=== PATIENT | female | born 1950 | race Caucasian/White ===

== ENCOUNTER 2019-05-08 11:20 | Outpatient (CLI) | payer MEDICARE, SELFPAY ==
--- NOTE | ~2019-05-08 | XR_ITS ---
EXAMINATION: XR wrist LT min 3V DATE: 05/08/2019 11:49 INDICATION: Left wrist pain. TECHNIQUE: 4 views of left wrist were obtained. COMPARISON: Left wrist radiographs 01/28/2018 FINDINGS: Bone alignment is normal. No fracture. Joint spaces are well maintained. IMPRESSION: 1. Normal left wrist. Reviewed, dictated and finalized at location A. ERY HELPER IMPRESSION: 1. Normal left wrist.
--- NOTE | ~2019-05-08 | XR_ITS ---
EXAMINATION: XR elbow LT min 3V DATE: 05/08/2019 11:49 INDICATION: Left elbow pain. TECHNIQUE: 4 views of left elbow were obtained. COMPARISON: Left elbow radiographs 01/28/2018 FINDINGS: Bone alignment is normal. No fracture. Joint spaces are well maintained. There is an enthes ophyte at lateral humeral epicondyle. There is no elbow joint effusion. IMPRESSION: 1. No fracture. Reviewed, dictated and finalized at location A. SHAPER HAND IMPRESSION: 1. No fracture.
== END 2019-05-08 11:21 | disposition home or self-care (01) ==
LOC: ANHIMG 11:32
PROVIDERS: PCP Family Medicine; Visit Provider Orthopaedic Surgery Sports Medicine
DX: M25.532 Pain in left wrist (principal); M25.522 Pain in left elbow
CPT/HCPCS: 73080; 73110

== ENCOUNTER 2019-05-13 09:31 | Outpatient (CLI) | payer MEDICARE, SELFPAY ==
--- NOTE | 2019-05-13 10:30 | NEURO_ITS ---
Patient Number: [id number] Impression: # Complains of pain in left hand and elbow. # Residual subtle left Carpal Tunnel Syndrome. # Left ulnar neuropathy across the elbow. # Note patient has ulnar to median cross innervation between the elbow and wrist. # Normal needle/EMG exam Nerve Conduction Studies Anti Sensory Summary Table Stim Site NR Peak (ms) P-T Amp (?V) Site1 Site2 Delta-P (ms) Dist (cm) Michael (m/s) Left Median Anti Sensory (2-3nd Digit) Wrist 3.5 64.2 Wrist 2-3nd Digit 3.5 14.0 40 Wrist 3.6 44.9 Wrist 2-3nd Digit 3.5 14.0 40 Left Radial Anti Sensory (Base 1st Digit) Wrist 2.1 28.7 Wrist Base 1st Digit 2.1 0.0 Left Ulnar Anti Sensory (5th Digit) Wrist 3.0 39.7 Wrist 5th Digit 3.0 14.0 47 Motor Summary Table Stim Site NR Onset (ms) O-P Amp (mV) Site1 Site2 Delta-0 (ms) Dist (cm) Michael (m/s) Left Median Motor (Abd Poll Brev) Wrist 3.8 1.4 Elbow Wrist 4.8 27.0 56 Elbow 8.6 1.8 Left Ulnar to Median Motor Run (Abd Dig Minimi) Wrist 4.5 2.1 A Elbow Wrist 5.8 27.0 47 A Elbow 10.3 1.9 B Elbow Wrist 9.3 19.0 20 B Elbow 13.8 0.1 Left Ulnar Motor Run (Abd Dig Minimi) Wrist 2.9 5.3 A Elbow Wrist 5.7 26.0 46 A Elbow 8.6 4.4 B Elbow Wrist 3.6 20.0 56 B Elbow 6.5 4.2 F Wave Studies NR F-Lat (ms) L-R F-Lat (ms) Left Median (Mrkrs) (Abd Poll Brev) 29.10 Left Ulnar (Mrkrs) (Abd Dig Min) 28.52 EMG Side Muscle Nerve Root Ins Act Fibs Amp Dur Recrt Comment Left 1stDorInt Ulnar C8-T1 Nml Nml Nml Nml Nml Left Ext Indicis Radial (Post Int) C7-8 Nml Nml Nml Nml Nml Left Ext Digitorum Radial (Post Int) C7-8 Nml Nml Nml Nml Nml Left BrachioRad Radial C5-6 Nml Nml Nml Nml Nml Left PronatorTeres Median C6-7 Nml Nml Nml Nml Nml Left Abd Poll Brev Median C8-T1 Nml Nml Nml Nml Nml Left ABD Dig Min Ulnar C8-T1 Nml Nml Nml Nml Nml MTDD
== END 2019-05-13 09:32 | disposition home or self-care (01) ==
PROVIDERS: PCP Family Medicine; Visit Provider Orthopaedic Surgery Sports Medicine
DX: G56.02 Carpal tunnel syndrome, left upper limb (principal); G56.22 Lesion of ulnar nerve, left upper limb
CPT/HCPCS: 95886; 95909

== ENCOUNTER 2020-04-04 15:50 | Outpatient (CLI) | payer MEDICARE, SELFPAY ==
--- NOTE | ~2020-04-04 | MM_ITS ---
EXAMINATION: MM screening mara BI w bradley HISTORY: Screening TECHNIQUE: Craniocaudal and mediolateral oblique 3-D tomosynthesis images were obtained and synthetic 2-D images were generated. CAD analysis was submitted and interpreted. COMPARISON: Comparison to multiple prior studies sequentially, with oldest reviewed study dated 09/2013. BREAST PARENCHYMAL COMPOSITION: There are scattered areas of fibroglandular density. FINDINGS: There is no evidence of suspicious mass, calcification, or architectural distortion to sugg est malignancy in either breast. There has been no suspicious interval change. IMPRESSION: 1. No mammographic evidence of malignancy. 2. Recommend routine screening mammography in one year. BI-RADS Category 1: Negative Reviewed, dictated and finalized at location A. OPERATOR
== END 2020-04-04 15:51 | disposition home or self-care (01) ==
LOC: ANHIMG 15:55
PROVIDERS: PCP Family Medicine; Visit Provider Family Medicine
DX: Z12.31 Encounter for screening mammogram for malignant neoplasm of breast (principal)
CPT/HCPCS: 77063; 77067

== ENCOUNTER 2020-08-07 09:37 | Outpatient (CLI) | payer MEDICARE, SELFPAY ==
--- NOTE | ~2020-08-07 | MR_ITS ---
EXAMINATION: MR brain/brain stem wo con DATE: 08/07/2020 10:29 INDICATION: Cerebral vascular disease with mild cognitive impairment, headaches and vertigo. TECHNIQUE: Magnetic resonance imaging (MRI) of the brain and brainstem was performed without intraven ous contrast. Sequences included sagittal and axial T1-weighted SE, axial diffusion-weighted FS SE, a xial T2*-weighted GRE, axial T2-weighted FLAIR, and axial T2-weighted FSE. Apparent diffusion coeffic ient (ADC) maps were created. COMPARISON: MR dated 12/30/2017 FINDINGS: There are no areas of restricted diffusion to suggest acute infarction. No intracranial hemorrhage or abnormal intracranial mass lesion. Small old lacunar infarcts at the left caudate nucleus and left f rontoparietal cobb radiata. Mild progression in scattered areas of nonspecific increased T2-weighte d signal intensity in the cerebral white matter, predominantly involving the deep, periventricular an d pontine white matter. There are no intraparenchymal signal abnormalities seen on the other pulse se quences. The ventricles are symmetric and normal in size. There are no abnormal extra-axial fluid col lections. Flow voids are seen in the cerebral arteries on the T2-weighted sequences consistent with t heir expected patency. Changes of bilateral intraocular lens replacement. Visualized orbits and soft tissues are unremarkable. IMPRESSION: 1. No acute intracranial process. 2. Small old infarcts in the left caudate nucleus and left frontal parietal cobb radiata. 3. Mild progression in still moderate nonspecific periventricular predominant nonspecific white matte r T2 hyperintensity consistent with chronic small vessel ischemic disease. Reviewed, dictated and finalized at location A. IMPRESSION: 1. No acute intracranial process. 2. Small old infarcts in the left caudate nucleus and left frontal parietal cor claude radiata. 3. Mild progression in still moderate nonspecific periventricular predominant n onspecific white matter T2 hyperintensity consistent with chronic small vessel ischemic disease.
--- NOTE | ~2020-08-07 | XR_ITS ---
XR knee LT 2V DATE: 08/07/2020 09:57 INDICATION: Left knee pain after fall 2 months ago TECHNIQUE: AP and lateral views COMPARISON: None FINDINGS: Diffuse osteopenia. No fracture or dislocation or joint effusion. No periosteal reaction or bone destruction. Joint space s are relatively preserved. No radiographic intra-articular loose body or chondrocalcinosis. IMPRESSION: Osteopenia Reviewed, dictated and finalized at location A. IMPRESSION: Osteopenia
== END 2020-08-07 09:38 | disposition home or self-care (01) ==
PROVIDERS: PCP Family Medicine; Visit Provider Family Medicine
DX: G31.84 Mild cognitive impairment of uncertain or unknown etiology (principal); I67.9 Cerebrovascular disease, unspecified; R93.0 Abnormal findings on diagnostic imaging of skull and head, not elsewhere classified; M85.862 Other specified disorders of bone density and structure, left lower leg
CPT/HCPCS: 70551; 73560

== ENCOUNTER 2021-01-23 14:15 | Emergency (ER) | payer MEDICARE, SELFPAY ==
[2021-01-23 14:22] VITALS: BP 174/91; PULSE 63; RESP 18; TEMP 36.6; O2SAT 99
--- NOTE | 2021-01-23 14:32 | ED.URI ---
HPI - URI/Sore Throat General Chief Complaint: Upper Respiratory Infection Stated Complaint: Sore throat, tightness in chest Time Seen by Provider: 01/23/21 14:39 Source: patient and RN notes reviewed Mode of arrival: ambulatory Limitations: no limitations History of Present Illness HPI Narrative: 70-year-old female presents with concern for midsternal chest pain and pressure, sore throat. Reports pain started yesterday. She denies shortness of breath. Denies cough. Denies rhinorrhea, nasal congestion, fever, syncope. Denies history of GERD or heartburn. Denies history of cardiac problems. She denies any relieving or exacerbating chest pain factors. Reports she feels some tenderness when she pushes on the midsternal area MD elicited complaint: sore throat and other (mid sternal chest pain) Related Data Home Medications Medication Instructions Recorded Confirmed atenolol 50 mg PO DAILY 01/23/21 01/23/21 duloxetine 60 mg PO DAILY 01/23/21 01/23/21 ezetimibe 10 mg PO DAILY 01/23/21 01/23/21 Allergies Allergy/AdvReac Type Severity Reaction Status Date / Time codeine Allergy Severe Anaphylaxis Verified 01/23/21 14:39 Sulfa (Sulfonamide Allergy Mild Rash Verified 01/23/21 14:39 Antibiotics) carbamazepine AdvReac Mild Nausea Verified 01/23/21 14:39 fenofibrate AdvReac Mild muscle pain Verified 01/23/21 14:39 atorvastatin AdvReac feeling Verified 01/23/21 14:39 ill, fatigued, headache Review of Systems Review of Systems: CONSTITUTIONAL: Denies malaise, chills, sweats, or fever. EYES: Denies visual changes, redness, or discharge. ENT: Denies rhinorrhea, congestion, sinus pain, otalgia. Reports sore throat. CARDIOVASCULAR: Reports midsternal chest pain. Denies palpitations, or edema. RESPIRATORY: Denies cough or dyspnea. GASTROINTESTINAL: Denies abdominal pain, nausea, vomiting SKIN: Denies rash or itching, bruising, redness MUSCULOSKELETAL: Denies myalgia. All systems reviewed & are unremarkable except as noted in HPI and below PMFSH Past Medical History Medical History Cholecystectomy planned Cubital tunnel syndrome on left Herpesviral infection, unspecified History of mumps Left carpal tunnel syndrome Surgical History Surgical History H/O cardiac catheterization History of appendectomy History of carpal tunnel surgery of left wrist History of hip replacement History of lumbar surgery History of thoracotomy Hx of elbow surgery L/ for cubital tunnel Family History Family History Father , age 53 Hypertension Family history of coronary artery disease Acute myocardial infarction Sibling Macular degeneration Mother , age 76 Family history of elevated blood lipids Cerebrovascular accident Family history of diabetes mellitus in first degree relative Family history of coronary artery disease Patient's mother is Diabetes mellitus Sibling Diabetes mellitus Hypertension Daughter Hypertension Allergies Social History Social History Second hand tobacco smoke exposure: No Alcohol intake: never Comments At time of signature, agree with nursing past medical, surgical, social and family history. There is no relevant family history pertinent to the presenting complaint Exam Narrative: GENERAL: Well-appearing, well-nourished, and in no acute distress. HEAD: Normocephalic, atraumatic. EYES: PERRLA, sclera clear, and EOMI. ENT: Nares clear. Mucous membranes moist. Oropharynx without erythema or lesions. Tonsils not enlarged and without exudate. NECK: Supple. CHEST: No respiratory distress. Clear to auscultation. No bony deformities, no asymmetry. Speaks in full sentences. HEART: Regular rate and rhythm. No murmur heard. Normal per
--- NOTE | 2021-01-23 14:45 | ECG_ITS ---
Measurements Intervals [place] Rate: 67 P: -1 NV: 158 QRS: 45 QRSD: 79 T: 135 QT: 394 QTc: 419 Interpretive Statements SINUS RHYTHM NONSPECIFIC ST & T-WAVE ABNORMALITY- ANT/HIGH LAT LEADS BASELINE WANDER- I, II, III, AVR, AVL, AVF, V3-V6 BORDERLINE ECG Electronically Signed On 01-23-2021 15:18:49 CDT by Lucio Giron D.O.
== END 2021-01-23 15:05 | disposition short-term general hospital (02) ==
PROVIDERS: Emergency Provider Nurse Practitioner; PCP Family Medicine
DX: R07.9 Chest pain, unspecified (principal)
CPT/HCPCS: 87081; 87880; 93005; 99213; G0463

== ENCOUNTER 2021-01-23 15:43 | Inpatient (IN) | payer MEDICARE, SELFPAY ==
[2021-01-23] VITALS (18 sets, daily range): BP systolic 110–167; BP diastolic 65–128; PULSE 66–92; RESP 14–28; TEMP 36.5–36.8; O2SAT 97–100; BMI 23.3
--- NOTE | ~2021-01-23 | XR_ITS ---
EXAMINATION: XR chest 2V DATE: 01/23/2021 16:36 INDICATION: Mid chest tightness TECHNIQUE: PA and lateral views of the chest are obtained. COMPARISON: 06/27/2018 FINDINGS: The lungs are free of acute opacities. There is no pleural effusion or pneumothorax. The ca rdiomediastinal silhouette is normal. There is moderate thoracic spondylosis. IMPRESSION: 1. No acute cardiopulmonary abnormality. Reviewed, dictated and finalized at location A.
--- NOTE | 2021-01-23 15:50 | ECG_ITS ---
Measurements Intervals [place] Rate: 68 P: -7 NM: 154 QRS: 20 QRSD: 72 T: 136 QT: 394 QTc: 420 Interpretive Statements SINUS RHYTHM T WAVE ABNORMALITY IN HIGH LATERAL LEADS- CONSIDER ISCHEMIA BASELINE ARTIFACT- III, AVR, AVL, AVF ABNORMAL ECG Electronically Signed On 01-23-2021 17:22:23 CDT by Lucio Giron D.O.
[2021-01-23 16:16] LABS: Basophils Absolute Auto 0.1 K/mm3 (0.0-0.1); Basophils Percent Auto 0.4 % (0.2-1.2); Eosinophils Absolute Auto 0.1 K/mm3 (0-0.3); Eosinophils Percent Auto 0.8 % (0-4.4); Hematocrit 38.5 % (37.0-47.0); Hemoglobin 12.9 g/dL (12.0-15.0); Immature Granulocyte Absolute 0.03 K/mm3 (0.00-0.031); Immature Granulocyte Percent A 0.3 % (0-0.5); Lymphocytes Absolute Auto 2.21 K/mm3 (0.9-3.2); Lymphocytes Percent Auto 18.7 % (18.3-44.2); Mean Corpuscular HGB Conc 33.5 g/dl (32-36); Mean Corpuscular Hemoglobin 29.5 pg (26-34); Mean Corpuscular Volume 87.9 fl (80-100); Mean Platelet Volume 9.1 fl (7.4-10.4); Monocytes Absolute Auto 0.7 K/mm3 (0.1-0.6); Neutrophils Absolute Auto 8.7 K/mm3 (1.3-6.7); Neutrophils Percent Auto 73.8 % (45.5-73.1); Platelet Count Result 377 k/mm3 (150-375); Red Blood Count 4.38 M/mm3 (4.2-5.4); Red Cell Distribution Width 12.9 % (11.5-14.5); White Blood Count 11.8 K/mm3 (4.5-10.0)
[2021-01-23 16:25] LABS: INR 0.9; Prothrombin Time 11.6 Seconds (11.1-14.7)
[2021-01-23 16:26] LABS: Partial Thromboplastin Time 27.1 SECONDS (22.3-36.8)
[2021-01-23 16:30] LABS: Anion Gap 8 mmol/L (8-16); Blood Urea Nitrogen 18 mg/dL (7-17); Calcium 9.9 mg/dL (8.4-10.2); Carbon Dioxide 28 mmol/L (22-30); Chloride 103 mmol/L (98-107); Estimated CRCL calculation 73 ml/min; Estimated Glomerular Filt Rate > 60; Glucose 121 mg/dL (65-110); Sodium 139 mmol/L (137-145)
[2021-01-23] MEDS: ASPIRIN 81 MG CHEWABLE TABLET 324 MG PO (16:58)
--- NOTE | 2021-01-23 17:00 | ECG_ITS ---
Measurements Intervals [place] Rate: 67 P: -2 WA: 150 QRS: 21 QRSD: 81 T: 142 QT: 433 QTc: 458 Interpretive Statements SINUS RHYTHM T WAVE ABNORMALITY IN HIGH LATERAL LEADS- CONSIDER ISCHEMIA BASELINE ARTIFACT- II, III, AVR, AVF, V1, V3-V6 ABNORMAL ECG Electronically Signed On 01-24-2021 13:03:35 CDT by Lucio Giron D.O.
--- NOTE | 2021-01-23 17:08 | ED.GENADULT ---
HPI - General Adult General Chief complaint: Chest Pain Stated complaint: chest pressure Time Seen by Provider: 01/23/21 16:47 Source: patient History of Present Illness HPI narrative: Patient is a 70 y/o female complaint of mid sternal chest pain starting yesterday. She describes the pain as a pressure and rates it as 8/10. There no known alleviating or exacerbating factor. However, her pain is lessening spontaneously. There is no pain radiation. She has no SOB or diaphoresis. Related Data Home Medications Medication Instructions Recorded Confirmed atenolol 50 mg PO DAILY 01/23/21 01/23/21 duloxetine 60 mg PO DAILY 01/23/21 01/23/21 ezetimibe 10 mg PO DAILY 01/23/21 01/23/21 Allergies Allergy/AdvReac Type Severity Reaction Status Date / Time codeine Allergy Severe Anaphylaxis Verified 01/23/21 14:39 Sulfa (Sulfonamide Allergy Mild Rash Verified 01/23/21 14:39 Antibiotics) carbamazepine AdvReac Mild Nausea Verified 01/23/21 14:39 fenofibrate AdvReac Mild muscle pain Verified 01/23/21 14:39 atorvastatin AdvReac feeling Verified 01/23/21 14:39 ill, fatigued, headache Review of Systems Constitutional: Constitutional: Denies chills, Denies fever(s), Denies headache(s) and Denies weakness Eyes: Eyes: Denies blurry vision ENT: Denies headache(s) and Denies neck pain Cardiovascular: Cardiovascular: Reports chest pain and Denies dyspnea Respiratory: Respiratory: Denies cough and Denies dyspnea Gastrointestinal: Gastrointestinal: Denies abdominal pain, Denies diarrhea, Denies nausea and Denies vomiting Genitourinary: Genitourinary: Denies hematuria and Denies dysuria Musculoskeletal: Musculoskeletal: Denies back pain and Denies neck pain Neurologic: Denies headache(s) and Denies weakness [facility] Past Medical History Medical History (Updated 01/23/21 @ 21:33 by Elyse Day MD) Arthritis Cerebrovascular accident 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 Cubital tunnel syndrome on left Herpesviral infection, unspecified History of mumps Hyperlipidemia Hypertension Left carpal tunnel syndrome Surgical History Surgical History (Updated 01/23/21 @ 19:15 by Alley Nguyen PA-C) History of appendectomy History of bilateral cataract extraction History of cardiac catheterization History of carpal tunnel surgery of left wrist History of cholecystectomy History of elbow surgery Left cubital tunnel release History of lumbar surgery History of thoracotomy History of total replacement of both hip joints Status post repair of paraesophageal diaphragmatic hernia Family History Family History Father , age 53 Hypertension Family history of coronary artery disease Acute myocardial infarction Sibling Macular degeneration Mother , age 76 Family history of elevated blood lipids Cerebrovascular accident Family history of diabetes mellitus in first degree relative Family history of coronary artery disease Patient's mother is Diabetes mellitus Sibling Diabetes mellitus Hypertension Daughter Hypertension Allergies Social History Social History (Updated 01/23/21 @ 19:16 by Alley Nguyen PA-C) Social History: Surrogate decision-maker: Horacio Arce, . CODE STATUS: Full code. Smoking status: Never smoker Second hand tobacco smoke exposure: No Alcohol intake: never Substance use: never Additional living arrangements comments: Lives with her in [place]. She has an adult daughter. 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 Spiritual care concerns: No Exam Const: General: no acute distress and well developed Orientation/consciousness: oriented to person, oriented to place, oriented to time and patient oriented x3 H
--- NOTE | 2021-01-23 18:00 | PM.IMHP ---
H&P: HPI History of Present Illness Date/Time: 01/23/21 18:00 Chief Complaint: Chest pain. Narrative: This is a 70-year-old female with hypertension and dyslipidemia who presented to the emergency department earlier today from urgent care for evaluation of chest pain. While out shopping yesterday the patient developed a sudden heaviness in her chest like a brick that lasted approximately 20 minutes before resolving. She had similar symptoms occur last evening simply while sitting down and while shopping today and so she went to urgent care where she was found to have mild EKG abnormalities. She was then referred to the emergency department where she was found to have T wave abnormalities in the high lateral leads as well as a troponin of 4.020. Her symptoms resolved while she was sitting in triage and have not returned. She has no personal history of cardiac disease but did have a cardiac catheterization 1994 for evaluation of chest pain. Patient does mention that her father from an HI at age 53. She denies associated nausea, vomiting, shortness of breath, and sweats Review of Systems Review of Systems: 12 systems were reviewed. She reports a mild scratchy throat. No sinus congestion, rhinorrhea, or otalgia. She denies fever, chills, and sweats. No sick contacts. No exposure to those positive for COVID-19. Patient reports having issues with her left lower extremity for several years, occasionally feeling as though it may give out or some discomfort while walking. Except as documented, other systems were reviewed and are negative. 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 Cubital tunnel syndrome on left Herpesviral infection, unspecified History of mumps Hyperlipidemia Hypertension Left carpal tunnel syndrome Surgical History Surgical History (Updated 01/23/21 @ 19:15 by Alley Nguyen PA-C) History of appendectomy History of bilateral cataract extraction History of cardiac catheterization History of carpal tunnel surgery of left wrist History of cholecystectomy History of elbow surgery Left cubital tunnel release History of lumbar surgery History of thoracotomy History of total replacement of both hip joints Status post repair of paraesophageal diaphragmatic hernia Family History Family History Father , age 53 Hypertension Family history of coronary artery disease Acute myocardial infarction Sibling Macular degeneration Mother , age 76 Family history of elevated blood lipids Cerebrovascular accident Family history of diabetes mellitus in first degree relative Family history of coronary artery disease Patient's mother is Diabetes mellitus Sibling Diabetes mellitus Hypertension Daughter Hypertension Allergies Social History Social History (Updated 01/23/21 @ 19:16 by Alley Nguyen PA-C) Social History: Surrogate decision-maker: Horacio Arce, . CODE STATUS: Full code. Smoking status: Never smoker Second hand tobacco smoke exposure: No Alcohol intake: never Substance use: never Additional living arrangements comments: Lives with her in [place]. She has an adult daughter. 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 Meds Home Medications and Allergies Home Medications Medication Instructions Recorded Confirmed Type atenolol 50 mg PO DAILY 01/23/21 01/23/21 History duloxetine 60 mg PO DAILY 01/23/21 01/23/21 History ezetimibe 10 mg PO DAILY 01/23/21 01/23/21 History Allergies Allergy/AdvReac Type Severity Reaction Status Date / Time codeine Allergy Severe Anaphylaxis Verified 01/23
[2021-01-23 18:46] LABS: Basophils Percent Auto 0.3 % (0.2-1.2); Eosinophils Absolute Auto 0.1 K/mm3 (0-0.3); Eosinophils Percent Auto 0.8 % (0-4.4); Hematocrit 40.6 % (37.0-47.0); Hemoglobin 13.5 g/dL (12.0-15.0); Immature Granulocyte Absolute 0.05 K/mm3 (0.00-0.031); Immature Granulocyte Percent A 0.4 % (0-0.5); Lymphocytes Absolute Auto 2.44 K/mm3 (0.9-3.2); Lymphocytes Percent Auto 18.3 % (18.3-44.2); Mean Corpuscular HGB Conc 33.3 g/dl (32-36); Mean Corpuscular Hemoglobin 30.2 pg (26-34); Mean Corpuscular Volume 90.8 fl (80-100); Mean Platelet Volume 9.3 fl (7.4-10.4); Monocytes Absolute Auto 0.9 K/mm3 (0.1-0.6); Monocytes Percent Auto 6.4 % (2.6-8.5); Neutrophils Absolute Auto 9.8 K/mm3 (1.3-6.7); Neutrophils Percent Auto 73.8 % (45.5-73.1); Platelet Count Result 350 k/mm3 (150-375); Red Blood Count 4.47 M/mm3 (4.2-5.4); Red Cell Distribution Width 12.9 % (11.5-14.5); White Blood Count 13.3 K/mm3 (4.5-10.0)
[2021-01-23 18:55] LABS: INR 0.9; Prothrombin Time 11.8 Seconds (11.1-14.7)
[2021-01-23 18:56] LABS: Partial Thromboplastin Time 25.7 SECONDS (22.3-36.8)
[2021-01-23] MEDS: HEPARIN SODIUM 5,000 UNITS/ML VIAL 3500 UNITS IV PUSH (19:06)
[2021-01-23] MEDS: HEPARIN SOD/D5W 100 UNITS/ML 25,000 UNITS/250 ML BAG 7 UNITS IV CONT (19:07)
--- NOTE | 2021-01-23 20:40 | ADMGEN ---
This patient, Queenie Arce, was admitted to IMU Room 206-01 at 2030. Patient/family oriented to hospital policies and general routines including ID bracelet, bed and alarms, visiting hours, pain management, procedures, bathroom and other care routines, personal items, smoking policy, room service/diet, and visiting hours. Information on how to activate the Rapid Response Team has been discussed. Patient/Family are encouraged to report perceived risks to care and to ask questions if they do not understand what they are told or what they should do.
[2021-01-23 21:50] LABS: Hemoglobin A1C 5.9 % (<5.7)
[2021-01-24] VITALS (19 sets, daily range): BP systolic 125–158; BP diastolic 8–88; PULSE 68–93; RESP 18–30; TEMP 36.2–37.1; O2SAT 90–100
[2021-01-24] MEDS: NITROGLYCERIN OINTMENT 1 INCH DOSE 0.5 INCH TRANSDERM (04:51)
[2021-01-24 05:25] LABS: Basophils Absolute Auto 0.1 K/mm3 (0.0-0.1); Basophils Percent Auto 0.4 % (0.2-1.2); Eosinophils Absolute Auto 0.1 K/mm3 (0-0.3); Eosinophils Percent Auto 0.5 % (0-4.4); Hematocrit 37.9 % (37.0-47.0); Hemoglobin 12.8 g/dL (12.0-15.0); Immature Granulocyte Absolute 0.07 K/mm3 (0.00-0.031); Immature Granulocyte Percent A 0.5 % (0-0.5); Lymphocytes Absolute Auto 1.95 K/mm3 (0.9-3.2); Lymphocytes Percent Auto 14.3 % (18.3-44.2); Mean Corpuscular HGB Conc 33.8 g/dl (32-36); Mean Corpuscular Hemoglobin 30.2 pg (26-34); Mean Corpuscular Volume 89.4 fl (80-100); Mean Platelet Volume 9.8 fl (7.4-10.4); Monocytes Percent Auto 7.3 % (2.6-8.5); Neutrophils Absolute Auto 10.5 K/mm3 (1.3-6.7); Platelet Count Result 341 k/mm3 (150-375); Red Blood Count 4.24 M/mm3 (4.2-5.4); Red Cell Distribution Width 12.9 % (11.5-14.5); White Blood Count 13.6 K/mm3 (4.5-10.0)
[2021-01-24 05:40] LABS: Partial Thromboplastin Time 59.8 SECONDS (22.3-36.8)
[2021-01-24 05:47] LABS: Alanine Aminotransferase 35 U/L (4-35); Albumin Level 4.8 g/dL (3.5-5.1); Alkaline Phosphatase 98 U/L (38-126); Anion Gap 9 mmol/L (8-16); Aspartate Amino Transferase 68 U/L (14-36); Bilirubin,Total 0.9 mg/dL (0.2-1.3); Blood Urea Nitrogen 12 mg/dL (7-17); Calcium 9.8 mg/dL (8.4-10.2); Carbon Dioxide 29 mmol/L (22-30); Chloride 99 mmol/L (98-107); Cholesterol 260 mg/dL (0-200); Estimated CRCL calculation 89 ml/min; Estimated Glomerular Filt Rate > 60; Glucose 135 mg/dL (65-110); HDL Direct 42 mg/dL; Magnesium 1.5 mg/dL (1.6-2.3); Potassium 3.8 mmol/L (3.4-5.0); Sodium 137 mmol/L (137-145); Triglycerides 252 mg/dL (<150)
[2021-01-24] MEDS: HEPARIN SODIUM 5,000 UNITS/ML VIAL 2500 UNITS IV PUSH (05:59)
[2021-01-24 06:02] LABS: LDL Cholesterol Direct 154 mg/dL
--- NOTE | 2021-01-24 08:39 | PM.CNCAR ---
Assessment and Plan Assessment and plan (1) Non-ST elevation (NSTEMI) myocardial infarction: Code(s): I21.4 - Non-ST elevation (NSTEMI) myocardial infarction Status: Acute Assessment and Plan: 70-year-old female with hypertension, dyslipidemia, history of ? TIA. Patient presents with 2 day history of substernal chest discomfort. EKG shows ST-T abnormalities suggestive of ischemia. Troponins are elevated. Clinical presentation consistent with non ST elevation myocardial infarction. After discussing benefits risks and alternatives, patient is willing to proceed with invasive strategy with cardiac catheterization with an eye towards intervention, as necessary. Standard treatment for acute coronary syndrome has been initiated. (2) Hypertension: Code(s): I10 - Essential (primary) hypertension Status: Acute History of Present Illness History of Present Illness Consult date/time: 01/24/21 08:39 DATE OF CONSULT: 01/24/2021 REASON FOR CONSULT: Elevated troponin REQUESTING PHYSICIAN:Thony Merlos MD CHIEF COMPLAINT: Chest pain HPI: 70-year-old female with hypertension, dyslipidemia, history of ? TIA. Patient presented to [facility] Emergency Room on 01/23/2021 with 2 day history of lower substernal chest discomfort. She describes her chest pain as pressure-like sensation, which almost feels like a brick on the chest , associated with mild shortness of breath. She denied palpitation, dizziness or syncope. Her symptoms have been intermittent over last few days, each time lasting for about 10-15 minutes. Patient was unable to find any aggravating or relieving factors. She denied any personal history of ND, angina, heart failure or arrhythmias. She gives family history of CAD in her parents. Patient had modest improvement in her symptoms with nitroglycerin patch. She was given aspirin, and has also been on unfractionated heparin. EKG on my personal evaluation showed sinus rhythm, ST-T abnormality suggestive of ischemia. Troponins are significantly elevated with peak troponin level of 5.6 which is trending downwards. Chest x-ray is grossly unremarkable. Remote echocardiogram from 05/15/2006 showed normal LV systolic function without any significant abnormalities. Reason For Visit: NSTEMI Review of Systems Review of Systems: General: Negative for fever, chills, fatigue Psychological: Negative for anxiety, depression Ophthalmic: negative for loss of vision ENT: Negative for epistaxis, headaches Allergy and immunology: Negative for hives, nasal congestion Hematologic and lymphatic: Negative for overt bleeding problems Endocrine: Negative for hot flashes, palpitations Respiratory: Negative for cough, hemoptysis Cardiovascular: Positive for chest pain and shortness of breath Gastrointestinal: Negative for abdominal pain Musculoskeletal: Negative for myalgia, joint pains Neurological: Negative for weakness Dermatological: Negative for rash, skin discoloration PMFSH Past Medical History Medical History Arthritis Cerebrovascular accident 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 Cubital tunnel syndrome on left Herpesviral infection, unspecified History of mumps Hyperlipidemia Hypertension Left carpal tunnel syndrome Surgical History Surgical History History of appendectomy History of bilateral cataract extraction History of cardiac catheterization History of carpal tunnel surgery of left wrist History of cholecystectomy History of elbow surgery Left cubital tunnel release History of lumbar surgery History of thoracotomy History of total replacement of both hip joints Status post repair of paraesophageal diaphragmatic hernia Family History Family History Father , age
[2021-01-24] MEDS: MAGNESIUM SULF 2 GM/WATER 50ML 2 GM/50 ML BAG IVPB (09:01)
[2021-01-24] MEDS: DULoxetine HCL 60 MG CAPSULE.DR PO (09:01)
[2021-01-24] MEDS: EZETIMIBE 10 MG TABLET PO (09:01)
[2021-01-24] MEDS: atenoloL 50 MG TABLET PO (09:01)
[2021-01-24] MEDS: ASPIRIN 81 MG ENTERIC TABLET PO (09:01)
--- NOTE | 2021-01-24 09:21 | WPDHPUPDATE1 ---
History and Physical Update Update Date/Time: 01/24/21 09:21 History and Physical has been reviewed, including an updated exam of the patient. There are NO changes in the patient's condition. Risks, benefits, and alternatives have been discussed and questions answered. Patient agrees to proceed with procedure.
--- NOTE | 2021-01-24 09:21 | WPDMODSED ---
Moderate Sedation Note-Pt Data Patient Data Allergies Allergy/AdvReac Type Severity Reaction Status Date / Time codeine Allergy Severe Anaphylaxis Verified 01/23/21 14:39 Sulfa (Sulfonamide Allergy Mild Rash Verified 01/23/21 14:39 Antibiotics) carbamazepine AdvReac Mild Nausea Verified 01/23/21 14:39 fenofibrate AdvReac Mild muscle pain Verified 01/23/21 14:39 atorvastatin AdvReac feeling Verified 01/23/21 14:39 ill, fatigued, headache Home Medications Medication Instructions Recorded Confirmed Type atenolol 50 mg PO DAILY 01/23/21 01/23/21 History duloxetine 60 mg PO DAILY 01/23/21 01/23/21 History ezetimibe 10 mg PO DAILY 01/23/21 01/23/21 History Current Medications: Active Medications Aspirin (Aspirin 81 Mg Enteric Tablet) 81 mg PO QAM [facility] Last Admin: 01/24/21 09:01 Dose: 81 mg Documented by: Atenolol (Atenolol 50 Mg Tablet) 50 mg PO DAILY [facility] Last Admin: 01/24/21 09:01 Dose: 50 mg Documented by: Duloxetine HCl (Duloxetine Hcl 60 Mg Capsule.Dr) 60 mg PO DAILY [facility] Last Admin: 01/24/21 09:01 Dose: 60 mg Documented by: Ezetimibe (Ezetimibe 10 Mg Tablet) 10 mg PO DAILY [facility] Last Admin: 01/24/21 09:01 Dose: 10 mg Documented by: Heparin Sodium (Porcine) (Heparin Sodium 5,000 Units/Ml Vial) 4,000 units IV PUSH PRN PRN PRN Reason: aPTT less than 55 seconds Heparin Sodium (Porcine) (Heparin Sodium 5,000 Units/Ml Vial) 2,500 units IV PUSH PRN PRN PRN Reason: aPTT 55 - 70 seconds Last Admin: 01/24/21 05:59 Dose: 2,500 units Documented by: Heparin Sodium/Dextrose (Heparin Sodium/D5w 100 Units/Ml) 25,000 units in 250 mls @ 8 mls/hr IV CONT .Q24H [facility]; Protocol Last Titration: 01/24/21 05:59 Dose: 800 units/hr, 8 mls/hr Documented by: Nitroglycerin (Nitroglycerin Ointment 1 Inch Dose) 0.5 inch TRANSDERM Q6HR [facility] Last Admin: 01/24/21 06:33 Dose: Not Given Documented by: Rosuvastatin Calcium (Rosuvastatin 2.5 Mg Tablet) 2.5 mg PO [facility] Sedation/Anesthesia: No previous sedation/anesthesia problems (including family history). 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 Cubital tunnel syndrome on left Herpesviral infection, unspecified History of mumps Hyperlipidemia Hypertension Left carpal tunnel syndrome Surgical History Surgical History History of appendectomy History of bilateral cataract extraction History of cardiac catheterization History of carpal tunnel surgery of left wrist History of cholecystectomy History of elbow surgery Left cubital tunnel release History of lumbar surgery History of thoracotomy History of total replacement of both hip joints Status post repair of paraesophageal diaphragmatic hernia Family History Family History Father , age 53 Hypertension Family history of coronary artery disease Acute myocardial infarction Sibling Macular degeneration Mother , age 76 Family history of elevated blood lipids Cerebrovascular accident Family history of diabetes mellitus in first degree relative Family history of coronary artery disease Patient's mother is Diabetes mellitus Sibling Diabetes mellitus Hypertension Daughter Hypertension Allergies Social History Social History Social History: Surrogate decision-maker: Horacio Arce, . CODE STATUS: Full code. Smoking status: Never smoker Second hand tobacco smoke exposure: No Alcohol intake: never Substance use: never Additional living arrangements comments: Lives with her in [place]. She has an adult daughter. Occupation/Education: retired Additional occupation/education comments:
--- NOTE | 2021-01-24 09:36 | PC.NURSE ---
Patient to cathode builder via stretcher. Report given to EZRA Griggs.
--- NOTE | 2021-01-24 10:35 | SUR.PHASEII ---
BEGIN PHASE II RECOVERY. RETURNS TO M1 [facility] 5 S/P [facility] W/ DR. MO. 5FR SHEATH INTACT R. GROIN. ALERT, DROWSY. DENIES CP OR SOB. ORIENTED TO ROOM, ACTIVITY RESTRICTIONS POST CATH, SHEATH PULL TO COME. WILL CONTINUE TO MONITOR.
--- NOTE | 2021-01-24 10:46 | SUR.PHASEII ---
SHEATH PULL FROM R. GROIN SITE BY NEVILLE Perdomo RN PER PROTOCOL. FIRM, STEADY MANUAL PRESSURE TO SITE UNTIL HEMOSTASIS ACHIEVED. SEE FLOWSHEET. WILL CONTINUE TO MONITOR.
--- NOTE | 2021-01-24 10:47 | WPDCARDPROC ---
Cardiac Cath Procedure Note Date of procedure:: 01/24/21 Performing physician:: Fred Meyers MD Procedure Procedure note:: LEFT HEART CATHETERIZATION AND CORONARY ANGIOGRAM REPORT DATE OF PROCEDURE:01/24/2021 INDICATION FOR PROCEDURE: Non ST-elevation myocardial infarction BRIEF CLINICAL HISTORY: 70-year-old female with hypertension, dyslipidemia, history of ? TIA. Patient presented to [facility] on 01/23/2021 with 2 day history of substernal chest discomfort. EKG showed ST-T abnormalities suggestive of ischemia. Troponins were elevated with peak troponin of 5.6 which is trending downwards. Clinical presentation consistent with non ST elevation myocardial infarction. After discussing benefits risks and alternatives, patient was willing to proceed with invasive strategy with cardiac catheterization with an eye towards intervention, as necessary. Standard treatment for acute coronary syndrome has been initiated. Benefits and risks of the procedure were discussed with the patient in depth, and informed consent was obtained prior to the procedure. Risks of the procedure include but are not limited to vascular complications including groin hematoma, retroperitoneal bleed, vessel perforation; periprocedural IA, cardiac arrhythmias, stroke, contrast induced nephropathy, and . After discussing all the benefits, risks and alternatives, patient was willing to proceed with the procedure. PROCEDURES PERFORMED: 1. Left heart catheterization- Selective left and right coronary angiogram; left ventriculogram and hemodynamic assessment 2. Moderate sedation-CPT code 97769 MODERATE SEDATION: Midazolam 1 mg; fentanyl 25 mcg; Start time 1001 , Stop time 1023 ; Total kgwy-us-[id number] time 22 minutes; Indu Saini RN was trained observer for moderate sedation. ACCESS SITE: Right common femoral artery PROCEDURE NOTE: After obtaining informed consent, patient was brought to catheterization lab and prepped and draped in a usual sterile manner. After local anesthesia with lidocaine, right common femoral artery access was taken with micropuncture needle followed by insertion of a 5 Trin[place] sheath. Selective left and right coronary angiogram was performed using 5 [place] JL4 and JR4 catheters respectively. Orthogonal views were taken. Next, a 5 [place] pigtail catheter was advanced in the LV cavity and was flushed with normal saline. LV pressure measurement was performed. After this, left ventriculogram was performed. The catheter was flushed again, and gradient across the aortic valve was measured on the pullback of the catheter . The sheath was secured in place which will be taken out in the warehouse general laborer holding area, manual pressure will be used for local hemostasis. Patient tolerated procedure well without any immediate procedure related complications. FINDINGS: LEFT MAIN CORONARY: The left main coronary artery is a large caliber vessel with about 20-30% narrowing in the distal segment before it bifurcates into LAD and left circumflex branches. LEFT ANTERIOR DESCENDING ARTERY: The LAD is a medium caliber vessel with diffuse disease. There is diffuse 50-70% stenosis in the proximal and upper part of the mid segment; high-grade about 70-80% stenosis in the lower part of the mid segment. The major diagonal branch is totally occluded right operate his origin -subacute versus chronic. The LAD tapers distally and reaches LV apex. LEFT CIRCUMFLEX ARTERY: The LCX is a medium to large caliber, codominant vessel. OM1 branch is a small caliber vessel with about 70-80% stenosis at the ostium. Om 2 branch is a medium caliber, tortuous vessel with high-grade about 90% stenosis at the ostium and diffuse disease in the proximal segment. OM3 branches a smaller caliber vessel without significant focal stenosis. LPDA is a small to medium caliber vessel without significant focal stenosis. RIGHT CORONARY ARTERY: The right coronary artery is a medium caliber , tortuou
--- NOTE | 2021-01-24 11:04 | PM.TDS ---
Transfer Discharge Sum: Prov Provider Date of admission: 01/23/21 18:31 Primary care physician: Huma Candelario MD Admitting clinician: Brett Merlos MD Consults: 01/24/21 Consult to Physician Routine Comment: elevated trop. 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 Patient is being transferred to [facility] for further cardiovascular care which will include multivessel PCI versus CABG. Spoke with CT surgeon at [facility]. Additional cardiovascular care at [facility]. Transfer Discharge Sum: Med Medications Active and Home Medications: Home Medications atenolol 50 mg PO DAILY 01/23/21 [History Confirmed 01/23/21] duloxetine 60 mg PO DAILY 01/23/21 [History Confirmed 01/23/21] ezetimibe 10 mg PO DAILY 01/23/21 [History Confirmed 01/23/21] Active Medications Aspirin (Aspirin 81 Mg Enteric Tablet) [facility] Last Admin: 01/24/21 09:01 Dose: 81 mg Documented by: Atenolol (Atenolol 50 Mg Tablet) 50 mg PO DAILY [facility] Last Admin: 01/24/21 09:01 Dose: 50 mg Documented by: Duloxetine HCl (Duloxetine Hcl 60 Mg Capsule.) 60 mg PO DAILY [facility] Last Admin: 01/24/21 09:01 Dose: 60 mg Documented by: Ezetimibe (Ezetimibe 10 Mg Tablet) 10 mg PO DAILY [facility] Last Admin: 01/24/21 09:01 Dose: 10 mg Documented by: Heparin Sodium (Porcine) (Heparin Sodium 5,000 Units/Ml Vial) 4,000 units IV PUSH PRN PRN PRN Reason: aPTT less than 55 seconds Heparin Sodium (Porcine) (Heparin Sodium 5,000 Units/Ml Vial) 2,500 units IV PUSH PRN PRN PRN Reason: aPTT 55 - 70 seconds Last Admin: 01/24/21 05:59 Dose: 2,500 units Documented by: Heparin Sodium/Dextrose (Heparin Sodium/D5w 100 Units/Ml) 25,000 units in 250 mls @ 8 mls/hr IV CONT .Q24H [facility]; Protocol Last Titration: 01/24/21 09:15 Dose: Infused Documented by: Sodium Chloride (Normal Saline Iv) 1,000 mls @ 125 mls/hr IV CONT .Q8H ONE Stop: 01/24/21 19:01 Nitroglycerin (Nitroglycerin Ointment 1 Inch Dose) 0.5 inch TRANSDERM Q6HR [facility] Last Admin: 01/24/21 06:33 Dose: Not Given Documented by: Rosuvastatin Calcium (Rosuvastatin 2.5 Mg Tablet) 2.5 mg PO QAM [facility] Transfer Discharge Sum: Hosp Hospital Course Hospital course: Queenie Arce is a 70 year old female with hypertension, dyslipidemia, history of ? TIA. Patient presented to [facility] on 01/23/2021 with 2 day history of substernal chest discomfort. EKG showed ST-T abnormalities suggestive of ischemia. Troponins were elevated with peak troponin of 5.6 which is trending downwards. Clinical presentation consistent with non ST elevation myocardial infarction. After discussing benefits risks and alternatives, patient was willing to proceed with invasive strategy with cardiac catheterization with an eye towards intervention, as necessary. Patient's coronary angiogram showed multivessel CAD involving proximal-mid LAD; major diagonal branch; OM branch of LCX, and terminal branches of RCA. She was taken off the catheterization table and revascularization options will be discussed with her which will include multivessel PCI versus surgical revascularization with CABG. I spoke with the CT surgeon at [facility]- . Patient will be transferred to [facility] for further cardiovascular care. Patient agreed with the management plan. Time Spent with Patient Time attestation: Total time spent providing and/or coordinating transfer services: 40 minutes Exam Narrative:
--- NOTE | 2021-01-24 11:10 | SUR.PHASEII ---
HEMOSTASIS ACHIEVED TO R. GROIN PUNCTURE SITE AFTER 25 MINUTE MANUAL PRESSURE HOLD BY NEVILLE Perdomo RN. TOLERATED WELL. SITE SOFT, NONTENDER. NO BLEEDING OR HEMATOMA NOTED. SITE DRESSED W/ STAT SEAL, GAUZE, AND TEGADERM. REVIEWED BEDREST ACTIVITY RESTRICTIONS. REVIEWED ORDERS. BEDREST X 6 HOURS UNTIL 1710. WILL CONTINUE TO MONITOR.
--- NOTE | 2021-01-24 12:05 | SUR.PHASEII ---
REPORT CALLED TO LUIS Cabrera RN IN IMU. PROCEDURE DISK PLACED ON CHART. FACE SHEET FAXED TO [facility] AT [phone]. DR. WHITMAN HAS BEEN HERE TO SEE PT AND UPDATED. REQUESTED ORDER FROM COCO SMITH NP RE: HEPARIN GTT: DOES IT NEED TO BE RESTARTED LATER? STATES SHE WILL ENTER ORDER. NOTIFIED PRIMARY RN, LUIS Cabrera, OF SUCH AND TO WATCH FOR ORDER.
--- NOTE | 2021-01-24 12:15 | SUR.PHASEII ---
END PHASE II RECOVERY. RETURNED TO IMU 206.1 VIA STRETCHER. NO NEW CHANGES IN ASSESSMENT. IVF'S RUNNING ORDERED. Lavon MARTEL SITE CHECK COMPLETED ON ARRIVAL W/ EZRA Cabrera VOICES NO C/O. NO DISTRESS NOTED.
--- NOTE | 2021-01-24 12:15 | PC.NURSE ---
Cardiopulmonary Rehab Services flyer was given to patient in cardiac admissions folder.
--- NOTE | 2021-01-24 12:20 | PC.NURSE ---
Patient returned to room following cardiac cath. Report received from EZRA Gonzales.
[2021-01-24] MEDS: SODIUM CHLORIDE 0.9% IV 1,000 ML 125 ML IV CONT (12:36)
[2021-01-24] MEDS: ROSUVASTATIN 2.5 MG TABLET PO (16:19)
[2021-01-24 16:53] LABS: Activated Clotting Time 153 SEC (74-137)
[2021-01-24] MEDS: HEPARIN SOD/D5W 100 UNITS/ML 25,000 UNITS/250 ML BAG 8 UNITS IV CONT (16:58)
--- NOTE | 2021-01-24 17:14 | PM.IMPN ---
Progress Note: A&P Assessment and Plan (1) Non-ST elevated myocardial infarction (non-STEMI): Code(s): I21.4 - Non-ST elevation (NSTEMI) myocardial infarction Status: Acute (2) Hypertension: Code(s): I10 - Essential (primary) hypertension Status: Acute (3) Hyperlipidemia: Code(s): E78.5 - Hyperlipidemia, unspecified Status: Acute (4) CAD (coronary artery disease), [place] coronary artery: Code(s): I25.10 - Atherosclerotic heart disease of [place] coronary artery without angina pectoris Status: Acute Additional Plan The patient presented to the ED with complaints of a one day hx of mid chest heaviness. Troponin elevated to 5.6. EKG showing nonspecific ST T wave changes in high lateral leads. She was given aspirin and started on a heparin drip. She did not have and further CP. She went for a cardiac catheterization this morning that showed multivessel CAD. No intervention performed but [facility] plans to transfer for evaluation for multivessel PCI versus surgical revascularization with CABG. Blood pressure were running high on admission but improved. We continued her atenolol. She had complaints of fatigue with Lipitor but benefits outweigh risks so she was started on a low dose Crestor and will monitor. Replace mag. Awaiting a bed at [facility] [place]. Appreciate Cardiology input Subjective Date/time seen: 01/24/21 17:14 Interval history: 70yo female with HTN and HLD here for chest pain and found to have NSTEMI. Patient back from [facility]. She feels well. No CP andno CP since admission. Slept okay last night. Eating okay since the procedure. Exam Narrative: AF 97.2 136/72 75 22 94% ra Gen - NARD Chest - lungs clear anteriorly CV - RRR S1/S2 Abd - Soft, NT/ND, Positive BS Ext - No pedal edema. 2+ DP pulses. right groin dressing clean and dry Neuro - Alert and oriented. Nonfocal exam. Psych - Nml mood and affect Skin - Warm and dry Objective Data Vital Signs Vital Signs: Vital Signs - 24 hr 01/23/21 17:25 01/23/21 17:30 01/23/21 17:33 Temperature Pulse Rate 73 72 70 Respiratory Rate 14 14 17 Blood Pressure 115/89 Pulse Oximetry 99 98 100 01/23/21 17:34 01/23/21 18:30 01/23/21 18:45 Temperature Pulse Rate 70 77 74 Respiratory Rate 14 25 H 28 H Blood Pressure Pulse Oximetry 100 99 01/23/21 18:47 01/23/21 19:00 01/23/21 19:01 Temperature Pulse Rate 73 72 72 Respiratory Rate 21 H 20 16 Blood Pressure 144/84 H 145/128 H Pulse Oximetry 99 99 99 01/23/21 19:15 01/23/21 19:17 01/23/21 20:00 Temperature 98.2 F Pulse Rate 75 75 92 Respiratory Rate 21 H 22 H 16 Blood Pressure 131/102 H 110/65 Pulse Oximetry 100 100 98 01/23/21 20:40 01/23/21 22:00 01/23/21 23:12 Temperature 97.7 F Pulse Rate 80 72 74 Respiratory Rate 18 Blood Pressure 152/80 H Pulse Oximetry 99 01/24/21 00:00 01/24/21 02:00 01/24/21 04:00 Temperature 97.2 F L Pulse Rate 72 79 80 Respiratory Rate 18 18 Blood Pressure 158/8 H Pulse Oximetry 99 100 01/24/21 06:00 01/24/21 08:00 01/24/21 09:01 Temperature 98 F Pulse Rate 84 86 93 Respiratory Rate 18 Blood Pressure 131/85 Pulse Oximetry 96 01/24/21 10:40 01/24/21 10:50 01/24/21 10:59 Temperature Pulse Rate 76 76 72 Respiratory Rate 30 H 28 H 22 H Blood Pressure 134/88 127/79 126/84 Pulse Oximetry 94 90 91 01/24/21 11:15 01/24/21 11:30 01/24/21 11:45 Temperature 98.7 F Pulse Rate 71 70 68 Respiratory Rate 26 H 24 H 24 H Blood Pressure 129/80 125/74 135/82 Pulse Oximetry 90 91 90 01/24/21 12:00 01/24/21 12:30 01/24/21 13:00 Temperature 98 F 97.8 F Pulse Rate 71 78 78 Respiratory Rate 24 H 24 H 24 H Blood Pressure 133/79 144/75 H 128/62 Pulse Oximetry 90 93 95 01/24/21 14:00 01/24/21 15:00 01/24/21 16:00 Temperature 97.2 F L 97.5 F L 97.2 F L Pulse Rate 74 68 75 Respiratory Rate 20 22 H 22 H Blood Pressure 131/72 136/79 136/72 Pulse Oximetry 94 9
--- NOTE | 2021-01-24 20:07 | PC.NURSE ---
patient transferred to [facility]. [facility] just arrived to pick patient up at 2001. report was called to essie ayala by igor ayala.
--- NOTE | 2021-01-25 07:37 | PM.TDS ---
Transfer Discharge Sum: Prov Provider Date of admission: 01/23/21 18:31 Primary care physician: Huma Candelario MD Admitting clinician: Brett Merlos MD Consults: 01/24/21 Consult to Physician Routine Comment: elevated trop. Consulting Provider: Francisco Ray Reason for consultation: elevated trop Has provider been notified: Yes Attending physician on discharge: Thony Merlos Discharging clinician: Thony Merlos Anticipated date of transfer: 01/24/21 Receiving physician/facility: [facility] DS: Admitting Diagnosis Discharge Date 01/24/21 Admitting Diagnosis Chest pain DS: Discharge Diagnosis Discharge Diagnosis (1) Non-ST elevated myocardial infarction (non-STEMI): Code(s): I21.4 - Non-ST elevation (NSTEMI) myocardial infarction Status: Acute (2) Hypertension: Code(s): I10 - Essential (primary) hypertension Status: Acute (3) Hyperlipidemia: Code(s): E78.5 - Hyperlipidemia, unspecified Status: Acute (4) CAD (coronary artery disease), [place] coronary artery: Code(s): I25.10 - Atherosclerotic heart disease of [place] coronary artery without angina pectoris Status: Acute Transfer Discharge Sum: Med Medications Active and Home Medications: Home Medications atenolol 50 mg PO DAILY 01/23/21 [History Confirmed 01/23/21] duloxetine 60 mg PO DAILY 01/23/21 [History Confirmed 01/23/21] ezetimibe 10 mg PO DAILY 01/23/21 [History Confirmed 01/23/21] Transfer Discharge Sum: Hosp Hospital Course Hospital course: Queenie Arce is a 70 year old female who presented to the ED with complaints of a one day hx of chest heaviness. Troponin elevated to 5.6. EKG showing nonspecific ST T wave changes in high lateral leads. She was given aspirin and started on a heparin drip. She did not have and further CP. She went for a cardiac catheterization that showed multivessel CAD - please see report for details. No intervention performed but with plans to transfer for evaluation for multivessel PCI versus surgical revascularization with CABG. Blood pressures were running high on admission but improved. We continued her atenolol. She had complaints of fatigue with Lipitor but benefits outweigh risks so she was started on a low dose Crestor and will monitor. She was transferred to [facility] in stable condition for further evaluation and treatment. Time Spent with Patient Time attestation: Total time spent providing and/or coordinating transfer services: 34 minutes Total time spent: Greater than 30 minutes Exam Narrative: AF 97.2 136/72 75 22 94% ra Gen - NARD Chest - lungs clear anteriorly CV - RRR S1/S2 Abd - Soft, NT/ND, Positive BS Ext - No pedal edema. 2+ DP pulses. right groin dressing clean and dry Neuro - Alert and oriented. Nonfocal exam. Psych - Nml mood and affect Skin - Warm and dry DS: Data Data Completed and Pending Labs on day of discharge: Labs from last 24 hours 01/24/21 10:31 Activ Coag Time Azul 153 H
== END 2021-01-24 20:02 | disposition short-term general hospital (02) | DRG 282 ==
LOC: ANHED 17:37 → ANHIMU 19:10
PROVIDERS: Emergency Medicine; Internal Medicine Cardiovascular Disease; Physician Assistant; Admitting Provider Internal Medicine; Emergency Provider Emergency Medicine; PCP Family Medicine; Visit Provider Internal Medicine
PROC: 4A023N7 Measurement of Cardiac Sampling and Pressure, Left Heart, Percutaneous Approach (ICD-10-PCS; CPT 93452; principal; 2021-01-24 09:30)
DX: I21.4 Non-ST elevation (NSTEMI) myocardial infarction (principal); I25.10 Atherosclerotic heart disease of native coronary artery without angina pectoris; I10 Essential (primary) hypertension; E78.5 Hyperlipidemia, unspecified; M19.90 Unspecified osteoarthritis, unspecified site; Z96.643 Presence of artificial hip joint, bilateral; Z86.73 Personal history of transient ischemic attack (TIA), and cerebral infarction without residual deficits; Z98.42 Cataract extraction status, left eye; Z98.41 Cataract extraction status, right eye; Z90.49 Acquired absence of other specified parts of digestive tract
CPT/HCPCS: 36415; 71046; 80048; 80053; 80061; 83036; 83735; 84443; 84484; 85025; 85610; 85730; 87081; 87880; 93005; 93458; 99213; 99291; A9270; C1887; C1894; G0463; J0461; J1644; J2250; J3010; J3475; J7030; J7040

== ENCOUNTER 2021-03-14 12:28 | Outpatient (CLI) | payer MEDICARE, SELFPAY ==
--- NOTE | ~2021-03-14 | US_ITS ---
EXAMINATION: US venous doppler [facility] DATE: 03/14/2021 12:58 INDICATION: Lower limb pain. TECHNIQUE: Grayscale ultrasound images without and with compression and Doppler ultrasound images of the bilateral lower extremity veins were obtained. COMPARISON: None. FINDINGS: The visualized portions of right common femoral vein, profunda (deep) femoral vein, femoral vein, pop liteal vein, posterior tibial veins, peroneal veins, gastrocnemius vein and greater saphenous vein ou tflow are patent. The visualized portions of left common femoral vein, profunda femoral vein, femoral vein, popliteal v ein, posterior tibial veins, peroneal veins, gastrocnemius vein and greater saphenous vein outflow ar e patent. IMPRESSION: 1. No deep venous thrombosis in either lower limb. Reviewed, dictated and finalized at location B. 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
== END 2021-03-14 12:29 | disposition home or self-care (01) ==
LOC: ANHIMG 12:33
PROVIDERS: PCP Family Medicine; Visit Provider Physician Assistant Medical
DX: M79.605 Pain in left leg (principal)
CPT/HCPCS: 93970

== ENCOUNTER 2021-06-29 11:00 | Outpatient (RCR) | payer MEDICARE, SELFPAY ==
[2021-04-04 11:49] VITALS: PULSE 100
== END 2021-06-29 19:30 | disposition home or self-care (01) ==
LOC: ANHCPREHAB 11:00
PROVIDERS: PCP Family Medicine; Visit Provider Internal Medicine Cardiovascular Disease
DX: Z95.1 Presence of aortocoronary bypass graft (principal)
CPT/HCPCS: 93798

== ENCOUNTER 2021-10-03 09:38 | Outpatient (CLI) | payer MEDICARE, SELFPAY ==
--- NOTE | ~2021-10-03 | MR_ITS ---
EXAMINATION: MR lumbar spine wo con DATE: 10/03/2021 10:37 INDICATION: Lumbar radiculopathy TECHNIQUE: Magnetic resonance imaging (MRI) of the lumbar spine was performed without intravenous con trast. Sequences included sagittal T2-weighted FSE, sagittal T2-weighted FS FSE, sagittal T1-weighted FSE, and axial T2-weighted FSE. COMPARISON: 02/24/2018 FINDINGS: Subtle thoracolumbar levocurvature evident on the coronal localizer image. 3 mm retrolisthesis of L5 on S1 where there has been prior anterior and instrumented posterior spinal fusion with bilateral maury tical ramon and pedicle screw fixation. Associated posterior decompression with S1 laminectomy and part ial L5 laminectomy. Chronic likely physiologic mild anterior wedging at T12 and L1. Remaining vertebr al body heights are normal. T1 hyperintense hemangioma at T12. Marrow signal is otherwise unremarkabl e. No interval change in mild to moderate disc height loss at L1-L2 and L3-L4. The conus medullaris t erminates at L1. There is normal signal in the caudal spinal cord. Chronic prominent fatty atrophy of the posterior paraspinal musculature of the lumbar and lower thoracic spine. The following disc leve ls are specifically discussed: T12-L1: The disc does not extend beyond the endplate margin. There is mild bilateral facet joint oste oarthritis. There is no neural foraminal stenosis. There is no central canal stenosis. L1-L2: The disc does not extend beyond the endplate margin. There is mild bilateral facet joint osteo arthritis. There is no neural foraminal stenosis. There is no central canal stenosis. L2-L3: Disc is minimally bulging with annular fissures at the bilateral foraminal zones. There is mil d bilateral facet joint osteoarthritis. There is no neural foraminal stenosis. There is no central ca nal stenosis. L3-L4: Moderate diffuse disc bulge. There is and mild hypertrophy of the left ligamentum flavum. Ther e is mild to moderate bilateral facet joint osteoarthritis. There is mild to moderate bilateral neura l foraminal stenosis. There is mild to moderate central canal stenosis. L4-L5: Mild to moderate diffuse disc bulge. There is prominent hypertrophy of the ligamentum flavum. There is moderate left and severe right facet joint osteoarthritis. There is moderate to severe neura l foraminal stenosis. There is no central canal stenosis. L5-S1: Anterior and posterior spinal fusion with metallic magnetic field artifact obscuring the facet joints and mildly distorting the region of the neural foramina with are suggestive mild bilateral ne ural foraminal stenosis. Posterior decompression with no central canal stenosis. IMPRESSION: 1. Negligible progression of moderate lumbar spondylosis. 2. L5 and S1 laminectomies with combined L5-S1 anterior and instrumented posterior spinal fusion. Reviewed, dictated and finalized at location A. IMPRESSION: 1. Negligible progression of moderate lumbar spondylosis. 2. L5 and S1 laminectomies with combined L5-S1 anterior and instrumented java mobile developer ior spinal fusion.
--- NOTE | ~2021-10-03 | MR_ITS ---
EXAMINATION: MR cervical spine wo con DATE: 10/03/2021 10:37 INDICATION: Disorder. Left leg pain. TECHNIQUE: Magnetic resonance imaging (MRI) of the cervical spine was performed without intravenous c ontrast. Sequences included sagittal T2-weighted FSE, sagittal T2-weighted FS FSE, sagittal T1-weight ed FSE, axial MERGE and axial T2-weighted FSE. COMPARISON: None FINDINGS: Bone alignment is normal. Vertebral body heights are normal. Bone marrow signal intensity is normal . Moderate disc height loss at C3-C4, C5-C6 and C6-C7. Mild disc height loss at C2-C3. Small regions of mild increased cord signal without cord enlargement or volume loss at C5 and at C6 which do not ap pear to colocalized on the axial and sagittal images most likely related to motion artifact. Cervical soft tissues are unremarkable. The following disc levels are specifically discussed: C2-C3: The disc does not extend beyond the endplate margin. There is mild left uncovertebral joint os teoarthritis. There is mild bilateral facet joint osteoarthritis. There is no neural foraminal stenos is. There is no central canal stenosis. C3-C4: Disc is bulging. There is moderate bilateral uncovertebral joint osteoarthritis. There is mild to moderate right and moderate left facet joint osteoarthritis. There is moderate left and moderate right neural foraminal stenosis. There is mild central canal stenosis with flattening of the ventral surface of the cord. C4-C5: Disc is bulging. There is moderate bilateral uncovertebral joint osteoarthritis. There is mild right and moderate left facet joint osteoarthritis. There is moderate right and mild left neural for aminal stenosis. There is mild central canal stenosis. C5-C6: Disc is bulgingThere is moderate left and severe right uncovertebral joint osteoarthritis. The re is mild bilateral facet joint osteoarthritis. There is moderate to severe bilateral neural foramin al stenosis. There is mild central canal stenosis with flattening of the ventral surface of the cord. C6-C7: Disc is bulging. There is mild hypertrophy of the ligamentum flavum. There is moderate left an d severe right uncovertebral joint osteoarthritis. There is mild right and mild to moderate left face t joint osteoarthritis. There is moderate left and moderate to severe right neural foraminal stenosis . There is mild to moderate central canal stenosis with mild flattening of the ventral surface of the cord at the level of the disc space and of the posterior surface of the cord are more cephalad due t o ligament flavum hypertrophy. C7-T1: The disc does not extend beyond the endplate margin. There is no uncovertebral joint osteoarth ritis. There is moderate right and severe left facet joint osteoarthritis. There is mild bilateral ne ural foraminal stenosis. There is no central canal stenosis. IMPRESSION: 1. Moderate to severe central canal stenosis. Reviewed, dictated and finalized at location A.
== END 2021-10-03 09:39 | disposition home or self-care (01) ==
PROVIDERS: PCP Family Medicine; Visit Provider Nurse Practitioner Gerontology
DX: R26.89 Other abnormalities of gait and mobility (principal); M47.813 Spondylosis without myelopathy or radiculopathy, cervicothoracic region; M48.03 Spinal stenosis, cervicothoracic region; Z98.1 Arthrodesis status; M47.817 Spondylosis without myelopathy or radiculopathy, lumbosacral region; M48.07 Spinal stenosis, lumbosacral region; M47.815 Spondylosis without myelopathy or radiculopathy, thoracolumbar region; M48.05 Spinal stenosis, thoracolumbar region
CPT/HCPCS: 72141; 72148

== ENCOUNTER 2022-03-28 11:50 | Inpatient (IN) | payer MEDICARE, SELFPAY ==
[2022-03-28] VITALS (7 sets, daily range): BP systolic 96–118; BP diastolic 50–69; PULSE 54–90; RESP 16–33; TEMP 37.3; O2SAT 94–98
--- NOTE | ~2022-03-28 | CT_ITS ---
EXAMINATION: CT brain wo con INDICATION: Transient alteration of awareness COMPARISON: 12/30/2017 TECHNIQUE: Standard unenhanced head CT. The dose-length product (DLP) was 605.33 mGy-cm. The mA was a djusted according to patient size. Iterative reconstruction technique was employed. FINDINGS: There is no acute intraparenchymal hemorrhage. No evidence of mass lesion. No evidence of a cute infarction. 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 There is mild periventricular and subcortical hypodensity probably related to small vessel ische sharmaine disease. There is mild prominence of the sulci and ventricles related to cerebral atrophy. Intrac ranial calcified cerebral atherosclerosis is noted. There are no extra-axial collections. There is no mass effect or midline shift. Changes in the globes are likely from ocular lens surgery. The visuali zed sinuses and mastoid air cells are well aerated. IMPRESSION: 1. Areas of prior infarction without acute intracranial abnormality. 2. Age related findings. Reviewed, dictated and finalized at location F. FORMING MACHINE OPERATOR
--- NOTE | ~2022-03-28 | XR_ITS ---
XR chest 1V portable DATE: 03/30/2022 18:45 INDICATION: Pneumonia. Cough. TECHNIQUE: Portable AP chest on 03/30/2022 at 1837 hours COMPARISON: 03/28/2022 portable AP chest 03/29/2022 portable AP chest FINDINGS: Status post sternotomy. Heart size is within normal limits. There is aortic calcification. There are bibasilar infiltrates and/atelectasis. Minimal blunting of the costophrenic angles which mi ght be due to minimal pleural effusions. No pulmonary vascular congestion or pneumothorax. There is a an IMPRESSION: Mild bibasilar infiltrate and/or atelectasis Reviewed, dictated and finalized at location A. NSED FUNERAL DIRECTOR AND EMBALMER
--- NOTE | ~2022-03-28 | XR_ITS ---
EXAMINATION: XR elbow LT min 3V DATE: 03/28/2022 12:48 INDICATION: Left elbow pain post fall TECHNIQUE: Anteroposterior, two oblique and lateral views of the left elbow were obtained. COMPARISON: None. FINDINGS: Alignment is normal. No fracture or joint effusion. Mild osteoarthritis at the left elbow. Soft tissu es are unremarkable. IMPRESSION: 1. No left elbow joint effusion or acute osseous abnormality. Reviewed, dictated and finalized at location A. MACHINE OPERATOR
--- NOTE | ~2022-03-28 | US_ITS ---
EXAMINATION: US carotid duplex BI DATE: 03/28/2022 23:01 INDICATION: Syncope. TECHNIQUE: Grayscale, color Doppler, and pulsed Doppler images of the cervical carotid arteries were obtained. The degree of vessel stenosis is placed in one of the following categories: normal, <50%, 5 0-69%, >=70% but less than near-occlusion, near-occlusion, or total occlusion. Note that percent sten osis relative to normal distal artery lumen diameter is indirectly measured from velocity measurement s as described by Erick, et al. Radiology 2003; 229:340-346. COMPARISON: Ultrasound 12/30/2017 FINDINGS: RIGHT: The right common carotid artery (CCA) peak systolic velocity (PSV) is 97 cm/s. The right internal car otid artery (ICA) PSV is 130 cm/s. The right ICA end-diastolic velocity (EDV) is 44 cm/s. The right I CA/CCA PSV ratio is 1.3. Grayscale and color Doppler images yield an estimate of <50% diameter reduct ion from plaque in the ICA. There is antegrade flow in the right vertebral artery. LEFT: The left CCA PSV is 99 cm/s. The left ICA PSV is 127 cm/s. The left ICA EDV is 34 cm/s. The left ICA/ CCA PSV ratio is 1.3. Grayscale and color Doppler images yield an estimate of <50% diameter reduction from plaque in the ICA. There is antegrade flow in the left vertebral artery. IMPRESSION: 1. <50% stenosis in the right internal carotid artery. 2. <50% stenosis in the left internal carotid artery. Reviewed, dictated and finalized at location A. ING PROGRAM COORDINATOR
--- NOTE | ~2022-03-28 | XR_ITS ---
Left Shoulder Technique: AP and scapular Y views were obtained. Clinical History: Status post fall Findings: There is a traumatic, mildly displaced oblique/spiral fracture of the proximal half of the humeral shaft, extending just towards the radial tuberosity. The glenohumeral and acromioclavicular j oint spaces are preserved. Soft tissues are unremarkable. Impression: Traumatic, mildly displaced oblique/spiral fracture of the proximal humeral shaft, as detailed above. Reviewed, dictated and finalized at location M. TER CONSTRUCTION Impression: Traumatic, mildly displaced oblique/spiral fracture of the proximal humeral sha ft, as detailed above.
--- NOTE | ~2022-03-28 | XR_ITS ---
EXAMINATION: XR chest 1V portable INDICATION: Cough TECHNIQUE: Portable AP chest at 1401 hours COMPARISON: 01/23/2021 FINDINGS: There are minimal airspace opacities of the left lung base. There is a small left pleural e ffusion. No pneumothorax is identified. Median sternotomy wires and mediastinal surgical clips are se en, likely from prior coronary artery bypass grafting. There is a spiral fracture of the left proxima l humeral shaft. IMPRESSION: 1. Small left pleural effusion with minimal left basilar airspace opacities, atelectasis versus pneum onia. Reviewed, dictated and finalized at location F. TICS SYSTEMS ENGINEER IMPRESSION: 1. Small left pleural effusion with minimal left basilar airspace opacities, at electasis versus pneumonia.
--- NOTE | ~2022-03-28 | XR_ITS ---
EXAMINATION: XR chest 1V portable DATE: 03/29/2022 06:32 INDICATION: Pneumonia. TECHNIQUE: A single frontal view of the chest was obtained. COMPARISON: Chest single view 03/28/2022, chest CT 03/08/2010 FINDINGS: The lung volumes are small. There are airspace opacities at the lung bases. No pleural effu mikhail or pneumothorax. The heart size is normal. Median sternotomy wires and mediastinal surgical clip s are seen, likely from prior coronary artery bypass grafting. There is a comminuted fracture of left humerus. IMPRESSION: 1. Stable small lung volumes with airspace opacities at the lung bases, consistent with atelectasis o r less likely pneumonia. 2. Comminuted fracture of left humerus again seen. Reviewed, dictated and finalized at location A. GRAPH OPERATOR IMPRESSION: 1. Stable small lung volumes with airspace opacities at the lung bases, consist ent with atelectasis or less likely pneumonia. 2. Comminuted fracture of left humerus again seen.
--- NOTE | ~2022-03-28 | XR_ITS ---
Left wrist Technique: PA, oblique, lateral, and ulnar deviation views were obtained. Clinical History: Pain Findings: No acute fracture or dislocation is seen. Osseous alignment is anatomic. Joint spaces are p reserved. Soft tissues are unremarkable. Impression: Unremarkable left wrist radiographs. Reviewed, dictated and finalized at location . ITE INSPECTOR Impression: Unremarkable left wrist radiographs.
[2022-03-28] MEDS: SODIUM CHLORIDE 0.9% IV 1,000 ML 999 ML IV CONT (11:55)
--- NOTE | 2022-03-28 12:15 | ECG_ITS ---
Measurements Intervals [place] Rate: 70 P: 16 WV: 146 QRS: 37 QRSD: 81 T: 82 QT: 391 QTc: 424 Interpretive Statements SINUS RHYTHM NONSPECIFIC ST & T-WAVE ABNORMALITY NO PREVIOUS ECG AVAILABLE FOR COMPARISON Electronically Signed On 03-28-2022 18:01:17 COMMUNITY SERVICE OFFICER COORDINATOR by Rosa Quinn M.D.
--- NOTE | 2022-03-28 12:19 | ED.FALL ---
HPI - Fall General Chief Complaint: Fall Stated Complaint: fall Time Seen by Provider: 03/28/22 12:04 History of Present Illness HPI Narrative: Pt presents with left shoulder and elbow pain after fall. Pt thinks she passed out briefly because she felt lightheaded and then fell. Pt denies NEWMAN or CP. Pt has extensive medical history including stent placement. Pt also says she has vitiligo and is always pale. Pt says her BP runs low but not as low as it is now. Pt restarted duloxitine yesterday after stopping for awhile not sure if related. Related Data Allergies Allergy/AdvReac Type Severity Reaction Status Date / Time carbamazepine Allergy Unknown Verified 03/28/22 13:26 codeine Allergy Unknown Verified 03/28/22 13:26 duloxetine [From Cymbalta] Allergy Unknown Verified 03/28/22 13:26 fenofibrate Allergy Unknown Verified 03/28/22 13:26 Sulfa (Sulfonamide Allergy Unknown Verified 03/28/22 13:26 Antibiotics) Review of Systems Review of Systems: All systems reviewed & are unremarkable except as noted in HPI and below Exam Const: General: no acute distress Nutritional Appearance: well nourished Orientation/consciousness: patient oriented x3 Limitations: no limitations HENMT: Head: normal to inspection Eyes: Conjunctivae: conjunctivae normal (pale) EOM: EOMs intact bilaterally Neck: Neck: normal visual inspection Chest: Chest palpation & inspection: normal inspection of the chest Resp: Effort & Inspection: normal respiratory effort Auscultation: clear to auscultation bilaterally Cardio: Rate: regular rate Rhythm: regular rhythm GI: Auscultation: normal bowel sounds Skin: General skin exam: pallor Rashes: no rashes Wounds: no wounds Neuro: General: patient oriented x3, moves all extremities, no meningeal signs, no focal motor deficits and CN's II-XI intact bilaterally Speech: normal speech Extrem: Other: tender left shoulder and left elbow and wrist without obvious deformity Psych: Mental Status: mental status grossly normal Affect: normal affect Attitude: cooperative Course Course Emergency Course: pt has elevated wbc ct of 25k, possible pneumonia on cxr. pt also had syncopalepisode and was initially hypotensive which responded well to fluids. will give abx for pneumonia and admit. suha accepts for admission. dr jones notified will see in am. Vital Signs Vital signs: Vital Signs Pulse Rate 54 L 03/28/22 11:55 Respiratory Rate 16 03/28/22 11:55 Blood Pressure 96/50 L 03/28/22 11:55 Pulse Oximetry 95 03/28/22 11:55 Oxygen Delivery Room Air 03/28/22 11:55 Pulse Rate 80 03/28/22 18:00 Respiratory Rate 16 03/28/22 18:00 Blood Pressure 100/50 L 03/28/22 18:00 Pulse Oximetry 95 03/28/22 18:00 Oxygen Delivery Room Air 03/28/22 11:55 MDM - Fall MDM Narrative Medical decision making narrative: pt had syncope and is hypotensive, pt denies dark or bloody stools, syncope work up with labs and x rays of LUE Lab Data 03/28/22 13:13 03/28/22 13:13 Labs: Lab Results 03/28/22 03/28/22 03/28/22 Range/Units 13:13 13:13 13:13 WBC 25.1 H (4.5-10.0) K/mm3 RBC 3.86 L (4.2-5.4) M/mm3 Hgb 11.4 L (12.0-15.0) g/dL Hct 35.6 L (37.0-47.0) % MCV 92.2 (80-100) fl MCH 29.5 (26-34) pg MCHC 32.0 (32-36) g/dl RDW 12.9 (11.5-14.5) % Plt Count 320 (150-375) k/mm3 MPV 9.5 (7.4-10.4) fl Immature Gran % (Auto) 0.8 H (0-0.5) % Neut % (Auto) 90.2 H (45.5-73.1) % Lymph % (Auto) 4.4 L (18.3-44.2) % [place] % (Auto) 4.2 (2.6-8.5) % Eos % (Auto) 0.1 (0-4.4) % Baso % (Auto) 0.3 (0.2-1.2) % Lymph # (Auto) 1.11 (0.9-3.2) K/mm3 [place] # (Auto) 1.1 H (0.1-0.6) K/mm3 Eos # (Auto) 0.0 (0-0.3) K/mm3 Baso # (Auto) 0.1 (0.0-0.1) K/mm3 Abs Immat Gran (auto) 0.20 H (0.00-0.031) K/mm3 Absolute Neuts (auto) 22.7 H (1.3-6.7) K/mm3 Absolute Nucleated RBC
[2022-03-28 13:29] LABS: Basophils Absolute Auto 0.1 K/mm3 (0.0-0.1); Basophils Percent Auto 0.3 % (0.2-1.2); Eosinophils Percent Auto 0.1 % (0-4.4); Hematocrit 35.6 % (37.0-47.0); Hemoglobin 11.4 g/dL (12.0-15.0); Immature Granulocyte Percent A 0.8 % (0-0.5); Lymphocytes Absolute Auto 1.11 K/mm3 (0.9-3.2); Lymphocytes Percent Auto 4.4 % (18.3-44.2); Mean Corpuscular Hemoglobin 29.5 pg (26-34); Mean Corpuscular Volume 92.2 fl (80-100); Mean Platelet Volume 9.5 fl (7.4-10.4); Monocytes Absolute Auto 1.1 K/mm3 (0.1-0.6); Monocytes Percent Auto 4.2 % (2.6-8.5); Neutrophils Absolute Auto 22.7 K/mm3 (1.3-6.7); Neutrophils Percent Auto 90.2 % (45.5-73.1); Platelet Count Result 320 k/mm3 (150-375); Red Blood Count 3.86 M/mm3 (4.2-5.4); Red Cell Distribution Width 12.9 % (11.5-14.5); White Blood Count 25.1 K/mm3 (4.5-10.0)
[2022-03-28 13:37] LABS: Alanine Aminotransferase 37 U/L (6-35); Albumin Level 4.1 g/dL (3.5-5.1); Alkaline Phosphatase 88 U/L (38-126); Anion Gap 4 mmol/L (8-16); Aspartate Amino Transferase 34 U/L (14-36); Bilirubin,Total 0.6 mg/dL (0.2-1.3); Blood Urea Nitrogen 22 mg/dL (7-17); Calcium 9.3 mg/dL (8.4-10.2); Carbon Dioxide 29 mmol/L (22-30); Chloride 101 mmol/L (98-107); Estimated Glomerular Filt Rate > 60; Glucose 107 mg/dL (65-110); INR 1.1; Magnesium 1.7 mg/dL (1.6-2.3); Potassium 4.2 mmol/L (3.4-5.0); Prothrombin Time 13.7 Seconds (11.1-14.7); Sodium 134 mmol/L (137-145)
[2022-03-28 13:38] LABS: Partial Thromboplastin Time 25.9 SECONDS (22.3-36.8)
[2022-03-28 13:45] LABS: Troponin I < 0.012 ng/mL (0.000-0.034)
[2022-03-28 14:01] LABS: Platelet Estimate Adequate (Adequate)
[2022-03-28 14:02] LABS: Acanthocytes 1+ (NORMAL); Poikilocytosis 1+ (NORMAL); Schistocytes None Seen (NORMAL)
[2022-03-28] MEDS: MORPHINE SULFATE (*CRX) 2 MG/ML INJ IV PUSH (14:50)
[2022-03-28] MEDS: fentaNYL CITRATE INJ (*CRX) 100 MCG/2 ML VIAL 50 MCG IV PUSH (16:33)
[2022-03-28 16:39] LABS: Add Urine Microscopic? YES; Appearance Urine Clear (Clear); Bilirubin Urine Negative (Negative); Blood Urine Negative (Negative); Color Urine Yellow (Yellow); Glucose Urine UA Negative (Negative); Ketones Urine 1+ mg/dL (Negative); Leukocyte Esterase Ur Negative LEU/UL (Negative); Nitrate Urine Negative (Negative); Protein Urine Negative (Negative); Specific Grav Ur 1.025 (1.001-1.035); pH Urine 5.5 (5.0-9.0)
[2022-03-28 16:51] LABS: Lactic Acid Reflex 1.1 mmol/L (0.7-2.0)
[2022-03-28 16:54] LABS: Squamous Epithelial Cell Urine Rare /hpf (Few); WBC Urine 0-3 /hpf
[2022-03-28 16:54] LABS: CRP 0.6 mg/dL (<1.0)
[2022-03-28 17:03] LABS: Influenza A QL RT-PCR Negative (Negative); Influenza B QL RT-PCR Negative (Negative); RSV RNA, RT-PCR Negative (Negative); SARS-CoV-2 RNA PCR Negative
--- NOTE | 2022-03-28 19:25 | PC.NURSE ---
placed in room 3, on monitor,
--- NOTE | 2022-03-28 19:26 | PC.NURSE ---
oxygen applied because SPO2 86% in RA
--- NOTE | 2022-03-28 21:06 | PM.IMHP ---
H&P: HPI History of Present Illness Date/Time: 03/28/22 21:06 Chief Complaint: Fall Narrative: 71 years old female was admitted through emergency room with the complaints that she passed out for few seconds while trying to walk and injured her left shoulder. Patient denies any chest pain or sob. No headache. No abdominal pain or nausea. No fever, no chills At present she denies dizziness. Review of Systems Review of Systems: All systems reviewed & are unremarkable except as noted in HPI and below (the history and physical exam) Meds Home Medications and Allergies Allergies Allergy/AdvReac Type Severity Reaction Status Date / Time carbamazepine Allergy Unknown Verified 03/28/22 13:26 codeine Allergy Unknown Verified 03/28/22 13:26 duloxetine [From Cymbalta] Allergy Unknown Verified 03/28/22 13:26 fenofibrate Allergy Unknown Verified 03/28/22 13:26 Sulfa (Sulfonamide Allergy Unknown Verified 03/28/22 13:26 Antibiotics) Vital Signs Vital Signs - 24 hr 03/28/22 11:55 03/28/22 13:16 03/28/22 13:46 Pulse Rate 54 L 66 72 Respiratory Rate 16 33 H 27 H Blood Pressure 96/50 L 115/55 L 117/61 Pulse Oximetry 95 98 97 Oxygen Delivery Room Air 03/28/22 14:00 03/28/22 18:00 03/28/22 16:15 Pulse Rate 75 80 90 Respiratory Rate 33 H 16 16 Blood Pressure 117/69 100/50 L 105/52 L Pulse Oximetry 98 95 96 Oxygen Delivery Exam Narrative: Const:?? General: no acute distress? Nutritio nal Appearance: we ll nourished? Orie ntation/consciousn ess: patient kellen araya x3? Limitation s: no limitations HENMT:?? Head: normal to in spection Eyes:?? Conjunctivae: conj unctivae normal (p mere)? EOM: EOMs in tact bilaterally Neck:?? Neck: normal visua l inspection Chest:?? Chest palpation & inspection: normal inspection of the chest Resp:?? Effort & Inspectio n: normal respirat ory effort? Auscul tation: clear to a uscultation bilate rally Cardio:?? Rate: regular rate ? Rhythm: regular rhythm GI:?? Auscultation: norm al bowel sounds Skin:?? General skin exam: pallor? Rashes: n o rashes? Wounds: no wounds Neuro:?? General: patient o riented x3, moves all extremities, n o meningeal signs, no focal motor de ficits and CN's II -XI intact bilater ally? Speech: norm al speech Extrem:?? Other: tender left shoulder and left elbow and wrist w ithout obvious def ormity Psych:?? Mental Status: men cholo status grossly normal? Affect: n ormal affect? Atti tude: cooperative H&P: Results Labs Labs: Short CBC 03/28/22 Range/Units 13:13 WBC 25.1 H (4.5-10.0) K/mm3 Hgb 11.4 L (12.0-15.0) g/dL Hct 35.6 L (37.0-47.0) % Plt Count 320 (150-375) k/mm3 BMP 03/28/22 13:13 Sodium 134 L Potassium 4.2 Chloride 101 Carbon Dioxide 29 BUN 22 H Creatinine 0.60 L Glucose 107 Calcium 9.3 Cardiac Enzymes 03/28/22 Range/Units 13:13 Troponin I < 0.012 (0.000-0.034) ng/mL Liver Function 03/28/22 Range/Units 13:13 Tota
[2022-03-28] MEDS: levoFLOXacin 500 MG/D5W 100 ML 500 MG/100 ML BAG 100 MG IVPB (21:58)
[2022-03-29] VITALS (11 sets, daily range): BP systolic 98–148; BP diastolic 54–72; PULSE 82–107; RESP 18–28; TEMP 37–37.2; O2SAT 90–99; BMI 27.3
--- NOTE | 2022-03-29 | ECHO_ITS ---
Patient Info Name: Queenie Arce Age: 71 years : 1950 Gender: Female Ht: 63 in Wt: 130 lbs BSA: 1.63 m2 HR: 78 bpm BP: 98 / 54 mmHg Heart Rhythm: Sinus Rhythm Technical Quality: Fair Exam Date: 03/29/2022 9:23 AM Exam Location: [facility] Pulmonary Exam Room: [facility] Patient Status: Inpatient Admit Date: 03/28/2022 Staff Ordering Physician: Enzo Aguilar MD Doctor Of Audiology: Dacia Lama RDCS Attending Provider: Thony Merlos MD Referring Physician: Jeff WOODSON; Exam Type: CA echo dop color flow w con Study Info Indications - syncope Complete two-dimensional, color flow and Doppler transthoracic echocardiogram is performed with contrast to opacify the left ventricle and to improve the deliniation of the left ventricle endocardial borders. Contrast/Agitated Saline Contrast/Ag. Saline: Definity Amount: 2.00 ml Administered By: Dacia Lama [facility] Existing IV Access: Yes Summary 1. Left ventricular chamber dimension is normal. 2. Left ventricular systolic function is normal, estimated at 60-65%. 3. There is mildly increased left ventricular wall thickness. 4. The left ventricular diastolic function is normal. 5. Right ventricular chamber dimension is mildly enlarged. 6. Left atrial chamber dimension is moderately enlarged. 7. There is mild aortic valve calcification. 8. There is mild tricuspid valve regurgitation. 9. Mild pulmonary hypertension, estimated pulmonary arterial systolic pressure is 43 mmHg. 10. There is mild pulmonic regurgitation. Left Ventricle Left ventricular chamber dimension is normal. Left ventricular systolic function is normal, estimated at 60-65%. There is mildly increased left ventricular wall thickness. The left ventricular diastolic function is normal. Right Ventricle Right ventricular chamber dimension is mildly enlarged. Right ventricular systolic function is normal. Left Atria Left atrial chamber dimension is moderately enlarged. Right Atria Right atrial chamber dimension is normal. Atrial Septum Intact interatrial septum visualized by color flow imaging. Aortic Valve The aortic valve is trileaflet. There is no aortic valve stenosis. There is trace aortic valve regurgitation. There is mild aortic valve calcification. Pulmonic Valve The pulmonic valve is normal. There is no pulmonic valve stenosis. There is mild pulmonic regurgitation. Mitral Valve The mitral valve has normal leaflets. There is no mitral valve stenosis. There is trace mitral valve regurgitation. Tricuspid Valve The tricuspid valve leaflets are normal. There is no significant tricuspid valve stenosis. There is mild tricuspid valve regurgitation. Mild pulmonary hypertension, estimated pulmonary arterial systolic pressure is 43 mmHg. Pericardium/Pleural The pericardium appears normal. There is no pericardial effusion. Inferior Vena Cava Normal inferior vena cava with >50% collapse upon inspiration consistent with normal right atrial pressure, 10 mmHg. Aorta The aortic root size at the sinus of Valsalva is normal. Left Ventricular Outflow Tract Name Value Normal LVOT 2D LVOT Diameter
--- NOTE | 2022-03-29 00:12 | ADMGEN ---
This patient, Queenie Arce, was admitted to [facility] Surg Room 324-02. Patient/family oriented to hospital policies and general routines including ID bracelet, bed and alarms, visiting hours, pain management, procedures, bathroom and other care routines, personal items, smoking policy, room service/diet, and visiting hours. Information on how to activate the Rapid Response Team has been discussed. Patient/Family are encouraged to report perceived risks to care and to ask questions if they do not understand what they are told or what they should do.
[2022-03-29] MEDS: DEXTROSE 5%/0.9% SOD CHL 1,000 ML 50 ML IV CONT (00:22)
[2022-03-29] MEDS: HEIGHT/WEIGHT - PLEASE ENTER XX (01:17)
[2022-03-29 06:34] LABS: Basophils Percent Auto 0.2 % (0.2-1.2); Eosinophils Absolute Auto 0.1 K/mm3 (0-0.3); Eosinophils Percent Auto 0.5 % (0-4.4); Hematocrit 29.4 % (37.0-47.0); Hemoglobin 9.2 g/dL (12.0-15.0); Immature Granulocyte Absolute 0.04 K/mm3 (0.00-0.031); Immature Granulocyte Percent A 0.4 % (0-0.5); Lymphocytes Absolute Auto 0.98 K/mm3 (0.9-3.2); Lymphocytes Percent Auto 10.6 % (18.3-44.2); Mean Corpuscular HGB Conc 31.3 g/dl (32-36); Mean Corpuscular Hemoglobin 28.8 pg (26-34); Mean Corpuscular Volume 92.2 fl (80-100); Mean Platelet Volume 9.4 fl (7.4-10.4); Monocytes Absolute Auto 0.9 K/mm3 (0.1-0.6); Monocytes Percent Auto 9.4 % (2.6-8.5); Neutrophils Absolute Auto 7.3 K/mm3 (1.3-6.7); Neutrophils Percent Auto 78.9 % (45.5-73.1); Platelet Count Result 258 k/mm3 (150-375); Red Blood Count 3.19 M/mm3 (4.2-5.4); Red Cell Distribution Width 12.9 % (11.5-14.5); White Blood Count 9.3 K/mm3 (4.5-10.0)
[2022-03-29 06:47] LABS: INR 1.1
--- NOTE | 2022-03-29 06:48 | ECG_ITS ---
Measurements Intervals [place] Rate: 86 P: 12 WA: 143 QRS: 9 QRSD: 76 T: 93 QT: 363 QTc: 435 Interpretive Statements SINUS RHYTHM NONSPECIFIC ST & T-WAVE ABNORMALITY ABNORMAL ECG COMPARED TO ECG 03/28/2022 13:42:28 NO SIGNIFICANT CHANGES Electronically Signed On 03-29-2022 7:15:51 PODIATRY ASSISTANT by Francisco Ray M.D.
[2022-03-29 07:03] LABS: Alanine Aminotransferase 84 U/L (6-35); Albumin Level 3.7 g/dL (3.5-5.1); Alkaline Phosphatase 115 U/L (38-126); Anion Gap 6 mmol/L (8-16); Aspartate Amino Transferase 76 U/L (14-36); Bilirubin,Total 0.8 mg/dL (0.2-1.3); Blood Urea Nitrogen 26 mg/dL (7-17); Calcium 8.3 mg/dL (8.4-10.2); Carbon Dioxide 29 mmol/L (22-30); Chloride 101 mmol/L (98-107); Estimated Glomerular Filt Rate > 60; Glucose 118 mg/dL (65-110); Potassium 3.5 mmol/L (3.4-5.0); Sodium 136 mmol/L (137-145)
[2022-03-29 07:29] LABS: Troponin I 0.058 ng/mL (0.000-0.034)
[2022-03-29 07:37] LABS: NT Pro B Type Natriuretic Pept 231 pg/mL (5-100)
[2022-03-29] MEDS: PERFLUTREN LIPID MICROSPHERES 1.5 ML VIAL DILUTED TO 10 ML TOTAL VOLUME IV PUSH (09:50)
--- NOTE | 2022-03-29 11:28 | ECG_ITS ---
Measurements Intervals [place] Rate: 92 P: 1 LA: 114 QRS: 4 QRSD: 76 T: 39 QT: 338 QTc: 419 Interpretive Statements SINUS RHYTHM WITH SHORT LA INTERVAL NONSPECIFIC ST & T-WAVE ABNORMALITY ABNORMAL ECG COMPARED TO ECG 03/29/2022 07:12:34 NO SIGNIFICANT CHANGES Electronically Signed On 03-29-2022 13:43:03 STEM LEAD FORMER by Francisco Ray M.D.
--- NOTE | 2022-03-29 12:23 | PC.NURSE ---
Pt and pt's asked about pt's lab values including the most recent troponin. They strongly requested that cardiology be consulted (preferably Dr. Cuba who is pt's regular powder operator).
--- NOTE | 2022-03-29 12:47 | WPDNEURCNPN ---
Assessment and Plan Assessment and plan (1) Vitiligo: Code(s): L80 - Vitiligo Status: Acute (2) Syncopal episodes: Code(s): R55 - Syncope and collapse Status: Acute Plan 1. Mildly displaced oblique spiral fracture of the proximal shaft of left humerus with negative elbow and wrist x-rays 2 CT scan of the head with old infarcts of the left caudate nucleus left frontal lobe coronal radiata with prominence of the sulci and ventricles related to cerebral atrophy but no epidural or subdural or midline shift 3. Doppler of the carotids normal for she had a moderate to severe central canal stenosis on MRI of the cervical spine in September of this year with flattening of the ventral surface of the cord at the level of C6 and said and C3 and C4 Consult date: 03/29/22 HPI: Queenie Arce is a 71 year old female admitted to the hospital subsequent to fall when she became lightheaded and passed out but with no subsequent complain of headache or chest pain even though she has tree of his stent placement she reported her blood patient always runs low and duloxetine was started prior to the visit to the ER on initial evaluation vital signs were stable except the blood pressure of 96/50 repeat 100/50 CBC normal with hemoglobin 11.4 BMP with sodium 134 otherwise lab normal albumin 4.1 radiological investigations documented fracture of the proximal end of the left humerus PMFSH Past Medical History Medical History (Updated 03/29/22 @ 12:56 by Arnulfo Hutchison MD) Arthritis BMI 21.0-21.9, adult BMI 22.0-22.9, adult BMI 23.0-23.9, adult Cerebrovascular accident 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 Cubital tunnel syndrome on left Herpesviral infection, unspecified History of mumps Hyperlipidemia Hypertension Left carpal tunnel syndrome Surgical History Surgical History (Updated 03/29/22 @ 09:25 by Miguel Khoury) History of appendectomy History of bilateral cataract extraction History of cardiac catheterization History of carpal tunnel surgery of left wrist History of cholecystectomy History of elbow surgery Left cubital tunnel release History of lumbar surgery History of open heart surgery History of quadruple bypass History of thoracotomy History of total replacement of both hip joints Status post repair of paraesophageal diaphragmatic hernia Family History Family History (System 03/29/22 @ 09:25 by Miguel Khoury) Father , age 53 Acute myocardial infarction Family history of coronary artery disease Hypertension Sibling Macular degeneration AMD (acid maltase deficiency) Mother , age 76 Family history of elevated blood lipids Diabetes mellitus Family history of diabetes mellitus in first degree relative Patient's mother is Family history of coronary artery disease Cerebrovascular accident Sibling Diabetes mellitus Hypertension Daughter Allergies Hypertension Social History Social History (System 03/29/22 @ 09:25 by Miguel Khoury) Social History: Surrogate decision-maker: Horacio Arce, . CODE STATUS: Full code. Smoking status: Never smoker Second hand tobacco smoke exposure: No Alcohol intake: never Substance use: never Substance use type: does not use Lack of Transportation: No Lack of Food: Never True Current Housing: I Have Housing Concerned About Future Housing: No Difficulty Paying Gas/Electric Bills: No Difficulty Paying for Meds: No Currently Unemployed: No Education: High School Diploma/GED Difficulty w/ Childcare or Family Care: No Additional living arrangements comments: Lives with her in [place]. She has an adult daughter. Additional occupation/education comments: Retired from the [employer]. Gender identity (if verbalized by the patient): Female Spiritual care concerns: No Meds Home Medications and Allergies Home
--- NOTE | 2022-03-29 13:47 | PM.CNOR ---
Assessment and Plan Assessment and plan (1) Peripheral sensory neuropathy: Code(s): G62.9 - Polyneuropathy, unspecified Status: Acute (2) Fracture of proximal end of left humerus: Qualifiers: Encounter type: initial encounter Fracture type: closed Fracture morphology: other fracture Fracture alignment: displaced Qualified Code(s): S42.292A - Other displaced fracture of upper end of left humerus, initial encounter for closed fracture Code(s): S42.202A - Unspecified fracture of upper end of left humerus, initial encounter for closed fracture Status: Acute Assessment and Plan: New patient evaluation status post injury Left shoulder. The history, physical exam and radiographs reviewed with the patient. Type of fracture discussed in detail. comminuted proximal humerus fracture. Treatment options including operative and non operative treatment reviewed. Risks, benefits and alternatives of each treatment discussed in detail. The patient has declined surgical treatment. Risks of treatment decision discussed in detail. Potential problems with displacement of the fracture, loss of alignment, nonunion, malunion and dysfunction discussed in detail. The patient's questions were answered. They verbalized understanding and agreement. Conservative treatment with immobilization, ice, Elevation of hand, pain control. continue with sling immobilization. May remove sling for hygiene, to dress and for range of motion exercises of the elbow and hand. Pendulum exercises of the shoulder. PT/OT consult to help with transfers and ADLs. Okay for discharge when cleared medically. Follow-up next week an orthopedic office. History of Present Illness HPI Consult date: 03/29/22 Requesting physician: Kimberly Knapp III, DO Consult reason: fracture ( proximal humerus fracture) Chief complaint: SYNCOPE Narrative: 71-year-old woman who with syncopal episode yesterday. Fell on left side. Emergency room evaluation found to have proximal humerus fracture. Admitted for further medical workup. Complains of left shoulder pain. Swelling in the arm numbness and tingling in the hand and fingers. Some numbness present prior after carpal tunnel surgery. Patient is right-hand dominant. Review of Systems Constitutional: Constitutional: Denies fever(s) Eyes: Eyes: Denies blurry vision ENT: Reports Normal hearing present Cardiovascular: Cardiovascular: Denies chest pain and Denies dyspnea Respiratory: Respiratory: Denies dyspnea and Denies wheezing Gastrointestinal: Gastrointestinal: Denies abdominal pain Genitourinary: Genitourinary: Denies urinary urgency Musculoskeletal: Musculoskeletal: Reports as per HPI and Denies numbness Integumentary/Breasts: Skin/Breast: Denies changing lesions and Denies sores Neurologic: Reports Normal hearing present, Denies behavioral changes, Denies confusion, Denies numbness and Denies convulsions Psychiatric: Psychiatric: Denies behavioral changes, Denies confusion and Denies hallucinations Endocrine: Endocrine: Denies heat intolerance Hematologic/Lymphatic: Hematologic/Lymphatic: Denies easy bleeding Allergic/Immunologic: Allergic/Immunologic: Denies wheezing PMFSH Past Medical History Medical History Arthritis BMI 21.0-21.9, adult BMI 22.0-22.9, adult BMI 23.0-23.9, adult Cerebrovascular accident 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 Cubital tunnel syndrome on left Herpesviral infection, unspecified History of mumps Hyperlipidemia Hypertension Left carpal tunnel syndrome Surgical History Surgical History History of appendectomy History of bilateral cataract extraction History of cardiac catheterization History of carpal tunnel surgery of left wrist History of cholecystectomy History o
--- NOTE | 2022-03-29 15:23 | PM.CNCAR ---
Assessment and Plan Assessment and plan (1) Syncopal episodes: Code(s): R55 - Syncope and collapse Status: Acute Assessment and Plan: I do not think that she totally passed out. She did become lightheaded and dizzy. Certainly may be related to low blood pressure. Will check orthostatic BP. Will also check a TSH and free T4 level. Continue telemetry monitoring. Does not sound arrhythmogenic however. Hold metoprolol for now. 2D echocardiogram with Doppler will be ordered and reviewed (2) Elevated troponin: Code(s): R77.8 - Other specified abnormalities of plasma proteins Status: Acute Assessment and Plan: Unlikely from acute plaque rupture. Her EKG does not support a diagnosis of acute plaque rupture. Minimal troponin elevation will be trended until peak. Repeat troponin now. Continue aspirin 81 mg p.o. daily. Atorvastatin 80 mg daily will be started. (3) CAD (coronary artery disease), [place] coronary artery: Qualifiers: [place] vs. transplanted heart: [place] heart Associated angina: without angina Qualified Code(s): I25.10 - Atherosclerotic heart disease of [place] coronary artery without angina pectoris Code(s): I25.10 - Atherosclerotic heart disease of [place] coronary artery without angina pectoris Status: Acute Assessment and Plan: Continue aspirin, statin, p.r.n. nitroglycerin. Hold metoprolol for now. (4) Hypertension: Qualifiers: Hypertension type: unspecified Qualified Code(s): I10 - Essential (primary) hypertension Code(s): I10 - Essential (primary) hypertension Status: Acute Assessment and Plan: As detailed above. Blood pressure if anything is a bit low at this point (5) Hyperlipidemia: Code(s): E78.5 - Hyperlipidemia, unspecified Status: Acute Assessment and Plan: Will start atorvastatin 80 mg daily (6) Fracture of proximal end of left humerus: Qualifiers: Encounter type: initial encounter Fracture alignment: displaced Fracture morphology: other fracture Fracture type: closed Qualified Code(s): S42.292A - Other displaced fracture of upper end of left humerus, initial encounter for closed fracture Code(s): S42.202A - Unspecified fracture of upper end of left humerus, initial encounter for closed fracture Status: Acute History of Present Illness History of Present Illness Consult date/time: 03/29/22 15:23 Requesting physician: Linh Kenny DO Reason For Visit: SYNCOPE Narrative: Reason for consultation: Syncope Date of service 03/29/2022 Requesting provider: Dr. Kenny History: Patient is a 71-year-old female patient of Dr. Meyers who presented to the hospital yesterday following a ?syncopal episode?. Patient got up from her chair and walked around another chair and went to double check to make sure the door was closed. She was dizzy upon standing. She then fell up against the wall and then down to the floor. She does not know she tripped and fell, became unsteady. She does not think that she passed out. She remembers hitting the wall and landing on the floor. She denies any palpitations at the time. She does have a history of significant coronary disease and underwent a [address] Miller last year at [facility]. She denies any chest pain, paroxysmal nocturnal dyspnea. She has had some left hand as well as left leg edema which is not particularly new or different. She does have some baseline shortness of breath with activity which is not new or different. She denies any palpitations. She sometimes has dizziness upon standing. She has not had any previous syncopal episodes. Troponins were minimally elevated. She did fracture her arm/shoulder. Review of Systems Review of Systems: All systems reviewed & are unremarkable except as noted in HPI and below Constitutional: Constitutional: Denies body ache(s) Eyes: Eyes: Denies blurry visi
[2022-03-29 15:58] LABS: Troponin I 0.103 ng/mL (0.000-0.034)
[2022-03-29 17:51] LABS: T4 Thyroxine 7.29 ug/dL (5.53-11.0)
--- NOTE | 2022-03-29 19:22 | PM.IMPN ---
Progress Note: A&P Assessment and Plan (1) Syncope: Code(s): R55 - Syncope and collapse Status: Acute Assessment and Plan: Work up in progress, monitor closely. Neuro Consult (2) Fracture of proximal end of left humerus: Qualifiers: Encounter type: initial encounter Fracture alignment: displaced Fracture morphology: other fracture Fracture type: closed Qualified Code(s): S42.292A - Other displaced fracture of upper end of left humerus, initial encounter for closed fracture Code(s): S42.202A - Unspecified fracture of upper end of left humerus, initial encounter for closed fracture Status: Acute Assessment and Plan: Pain control and ortho consult. (3) Pneumonia: Code(s): J18.9 - Pneumonia, unspecified organism Status: Acute Assessment and Plan: Culture and IV antibiotics (4) Elevated troponin: Code(s): R77.8 - Other specified abnormalities of plasma proteins Status: Acute Assessment and Plan: Cardio eval Serial trop Subjective Date/time seen: 03/29/22 19:22 Patient is feeling better. No chest pain at present. No shortness of breath. No Abdominal pain, nausea, no vomiting mood stable. Review of Systems Review of Systems: All systems reviewed & are unremarkable except as noted in HPI and below (the history and physical exam) Exam Narrative: Const:?? General: no acute distress? Nutritio nal Appearance: we ll nourished? Orie ntation/consciousn ess: patient orien marshal x3? Limitation s: no limitations HENMT:?? Head: normal to in spection Eyes:?? Conjunctivae: conj unctivae normal (p mere)? EOM: EOMs in tact bilaterally Neck:?? Neck: normal visua l inspection Chest:?? Chest palpation & inspection: normal inspection of the chest Resp:?? Effort & Inspectio n: normal respirat ory effort? Auscul tation: clear to a uscultation bilate rally Cardio:?? Rate: regular rate ? Rhythm: regular rhythm GI:?? Auscultation: norm al bowel sounds Skin:?? General skin exam: pallor? Rashes: n o rashes? Wounds: no wounds Neuro:?? General: patient o riented x3, moves all extremities, n o meningeal signs, no focal motor de ficits and CN's II -XI intact bilater ally? Speech: norm al speech Extrem:?? Other: tender left shoulder and left elbow and wrist w ithout obvious def ormity Psych:?? Mental Status: men cholo status grossly normal? Affect: n ormal affect? Atti tude: cooperative Objective Data Vital Signs Vital Signs: Vital Signs - 24 hr 03/28/22 22:10 03/29/22 00:00 03/29/22 04:00 Temperature 37.3 C Pulse Rate 86 89 83 Respiratory Rate 18 Blood Pressure 118/63 Pulse Oximetry 94 Oxygen Delivery 03/29/22 06:00 03/29/22 09:15 03/29/22 09:15 Temperature 37.2 C Pulse Rate 86 82 Respiratory Rate 18 Blood Pressure 98/54 L Pulse Oximetry 99 Oxygen Delivery Room Air 03/29/22 14:00 03/29/22 12:00 03/29/22 16:00 Temperature 37.0 C Pulse Rate 103 H
[2022-03-29] MEDS: levoFLOXacin 500 MG/D5W 100 ML 500 MG/100 ML BAG 100 MG IVPB (21:03)
[2022-03-29] MEDS: ATORVASTATIN 40 MG TABLET 80 MG PO (22:29)
[2022-03-30] VITALS (9 sets, daily range): BP systolic 100–135; BP diastolic 49–84; PULSE 81–119; RESP 16–30; TEMP 36.1–37.2; O2SAT 90–92
[2022-03-30] MEDS: DEXTROSE 5%/0.9% SOD CHL 1,000 ML 50 ML IV CONT (06:34)
[2022-03-30 07:52] LABS: Basophils Percent Auto 0.4 % (0.2-1.2); Eosinophils Absolute Auto 0.2 K/mm3 (0-0.3); Eosinophils Percent Auto 2.6 % (0-4.4); Hematocrit 26.9 % (37.0-47.0); Hemoglobin 8.6 g/dL (12.0-15.0); Immature Granulocyte Absolute 0.03 K/mm3 (0.00-0.031); Immature Granulocyte Percent A 0.4 % (0-0.5); Lymphocytes Absolute Auto 0.98 K/mm3 (0.9-3.2); Lymphocytes Percent Auto 12.1 % (18.3-44.2); Mean Corpuscular Hemoglobin 30.1 pg (26-34); Mean Corpuscular Volume 94.1 fl (80-100); Mean Platelet Volume 9.4 fl (7.4-10.4); Monocytes Absolute Auto 0.8 K/mm3 (0.1-0.6); Monocytes Percent Auto 9.4 % (2.6-8.5); Neutrophils Absolute Auto 6.1 K/mm3 (1.3-6.7); Neutrophils Percent Auto 75.1 % (45.5-73.1); Platelet Count Result 212 k/mm3 (150-375); Red Blood Count 2.86 M/mm3 (4.2-5.4); Red Cell Distribution Width 13.2 % (11.5-14.5); White Blood Count 8.1 K/mm3 (4.5-10.0)
[2022-03-30 08:24] LABS: Alanine Aminotransferase 58 U/L (6-35); Albumin Level 3.4 g/dL (3.5-5.1); Alkaline Phosphatase 98 U/L (38-126); Anion Gap 6 mmol/L (8-16); Aspartate Amino Transferase 42 U/L (14-36); Bilirubin,Total 0.8 mg/dL (0.2-1.3); Blood Urea Nitrogen 16 mg/dL (7-17); Calcium 8.3 mg/dL (8.4-10.2); Carbon Dioxide 28 mmol/L (22-30); Chloride 101 mmol/L (98-107); Estimated CRCL calculation 82 ml/min; Estimated Glomerular Filt Rate > 60; Glucose 125 mg/dL (65-110); Potassium 3.2 mmol/L (3.4-5.0); Sodium 135 mmol/L (137-145)
[2022-03-30] MEDS: ENOXAPARIN 40 MG/0.4 ML SYRINGE SUB-Q (10:06)
[2022-03-30] MEDS: ASPIRIN 81 MG ENTERIC TABLET PO (10:06)
--- NOTE | 2022-03-30 12:01 | PM.IMPN ---
Progress Note: A&P Assessment and Plan (1) Syncope: Code(s): R55 - Syncope and collapse Status: Acute Assessment and Plan: Patient had a fall, after feeling dizzy and lightheaded. This is likely secondary to transient relative hypotension. It is unclear if she had any loss of consciousness. (2) Fracture of proximal end of left humerus: Qualifiers: Encounter type: initial encounter Fracture alignment: displaced Fracture morphology: other fracture Fracture type: closed Qualified Code(s): S42.292A - Other displaced fracture of upper end of left humerus, initial encounter for closed fracture Code(s): S42.202A - Unspecified fracture of upper end of left humerus, initial encounter for closed fracture Status: Acute Assessment and Plan: Continue pain management follow up Ortho recommendations. (3) Pneumonia: Code(s): J18.9 - Pneumonia, unspecified organism Status: Acute Assessment and Plan: Continue IV antibiotics. Blood cultures have been sent and are unrevealing at the time of my evaluation. (4) Elevated troponin: Code(s): R77.8 - Other specified abnormalities of plasma proteins Status: Acute Assessment and Plan: Patient has extensive coronary atherosclerosis and was evaluated by Cardiology out of concern for her cardiac history. Beta-blockers were appropriately held on admission. No evidence of arrhythmia on telemetry strips. No further recommendation from cardiac point of view. Cardiology will continue to follow and we appreciate their recommendations. Time Spent With Patient Time with patient: 15 - 25 minutes Subjective Date/time seen: 03/30/22 12:01 Interval history: Narrative this is a 71-year-old lady with a past medical history including but not limited to Coronary artery disease and coronary bypass grafting last year at [facility]. Patient had been doing very well the cardiac point of view. She had a fall sustaining a fracture of her humerus at home. She was dizzy/lightheaded and then fell it does not sound like she had a true steven syncopal episode. Beta-blockers have been discontinued of concern for relative hypotension. Patient was seen and examined at the bedside. She denies any complaints. Left arm in sling. She was in the company of her . Review of Systems Review of Systems: All systems reviewed & are unremarkable except as noted in HPI and below (the history and physical exam) Constitutional: Constitutional: Reports as per HPI and Reports no additional constitutional complaints Eyes: Eyes: Reports as per HPI and Denies blurry vision ENT: Reports system reviewed and no additional complaints, except as documented, Denies epistaxis and Denies nasal congestion Cardiovascular: Cardiovascular: Reports as per HPI, Denies chest pain, Denies leg edema, Denies lightheadedness and Denies palpitations Respiratory: Respiratory: Reports as per HPI, Reports no additional respiratory complaints, Denies cough, Denies dyspnea and Denies wheezing Gastrointestinal: Gastrointestinal: Reports as per HPI, Denies diarrhea, Denies nausea and Denies vomiting Genitourinary: Genitourinary: Reports no additional female genitourinary complaints and Reports as per HPI Musculoskeletal: Musculoskeletal: Reports no additional musculoskeletal complaints and Reports as per HPI Integumentary/Breasts: Skin/Breast: Reports system reviewed and no additional complaints, except as docu and Reports as per HPI Neurologic: Reports system reviewed and no additional complaints, except as documented and Reports as per HPI Psychiatric: Psychiatric: Reports no additional psychiatric complaints and Reports as per HPI Exam Narrative: Const:?? General: no acute distress? Nutritio nal Appearance: we ll nourished? Orie ntation/consciousn
--- NOTE | 2022-03-30 17:34 | PM.PNCARD ---
Progress Note: A&P Assessment and Plan (1) History of falling: Code(s): Z91.81 - History of falling Status: Acute (2) S/P CABG (coronary artery bypass graft): Code(s): Z95.1 - Presence of aortocoronary bypass graft Status: Acute Plan this is a 71-year-old woman with coronary disease status post surgical revascularization recently at [facility] last year. She has been doing well without any specific cardiac problems recently. She had a fall with a fracture of her humerus bringing her in the hospital. She was lightheaded at the time of the fall. It is postulated she might have been hypotensive. Accordingly her beta-andrew has been discontinued. Echocardiogram demonstrates good left ventricular systolic function and that she really does not have any other is ischemic problems that would mandate continuing the beta-andrew at this time. Will follow with you while she is in the hospital this long as there is no further difficulty with hypotension or arrhythmias at this point there are no other additional cardiac recommendations. Rajiv Ferrara MD [facility] Subjective Date/time seen: date of service:03/30/22 17:34 Interval history: Follow-up visit in this 71-year-old woman with: Coronary artery disease and coronary bypass grafting last year at [facility]. Patient had been doing very well the cardiac point of view. She had a fall sustaining a fracture of her humerus at home. She was lightheaded and then fell it does not sound like she had a true steven syncopal episode. Beta-blockers have been discontinued because of relative hypotension. Exam Const: General: comfortable and no acute distress Other: Pleasant elderly lady enjoying her dinner she has the fractured arm in a sling HENMT: Mouth: Yes moist mucous membranes Eyes: Sclera: sclerae normal Neck: Neck: supple and no JVD Resp: Effort & Inspection: normal respiratory effort Auscultation: clear to auscultation bilaterally Cardio: Rate: regular rate Rhythm: regular rhythm GI: GI Palp: Yes Soft to palpation Auscultation: normal bowel sounds Skin: General skin exam: normal color Neuro: Other: normal cognition, Extrem: Other: no edema, good perfusion Objective Data Vital Signs Vital Signs: Vital Signs - 24 hr 03/29/22 19:06 03/29/22 19:08 03/29/22 20:00 Temperature 37.0 C Pulse Rate 107 H Respiratory Rate 18 Blood Pressure 105/72 112/66 148/63 H Pulse Oximetry 90 Oxygen Delivery 03/30/22 02:21 03/29/22 20:00 03/30/22 00:00 Temperature 36.7 C Pulse Rate 106 H 99 98 Respiratory Rate 20 Blood Pressure 135/75 Pulse Oximetry 90 Oxygen Delivery 03/30/22 04:00 03/29/22 20:00 03/30/22 06:00 Temperature 36.1 C L Pulse Rate 93 93 104 H Respiratory Rate 20 16 Blood Pressure 101/49 L Pulse Oximetry 90 90 Oxygen Delivery Room Air 03/30/22 09:24 03/30/22 08:00 Temperature Pulse Rate Respiratory Rate Blood Pressure Pulse Oximetry Oxygen Delivery Room Air Room Air Intake/Output Intake/Output: Intake & Output 03/27/22 03/28/22 03/29/22 03/30/22 23:59 23:59 23:59 23:59 Intake Total 1050 2960 490 Output Total 350 Balance 1050 2960 140 Meds/Results Medications: Active Medications Generic Name Dose Route Start Last Admin Trade Name Freq PRN Reason Stop Dose Admin Aspirin 81 mg 03/30/22 09:00 03/30/22 10:06 Aspirin 81 Mg Enteric Tablet PO 81 mg QAM EVE Administration Atorvastatin Calcium 80 mg 03/29/22 21:30 03/29/22 22:29 Atorvastatin 40 Mg Tablet PO 80 mg HS EVE Administration Enoxaparin Sodium 40 mg 03/30/22 09:00 03/30/22 10:06 Enoxaparin 40 Mg/0.4 Ml Syringe SUB-Q 40 mg DAILY EVE Administration Fentanyl Citrate 25 mcg 03/28/22 23:18 Fentanyl Citrate Inj (*Crx) 100 Mcg/2 Ml Vial IV PUSH Q4H PRN Pain Rated 7-10 Levofloxacin/Dextrose 500 mg i
[2022-03-30] MEDS: ATORVASTATIN 40 MG TABLET 80 MG PO (21:41)
[2022-03-30] MEDS: levoFLOXacin 500 MG/D5W 100 ML 500 MG/100 ML BAG 100 MG IVPB (21:45)
[2022-03-31] VITALS: PULSE 105
[2022-03-31 04:00] VITALS: PULSE 97
[2022-03-31 06:00] VITALS: BP 112/54; PULSE 100; RESP 18; TEMP 36.6; O2SAT 95
--- NOTE | 2022-03-31 09:38 | PM.IMPN ---
Progress Note: A&P Assessment and Plan (1) Syncope: Code(s): R55 - Syncope and collapse Status: Acute Assessment and Plan: Patient had a fall, after feeling dizzy and lightheaded. This is likely secondary to transient relative hypotension. It is unclear if she had any loss of consciousness. patient was previously on beta-blockade at [facility]. Throughout the admission Patient did not show any today morning a during event. Per Cardiology note, echocardiogram demonstrates good left ventricular systolic function and that she really does not have any other is ischemic problems that would mandate continuing the beta-andrew at this time.?? (2) Fracture of proximal end of left humerus: Qualifiers: Encounter type: initial encounter Fracture alignment: displaced Fracture morphology: other fracture Fracture type: closed Qualified Code(s): S42.292A - Other displaced fracture of upper end of left humerus, initial encounter for closed fracture Code(s): S42.202A - Unspecified fracture of upper end of left humerus, initial encounter for closed fracture Status: Acute Assessment and Plan: Continue pain management follow up Ortho recommendations. patient will follow-up with ortho as an outpatient. (3) Pneumonia: Code(s): J18.9 - Pneumonia, unspecified organism Status: Acute Assessment and Plan: Patient was placed on IV antibiotics at the time of her admission. Blood cultures have been sent and are unrevealing at the time of my evaluation.Chest x-ray:: Mild bibasilar infiltrate and/or atelectasis?. patient can be discharged on p.o. antibiotics to complete a week course long course of levofloxacin 500 mg p.o. daily. She will follow-up with her primary care provider. (4) Elevated troponin: Code(s): R77.8 - Other specified abnormalities of plasma proteins Status: Acute Assessment and Plan: Patient has extensive coronary atherosclerosis and was evaluated by Cardiology out of concern for her cardiac history. Beta-blockers were appropriately held on admission. No evidence of arrhythmia on telemetry strips. No further recommendation from cardiac point of view. Cardiology will continue to follow and we appreciate their recommendations. Time Spent With Patient Time with patient: 15 - 25 minutes Subjective Date/time seen: 03/31/22 09:38 Interval history: Narrative this is a 71-year-old lady with a past medical history including but not limited to Coronary artery disease and coronary bypass grafting last year at [facility]. Patient had been doing very well the cardiac point of view. She had a fall sustaining a fracture of her humerus at home. She was dizzy/lightheaded and then fell it does not sound like she had a true steven syncopal episode. Beta-blockers have been discontinued of concern for relative hypotension. Patient was seen and examined at the bedside. She denies any complaints. Left arm in sling. She was in the company of her . Review of Systems Review of Systems: All systems reviewed & are unremarkable except as noted in HPI and below (the history and physical exam) Constitutional: Constitutional: Reports as per HPI and Reports no additional constitutional complaints Eyes: Eyes: Reports as per HPI and Denies blurry vision ENT: Reports system reviewed and no additional complaints, except as documented, Denies epistaxis and Denies nasal congestion Cardiovascular: Cardiovascular: Reports as per HPI, Denies chest pain, Denies leg edema, Denies lightheadedness, Denies palpitations and Denies dyspnea Respiratory: Respiratory: Reports as per HPI, Reports no additional respiratory complaints, Denies cough, Denies dyspnea and Denies wheezing Gastrointestinal: Gastrointestinal: Reports as per HPI, Denies diarrhea, Denies nausea and Denies vomiting Genitourinary: Genitourinary: Reports no additional female genitourinary complaints and Re
[2022-03-31 09:44] LABS: Basophils Percent Auto 0.2 % (0.2-1.2); Eosinophils Absolute Auto 0.2 K/mm3 (0-0.3); Eosinophils Percent Auto 1.7 % (0-4.4); Hematocrit 26.8 % (37.0-47.0); Hemoglobin 8.5 g/dL (12.0-15.0); Immature Granulocyte Absolute 0.04 K/mm3 (0.00-0.031); Immature Granulocyte Percent A 0.5 % (0-0.5); Lymphocytes Absolute Auto 0.88 K/mm3 (0.9-3.2); Lymphocytes Percent Auto 10.1 % (18.3-44.2); Mean Corpuscular HGB Conc 31.7 g/dl (32-36); Mean Corpuscular Hemoglobin 29.5 pg (26-34); Mean Corpuscular Volume 93.1 fl (80-100); Monocytes Absolute Auto 0.7 K/mm3 (0.1-0.6); Monocytes Percent Auto 7.6 % (2.6-8.5); Neutrophils Absolute Auto 6.9 K/mm3 (1.3-6.7); Neutrophils Percent Auto 79.9 % (45.5-73.1); Platelet Count Result 232 k/mm3 (150-375); Red Blood Count 2.88 M/mm3 (4.2-5.4); Red Cell Distribution Width 13.3 % (11.5-14.5); White Blood Count 8.7 K/mm3 (4.5-10.0)
[2022-03-31] MEDS: DEXTROSE 5%/0.9% SOD CHL 1,000 ML 50 ML IV CONT (09:46)
[2022-03-31] MEDS: ENOXAPARIN 40 MG/0.4 ML SYRINGE SUB-Q (09:55)
[2022-03-31] MEDS: ASPIRIN 81 MG ENTERIC TABLET PO (09:55)
[2022-03-31] MEDS: ACETAMINOPHEN 325 MG TABLET 650 MG PO (10:00)
[2022-03-31 10:03] LABS: Alanine Aminotransferase 48 U/L (6-35); Albumin Level 3.5 g/dL (3.5-5.1); Alkaline Phosphatase 92 U/L (38-126); Anion Gap 5 mmol/L (8-16); Aspartate Amino Transferase 41 U/L (14-36); Blood Urea Nitrogen 10 mg/dL (7-17); Calcium 8.6 mg/dL (8.4-10.2); Carbon Dioxide 29 mmol/L (22-30); Chloride 103 mmol/L (98-107); Estimated CRCL calculation 82 ml/min; Estimated Glomerular Filt Rate > 60; Glucose 120 mg/dL (65-110); Potassium 3.3 mmol/L (3.4-5.0); Sodium 137 mmol/L (137-145)
--- NOTE | 2022-03-31 10:26 | PM.DS ---
DS: Admitting Diagnosis Discharge Date 03/31/2022 Admitting Diagnosis Syncopal episode (1) Syncope: ?(2) Fracture of proximal end of left humerus: (3) Pneumonia: DS: Discharge Diagnosis Discharge Diagnosis Plan Syncopal episode DS: Summary Hospital Course Reason for hospitalization: Syncopal episode Hospital Course: Please refer to admission H& P. Briefly,71 years old female was admitted through emergency room with the complaints that she passed out for few seconds while trying to walk and injured her left shoulder. Patient denies any chest pain or sob. No headache. No abdominal pain or nausea. No fever, no chills At present she denies dizziness. 1) Syncope: ?Code(s): R55 - Syncope and collapse ?Status:?Acute ?Assessment and Plan: Patient had a fall, after feeling dizzy and lightheaded.? This is likely secondary to transient relative hypotension.? It is unclear if she had any loss of consciousness. patient was [facility] on [facility]ade [facility].? Throughout the admission Patient did not show any today morning a during event.? Per Cardiology? note, echocardiogram demonstrates good left ventricular systolic function and that she really does not have any other is ischemic problems that would mandate continuing the beta-andrew at this time.?? (2) Fracture of proximal end of left humerus: ?Qualifiers: ?Encounter type:?initial encounter??Fracture alignment:?displaced??Fracture morphology:?other fracture??Fracture type:?closed? Qualified Code(s):?S42.292A - Other displaced fracture of upper end of left humerus, initial encounter for closed fracture ?Code(s): S42.202A - Unspecified fracture of upper end of left humerus, initial encounter for closed fracture ?Status:?Acute ?Assessment and Plan: Continue pain management follow up Ortho recommendations. patient will follow-up with ortho as an outpatient. (3) Pneumonia: ?Code(s): J18.9 - Pneumonia, unspecified organism ?Status:?Acute ?Assessment and Plan: ? Patient was placed on IV antibiotics? at the time of her admission.? Blood cultures have been sent and are unrevealing at the time of my evaluation.Chest x-ray:: Mild bibasilar infiltrate and/or atelectasis?.? patient can be discharged on p.o. antibiotics to complete a week course long course of levofloxacin 500 mg p.o. daily.? She will follow-up with her primary care provider. (4) Elevated troponin: ?Code(s): R77.8 - Other specified abnormalities of plasma proteins ?Status:?Acute ?Assessment and Plan: Patient has extensive coronary atherosclerosis and was evaluated by Cardiology out of concern for her cardiac history.? Beta-blockers were appropriately held on admission.? No evidence of arrhythmia on telemetry strips.? No further recommendation from cardiac point of view.? Cardiology will continue to follow and we appreciate their recommendations. Time Spent With Patient Time with patient: 15 - 25 minute Time Spent with Patient Time attestation: Total time spent providing and/or coordinating discharge services: DS: Data Data Completed and Pending Labs on day of discharge: Labs from last 24 hours 03/31/22 03/31/22 08:45 08:45 WBC 8.7 RBC 2.88 L Hgb 8.5 L Hct 26.8 L MCV 93.1 MCH 29.5 MCHC 31.7 L RDW 13.3 Plt Count 232 MPV 10.0 Immature Gran % (Auto) 0.5 Neut % (Auto) 79.9 H Lymph % (Auto) 10.1 L [place] % (Auto) 7.6 Eos % (Auto) 1.7 Baso % (Auto) 0.2 Lymph # (Auto) 0.88 L [place] # (Auto) 0.7 H Eos # (Auto) 0.2 Baso # (Auto) 0.0 Abs Immat Gran (auto) 0.04 H Absolute Neuts (auto) 6.9 H Absolute Nucleated RBC 0.0 Nucleated RBC % 0.0 Sodium 137 Potassium 3.3 L Chloride 103 Carbon Dioxide 29 Anion Gap 5 L BUN 10 D Creatinine 0.50 L Estim Creat Clear Calc 82 Estimated GFR > 60 Glucose 120 H Calcium 8.6 Total Bilirubin 1.0 AST 41 H ALT 48 H Alkaline Phosphatase 92 Total
== END 2022-03-31 12:51 | disposition home health service (06) | DRG 562 ==
LOC: ANHED 17:48 → ANH3MEDSUR 03-29 11:47
PROVIDERS: Internal Medicine; Internal Medicine Cardiovascular Disease; Student in an Organized Health Care Education/Training Program; Admitting Provider Internal Medicine; Emergency Provider Emergency Medicine; PCP Family Medicine; Visit Provider Internal Medicine
DX: S42.332A Displaced oblique fracture of shaft of humerus, left arm, initial encounter for closed fracture (principal); J18.9 Pneumonia, unspecified organism; L80 Vitiligo; I25.10 Atherosclerotic heart disease of native coronary artery without angina pectoris; I10 Essential (primary) hypertension; E78.5 Hyperlipidemia, unspecified; R77.8 Other specified abnormalities of plasma proteins; I95.9 Hypotension, unspecified; Z88.5 Allergy status to narcotic agent; Z20.822 Contact with and (suspected) exposure to COVID-19; Z88.2 Allergy status to sulfonamides; Z79.82 Long term (current) use of aspirin; Z79.899 Other long term (current) drug therapy; W19.XXXA Unspecified fall, initial encounter
CPT/HCPCS: 36415; 70450; 71045; 73030; 73080; 73110; 80053; 81001; 82550; 82553; 83605; 83735; 83880; 84436; 84443; 84484; 85025; 85610; 85730; 86140; 86850; 86900; 86901; 87040; 87637; 93005; 93880; 96361; 96374; 96375; 97116; 97161; 97165; 97530; 97535; 99285; A9270; C8929; J0131; J1650; J1956; J2270; J2543; J3010; J7030; J7042; Q9957

== ENCOUNTER 2022-11-23 12:49 | Outpatient (CLI) | payer MEDICARE, SELFPAY ==
--- NOTE | ~2022-11-23 | US_ITS ---
EXAMINATION: US abdomen complete DATE: 11/23/2022 13:58 INDICATION: R10.12 - Left upper quadrant pain TECHNIQUE: Multiple grayscale and Doppler ultrasound images of the abdomen were obtained. COMPARISON: None available. FINDINGS: Obscured by bowel gas. The liver is normal with normal echogenicity and echotexture. No romulo face nodularity. Normal hepatopetal flow in the main portal vein. Status post cholecystectomy. The co mmon bile duct was not visualized. The visualized portions of the aorta and inferior vena cava are no rmal. The right kidney measures 9.5 x 4.8 x 4.4 cm. The left kidney measures 9.9 x 4.7 x 4.0 cm. The kidney s demonstrate normal parenchymal echogenicity. There is no hydronephrosis. The spleen is normal in ap pearance and measures 11 cm. IMPRESSION: Limited examination. Pancreas not visualized. Status post cholecystectomy. Common bile duct not visua lized. Otherwise normal abdominal ultrasound findings. Reviewed, dictated and finalized at location K. IMPRESSION: Limited examination. Pancreas not visualized. Status post cholecystectomy. Comm on bile duct not visualized. Otherwise normal abdominal ultrasound findings.
== END 2022-11-23 12:50 | disposition home or self-care (01) ==
PROVIDERS: PCP Family Medicine; Visit Provider Physician Assistant Medical
DX: R10.12 Left upper quadrant pain (principal); G89.29 Other chronic pain
CPT/HCPCS: 76700

== ENCOUNTER 2022-11-29 15:14 | Outpatient (CLI) | payer MEDICARE, SELFPAY ==
--- NOTE | ~2022-11-29 | CT_ITS ---
EXAMINATION: CT abdomen pelvis w con DATE: 11/29/2022 15:39 INDICATION: Chronic abdominal pain TECHNIQUE: Computed tomography (CT) of the abdomen and pelvis was performed with 100 mL Omnipaque-350 intravenous contrast. Automated exposure control and iterative reconstruction technique were employe d. The dose-length product was 552.15 mGy-cm. COMPARISON: None FINDINGS: Mild elevation the right hemidiaphragm with compressive atelectasis along the right lung base. Postop erative changes with mesh along the posterior left hemidiaphragm which may be related to prior diaphr agmatic hernia repair. Heart size is normal. Atherosclerotic coronary artery calcifications with stahl ge of prior median sternotomy and coronary artery bypass grafting. Gallbladder is nonvisualized and l ikely surgically absent. Mild intra and extrahepatic biliary ductal dilation which could be related t o associated sphincterotomy elbow. Appears to be subtle intraluminal density centrally within the dis cholo common bile duct raising possibility of choledocholithiasis. Spleen, pancreas, bilateral adrenal glands and kidneys are normal. No dilated bowel to suggest obstruction. The appendix is not visualize d. No pericecal inflammatory change to suggest acute appendicitis. Visualized portions of the bladder and uterus are unremarkable with portions obscured by dense metallic streak artifact related to bila teral total hip arthroplasties. Minimal likely physiologic free fluid in the cul-de-sac. Bilateral ad nexa are unremarkable. No pathologically enlarged abdominal or pelvic lymphadenopathy. Instrumented anterior and posterior spinal fusion at L5-S1. IMPRESSION: 1. Mild intra and extra hepatic biliary ductal dilation with subtle subtle density in the distal comm on bile duct suggesting possibility of choledocholithiasis. Correlate with liver function tests and c onsider further evaluation with MRCP. Reviewed, dictated and finalized at location A. IMPRESSION: 1. Mild intra and extra hepatic biliary ductal dilation with subtle subtle dens ity in the distal common bile duct suggesting possibility of choledocholithiasi s. Correlate with liver function tests and consider further evaluation with [facility] P.
== END 2022-11-29 15:15 | disposition home or self-care (01) ==
PROVIDERS: PCP Family Medicine; Visit Provider Physician Assistant Medical
DX: R10.12 Left upper quadrant pain (principal); G89.29 Other chronic pain; K82.8 Other specified diseases of gallbladder
CPT/HCPCS: 74177; Q9967

== ENCOUNTER 2023-08-02 07:26 | Outpatient (CLI) | payer MEDICARE, SELFPAY ==
--- NOTE | ~2023-08-02 | MR_ITS ---
EXAMINATION: MR MRCP wo/w con/w 3D wo ind DATE: 08/02/2023 09:17 INDICATION: Left upper quadrant abdominal pain. TECHNIQUE: Magnetic resonance imaging (MRI) of the abdomen was performed without and with 12 mL Multi Jaden intravenous contrast. Sequences included coronal T2-weighted FS FSE, coronal T2-weighted FSE, a xial T1-weighted LAVA, coronal FS FIESTA, axial dual-echo T1-weighted SPGR, coronal lava-FLEX, sagitt al T2-weighted FSE, axial T2-weighted FSE, and axial DWI. Thick-slab T2-weighted FSE images were obta ined for magnetic resonance cholangiopancreatography (MRCP). Maximum intensity projection 3-D reconst ructions of the volumetric data were created by the technologist. Postcontrast sequences included cor onal LAVA-flex and time course of axial T1-weighted LAVA. COMPARISON: CT abdomen and pelvis 11/29/2022 FINDINGS: ABDOMEN MRI: The liver is normal. The gallbladder is absent. The pancreas, spleen, and adrenal glands are normal. There is cortical thinning of the kidneys. There are no dilated loops of bowel. There ar e surgical changes of the left hemidiaphragm. There is a small sliding hernia. There are no pathologi debi enlarged lymph nodes. There is no free intraperitoneal fluid. ABDOMEN MRCP: The common duct is normal and measures 8 mm. No choledocholithiasis. IMPRESSION: 1. Small sliding hiatal hernia. Reviewed, dictated and finalized at location A.
== END 2023-08-02 07:27 | disposition home or self-care (01) ==
PROVIDERS: PCP Family Medicine; Visit Provider Physician Assistant Medical
DX: K44.9 Diaphragmatic hernia without obstruction or gangrene (principal); R93.2 Abnormal findings on diagnostic imaging of liver and biliary tract; G89.29 Other chronic pain
CPT/HCPCS: 74183; 76376; A9577

== ENCOUNTER 2024-04-20 12:23 | Outpatient (CLI) | payer MEDICARE, SELFPAY ==
--- NOTE | ~2024-04-20 | XR_ITS ---
XR hip RT 2V w AP pelvis Ordering provider: Cristiane Rios, MECHANIC History: . Hip pain, right . Comparison: None. FINDINGS: BONES: Fracture of the greater tuberosity of the right hip is noted.. HIP JOINT SPACES: Bilateral hip arthroplasty. SACROILIAC JOINT SPACES/LUMBAR SPINE: The sacroiliac joint spaces are normal. Mild degenerative arellano es of the visualized lower lumbar spine. Postoperative changes at the lumbosacral area. PUBIC SYMPHYSIS: Normal. SOFT TISSUES: Normal. IMPRESSION: Fracture of the right greater tuberosity.. Bilateral hip arthroplasty. Reviewed, dictated and finalized at location A. 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
--- NOTE | ~2024-04-20 | XR_ITS ---
HISTORY: Leg pain, right COMPARISON: Reference is made to a CT examination of the abdomen and pelvis dated 11/29/2022 TECHNIQUE: 2 views of the right femur were performed FINDINGS: A right total hip prosthetic is identified. A comminuted fracture is identified within the greater trochanter, surrounding the femoral stem. This is an interval change from 11/29/2022 (most recent imaging of the pelvis). Diffuse bony demineralization is noted. IMPRESSION: Comminuted fracture within the greater trochanter surrounding the proximal margin of the femoral stem, as detailed above Reviewed, dictated and finalized at location A. 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
== END 2024-04-20 12:24 | disposition home or self-care (01) ==
LOC: MICIMG 12:27
PROVIDERS: PCP Family Medicine; Visit Provider Nurse Practitioner Family
DX: S42.251A Displaced fracture of greater tuberosity of right humerus, initial encounter for closed fracture (principal); S72.111A Displaced fracture of greater trochanter of right femur, initial encounter for closed fracture; Z96.643 Presence of artificial hip joint, bilateral; X58.XXXA Exposure to other specified factors, initial encounter
CPT/HCPCS: 73502; 73552

== ENCOUNTER 2024-08-07 18:35 | Emergency (ER) | payer MEDICARE, SELFPAY ==
--- NOTE | ~2024-08-07 | XR_ITS ---
XR chest 2V Ordering provider: Dona Rdz NP History: 73 years Female with . fever . Comparison: March 30, 2022 FINDINGS: MEDIASTINUM: The cardiac silhouette is not enlarged. Postoperative changes in the mediastinum. LUNGS: No infiltrates, or pneumothorax. Blunting of the left posterior costophrenic angle which may i ndicate minimal effusion. Minimal right lung base atelectatic changes OTHER: No free air under the diaphragm. IMPRESSION: Right basilar atelectatic changes. Minimal effusion in the posterior costophrenic angle. Reviewed, dictated and finalized at location A.
[2024-08-07 18:42] VITALS: BP 149/63; PULSE 106; RESP 20; TEMP 38.8; O2SAT 100
--- NOTE | 2024-08-07 18:53 | ED_ITS ---
HPI - General Adult General Chief complaint: Unspecified Stated complaint: tremors Time Seen by Provider: 08/07/24 18:48 Source: patient, family, RN notes reviewed and old records reviewed Mode of arrival: ambulatory Limitations: no limitations History of Present Illness HPI narrative: 73 year old female accompanied by presents to express care with complaints of having tremors and felt shaky that started about 1 hours ago. said they stopped by the fire house and they checked her blood pressure and told them to come here. Upon triage patient found to have 101.9F temperature. Patient states that she has Pompe disease and she uses special ventilator type of machine at night to help her breath better. Patient reports that she takes enzymes every other week for the POMPE disease. Patient very f rail and very pale. Patient states that she has had some burning and frequency of urination for awhile with positive nitrite in her urine, 1+ blood and negative for Leukocytes, chest x-ray showing minimal effusion in posterior costophrenic angle and right basilar atelectasis. Patient reports that she she felt ok till about an hour ago. MD complaint: felt shaky and tremors 1 hour ago febrile on arrival to clinic Onset (ago): hour(s) (1 hour prior to arrival in clinic) Severity: moderate Treatments prior to arrival: none Related Data Home Medications ?Medication ?Instructions ?Recorded ?Confirmed ?Last Taken ?Type acetaminophen 325 mg tablet 325 mg PO Q6H PRN fever or pain 03/01/21 08/08/24 Unknown History (Tylenol) aspirin 81 mg tablet,delayed 81 mg PO DAILY 03/01/21 08/08/24 08/07/24 History release (Adult Aspirin Regimen) magnesium 250 mg tablet 500 mg PO DAILY 11/12/22 08/08/24 Unknown History acetaminophen 500 mg tablet 500 mg PO QAM 08/08/24 08/08/24 08/07/24 History (Acetaminophen Extra Strength) Allergies Allergy/AdvReac Type Severity Reaction Status Date / Time carbamazepine Allergy Unknown Verified 08/07/24 18:51 codeine Allergy Unknown Verified 08/07/24 18:51 fenofibrate Allergy Unknown Verified 08/07/24 18:51 Sulfa (Sulfonamide Allergy Unknown Verified 08/07/24 18:51 Antibiotics) duloxetine (From Cymbalta) AdvReac Intermediate Other Verified 08/07/24 18:51 Review of Systems Review of Systems: CONSTITUTIONAL: Unknown she had fever, chills, or sweats.reports tremors and hands shaking EYES: Denies visual changes, redness, or discharge. ENT: Denies rhinorrhea, congestion, sore throat, or otalgia. CARDIOVASCULAR: Denies chest pain, palpitations, or edema. RESPIRATORY: Denies cough or dyspnea unable to tolerate laying without head elevated. GASTROINTESTINAL: Denies abdominal pain, nausea, vomiting, or diarrhea. GENITOURINARY: reports some urinary burning and frequency for a while, no hematuria. SKIN: Denies rash or itching. MUSCULOSKELETAL: Denies back pain, joint pain, or myalgia. NEUROLOGIC: Denies headache, numbness, positive for weakness. PSYCHIATRIC: reports some history of anxiety or depression. 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 History of mumps Herpesviral infection, unspecified Left carpal tunnel syndrome Cubital tunnel syndrome on left Surgical History Surgical History (Updated 08/08/24 @ 05:16 by Alley Nguyen PA-C) History of four vessel coronary artery bypass graft (01/2021) History of knee replacement, total History of open heart surgery History of total replacement of both hip joints History of cholecystectomy History of bilateral cataract extraction Status post repair of paraesophageal diaphragmatic hernia History of cardiac catheterization History of elbow surgery Left cubital tunnel release History of carpal tunnel surgery of left wrist History of thoracotomy History of lumbar surgery History of appendectomy Family History Family History Father , age 53 Acute myocardial infarction Family history of coronary artery disease Hypertension Sibling Macular degeneration AMD (acid maltase deficiency) Mother , age 76 Family history of elevated blood lipids Diabetes mellitus Family history of diabetes mellitus in first degree relative Patient's mother is Family history of coronary artery disease Cerebrovascular accident Sibling Diabetes mellitus Hypertension Daughter Allergies Hypertension Social History Social History (Updated 08/08/24 @ 05:16 by Alley Nguyen PA-C) Social History: Surrogate decision-maker: Horacio Arce, . CODE STATUS: Full code. Smoking status: Never smoker Second hand tobacco smoke exposure: No Alcohol intake: never Substance use: never Substance use type: does not use Do You Feel Safe in your Home?: Yes Lack of Transportation: No Lack of Food: Never True Current Housing: I Have Housing Concerned About Future Housing: No Difficulty Paying Gas/Electric Bills: No Difficulty Paying for Meds: No Currently Unemployed: No Education: High School Diploma/GED Difficulty w/ Childcare or Family Care: No Living arrangements: with family Additional living arrangements comments: Lives with her in [place]. She has an adult daughter. 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 Spiritual care concerns: No Comments At time of signature, agree with nursing past medical, surgical, social and family history. There is no relevant family history pertinent to the presenting complaint Exam Narrative: GENERAL:Chronic ill -appearing, well-nourished, and in no acute distress.pale HEAD: Normocephalic, atraumatic. EYES: PERRLA and EOMI. ENT: Nares clear, no rhinorrhea or epistaxis. Mucous membranes moist.TM's normal throat pink NECK: Supple. no lymphadenopathy CHEST: decreased bases on auscultation. No acute respiratory distress.orthopnea noted with respirations 28-30 per minute, SAO2 100% on room air HEART: Regular rate and rhythm. No murmur heard. Normal peripheral pulses. ABDOMEN: Soft, nontender, nondistended, normal active bowel sounds, no abdominal pain reported. EXTREMITIES: Normal range of motion. No edema. SKIN: Warm, dry, no rash very pale. NEURO: No focal deficits. Alert and oriented x3. Course Course Emergency Course: Patient is aware of diagnosis, understands and agrees to treatment plan.? Anticipatory guidance given.? Patient agrees to follow-up as directed and is aware of reasons to seek care at the emergency department. Portions of this record may have been created with voice recognition software Level of Care: Express Care Visit Vital Signs Vital signs: Vital Signs Temperature 38.8 C H 08/07/24 18:42 Pulse Rate 106 H 08/07/24 18:42 Respiratory Rate 20 08/07/24 18:42 Blood Pressure 149/63 H 08/07/24 18:42 Pulse Oximetry 100 08/07/24 18:42 Oxygen Delivery Room Air 08/07/24 18:42 Temperature 38.8 C H 08/07/24 18:42 Pulse Rate 106 H 08/07/24 18:42 Respiratory Rate 20 08/07/24 18:42 Blood Pressure 149/63 H 08/07/24 18:42 Pulse Oximetry 100 08/07/24 18:42 Oxygen Delivery Room Air 08/07/24 18:42 Reviewed Transfer Transfered to: [facility] Transportation: Other (private car refused ambulance) Transfer rationale: febrile illness, UTI, orthopnea, history of POMPE disease, concern for sepsis Accepting physician: Dr Mcgrath Transfer comments: transfer per private car with to [facility] ED, refused ambulance transfer Medical Decision Making MDM Narrative Medical decision making narrative: 1920 Call placed to ED at [facility] with update of patient condition, VS, fever, test results and PMH reviewed with Dr Mcgrath with physician accepting patient for transfer. Differential Diagnosis Differential Diagnosis: febrile illness, urinary tract infection, respiratory infection,concern for sepsis,Pompe disease Medical Records Medical records reviewed: Yes I reviewed the external patient's medical records. Vital Signs Vital Signs: Vital Signs Temperature 38.8 C H 08/07/24 18:42 Pulse Rate 106 H 08/07/24 18:42 Respiratory Rate 20 08/07/24 18:42 Blood Pressure 149/63 H 08/07/24 18:42 Pulse Oximetry 100 08/07/24 18:42 Oxygen Delivery Room Air 08/07/24 18:42 Temperature 38.8 C H 08/07/24 18:42 Pulse Rate 106 H 08/07/24 18:42 Respiratory Rate 20 08/07/24 18:42 Blood Pressure 149/63 H 08/07/24 18:42 Pulse Oximetry 100 08/07/24 18:42 Oxygen Delivery Room Air 08/07/24 18:42 reviewed Lab Data Lab results reviewed: Yes I reviewed the patient's lab results. Lab results narrative: covid antigen negative, Influenza A negative, Influenza B negative urine dip: Glucose negative., bilirubin negative,ketone negative, protein 1+, blood1+,urobilinogen 1.0,nitrite positive, specific gravity 1.025,PH 5.5,leukocytes negative, yellow cloudy Labs: Lab Results 08/07/24 08/07/24 Range/Units 19:15 19:40 POC Urine Color Yellow POC Urine Clarity Cloudy POC Urine pH 5.5 POC Ur Specif Reading 1.025 POC Urine Protein 1+ (Negative) POC Ur Glucose (UA) Negative (Negative) POC Urine Ketones Negative (Negative) POC Urine Blood 1+ (Negative) POC Urine Nitrite Positive (Negative) POC Urine Bilirubin Negative (Negative) POC Urine Urobilinogen 1.0 POC U Leukocyte Esteras Negative (Negative) POC Influenza A Ag Negative (Negative) POC Influenza B Ag Negative (Negative) POC SARS CoV-2 Ag Negative (Negative) reviewed Imaging Data Attestation: I personally reviewed and interpreted this imaging study as follows: My impression: minimal effusion in the left posterior costophrenic angle Radiologist's impression: [facility] [address] [place] [address] XRay Report Signed Patient: Queenie Arce : 1950 MR#: [id number] Age: 73 Acct:[id number] Loc: [facility] ADM Date: 08/07/24Attending Dr: Ordering Physician: Dona Rdz APRN Date of Service: 08/07/24 Procedure(s): XR chest 2V Accession Number(s): [id number] cc: Dona Rdz APRN; Harjit Santos MD~ XR chest 2V Ordering provider: Dona Rdz NP History: 73 years Female with . fever . Comparison: March 30, 2022 FINDINGS: MEDIASTINUM: The cardiac silhouette is not enlarged. Postoperative changes in the mediastinum. LUNGS: No infiltrates, or pneumothorax. Blunting of the left posterior costophrenic angle which may indicate minimal effusion. Minimal right lung base atelectatic changes OTHER: No free air under the diaphragm. IMPRESSION: Right basilar atelectatic changes. Minimal effusion in the posterior costophrenic angle. Reviewed, dictated and finalized at location A. Please be advised this is a medical document. It is intended for [id number] communication. It is written in medical language and may contain unfamiliar abbreviations or verbiage. Medical documents are intended to carry relevant information, facts as evident, and the clinical opinion of the practitioner at the time of the encounter. This report may have been done utilizing a voice recognition system. Attempts have been made to correct errors. However, there may be uncorrected grammatical, spelling, and recognition errors present. The file time of this note does not necessarily represent the time of service. Dictated By: Homar Reese MD 08/07/24 191 Signed By: <Electronically signed by Homar Reese MD in OV> ECG Data EKG #1: Attestation: I personally reviewed and interpreted this ECG as follows: ECG completion date: 08/07/24 ECG completion time: 19:15 Prior ECG tracings: not available for review Ischemic changes: non-specific ST-T wave changes Interpretation: sinus tach rate 112bpm, IN 134ms QRS 82ms, QT 341ms EKG Interpretation: tachycardia and other (nonspecific st-t wave abnorm ality) Critical Care Time Critical Care Time Critical Care Time: No Discharge Plan Discharge Clinical Impression: Acute febrile illness, Pompe's disease Urinary tract infection Qualifiers: Urinary tract infection type: site unspecified Hematuria presence: without hematuria Qualified Code(s): N39.0 - Urinary tract infection, site not specified Patient Disposition: Acute Care Hospital Condition: Stable Patient Language: French Prescriptions: No Action aspirin [Adult Aspirin Regimen] 81 mg tablet,delayed release (DR/EC) 81 mg PO DAILY acetaminophen [Tylenol] 325 mg tablet 325 mg PO Q6H PRN (Reason: fever or pain) atorvastatin 80 mg tablet 80 mg PO DAILY Qty: 90 0RF Rx Instructions: cardio Nexviazyme 100 mg recon soln 1,089 mg IV ONCE Qty: 1 0RF Patient Comments: every other saturday Rx Instructions: infusion for Pompee's disease magnesium 250 mg tablet 500 mg PO DAILY acetaminophen [Acetaminophen Extra Strength] 500 mg tablet 500 mg PO QAM Follow-up/Referrals: Harjit Santos MD [Primary Care Provider] - Time of Disposition: 19:42 Quality [place] Coma Scale Eyes: Open Verbal: Oriented and Alert Motor: Follows Commands Ronald Coma Total Score: 15
--- NOTE | 2024-08-07 18:55 | ECG_ITS ---
Test Date: 2024-08-07 22:13:47 Measurements Intervals [place] Rate: 112 P: -11 MN: 134 QRS: -2 QRSD: 82 T: 60 QT: 341 QTc: 467 Interpretive Statements SINUS TACHYCARDIA NONSPECIFIC ST & T-WAVE ABNORMALITY ABNORMAL RHYTHM ECG No previous ECG available for comparison Electronically Signed On 08-08-2024 11:46:11 CDT by Real Rutledge M.D.
[2024-08-07 19:17] LABS: EDCOVIDSCREEN Negative (Negative); EDINFLUASCREEN Negative (Negative); EDINFLUBSCREEN Negative (Negative)
[2024-08-07 19:43] LABS: EDUAAPPEAR Cloudy; EDUABILI Negative (Negative); EDUABLOOD 1+ (Negative); EDUACOLOR1 Yellow; EDUAGLUCOSE Negative (Negative); EDUAKETONE Negative (Negative); EDUALEUKO Negative (Negative); EDUANITRATE Positive (Negative); EDUAPH 5.5; EDUAPROTEIN 1+ (Negative); EDUASPGRAVITY 1.025
--- NOTE | 2024-08-07 19:48 | PC.NURSE ---
1835 asked provider about need for tylenol for fever, no order received pt will go straight to [facility] per family car
--- OUTSIDE RECORDS SUMMARY | 2024-08-08 15:09 | XMS_ITS | Clinical Summary ---
Author Organization [facility] Address [address] [address] Phone Care Team Providers Care Plate Maker Zinc Name Role Phone Huma Candelario MD Primary Care Provider Allergies Active Allergy Reactions Criticality Noted Date Comments Codeine Shortness of Breath High Reaction: Short of breath, Sulfa Antibiotics Rash Reaction: Rash, Medications atenolol (TENORMIN) 50 MG Tablet 07/09/2017 Active atorvastatin (LIPITOR) 20 MG Tablet 07/08/2017 Active diclofenac (VOLTAREN) 75 MG Tablet Delayed Response 07/08/2017 Active DULoxetine (CYMBALTA) [address] Cole 07/17/2017 Active methylPREDNISolo ne (MEDROL DOSPACK) 4 MG Tablet Therapy Pack Use as directed. 1 Dose Pack 01/07/2019 Active Social History Tobacco Use Types Packs/Day Years Used Date Smoking Tobacco: Never Smokeless Tobacco: Never Alcohol Use Standard Drinks/Week Comments No 0 (1 standard drink = 0.6 oz pur e alcohol) Comments No Sex and Gender Information Value Date Recorded Sex Assigned at Not on file Legal Sex Female 10:13 PM CDT Gender Identity Not on file Sexual Orientation Not on file Last Filed Vital Signs Vital Sign Reading Time Taken Comments Blood Pressure 120/68 01/07/2019 2:15 PM CDT Pulse 74 01/07/2019 2:15 PM CDT Temperature 36.4 C (97.5 F) 01/07/2019 2:15 PM CDT Respiratory Rate 16 01/07/2019 2:15 PM CDT Oxygen Saturation 94% 01/07/2019 2:15 PM CDT Inhaled Oxygen Concentration - - Weight 64 kg (141 lb) 01/07/2019 2:15 PM CDT Height 160 cm (5' 3 ) 01/07/2019 2:15 PM CDT Body Mass Index 24.98 01/07/2019 2:15 PM CDT Plan of Treatment Health Maintenance Due Date Last Done Comments DEXA Bone Density 1950 Hepatitis C Virus (HCV) Screening 1950 Mammogram 1950 TdaP Immunization 1950 Colonoscopy 09/11/1996 Colorectal Cancer Screening 09/11/1996 Cologuard 09/11/2001 Immunochemical Fecal Occult Blood 09/11/2001 Zoster Immunization (1 of 2) 09/11/2001 Pneumococcal Immunization (50+ years) (2 of 2 - PCV) 12/17/2018 12/17/2017 Influenza Immunization (#1) 2023 090 11/2020, 12/14/2020, 12/10/2018, Additional history exists SARS-COV-2 Immunization ( season) 2023 01/06/2021, 05/31/2020, 05/08/2020 Respiratory Syncytial Virus (RSV) Immunization (Adult) (1 - 1-dose 75+ series) 09/11/2026 Pneumococcal Immunization Combined Discontinued 12/17/2017 Hepatitis B Immunization Aged Out No longer eligible based on patient's age to complete this topic Meningococcal Immunization (ACWY) Aged Out No longer eligible based on patient's age to complete this topic Rotavirus Immunization Aged Out No lo nger eligible based on patient's age to complete this topic Insurance MEDICARE COMMERCIAL GENERIC Care Teams Plate Maker Zinc Relationship Specialty Start Date End Date Huma Candelario MD PCP - General Family Medicine 09/04/17
--- OUTSIDE RECORDS SUMMARY | 2024-08-08 15:09 | XMS_ITS | Referral Summary ---
Author Organization [facility] [place] [address] Address [address] [place] [address] Care Team Providers Care Verify Rep Name Role Phone Harjit Santos MD Primary Care Provider [phone] Sylvester Patrick MD Unavailable Sudeep Prajapati MD Unavailable Encounters Date Type Department Care Team Description 06/22/2024 Orders Only [facility] Orthopedics and Sports Medicine [address] [place] [address] [address] [place] [address] Ammon Langford MD Nondisplaced fracture of greater trochanter of right femur, initial encounter for closed fracture (HCC) (Primary Dx) 06/19/2024 Telephone [facility] Orthopedics and Sports Medicine [address] [place] [address] [address] [place] [address] Ammon Langford MD PT orders 06/18/2024 7:47 AM CDT - 06/18/2024 11:59 PM CDT Hospital Encounter [facility] Medical [facility] Orthopedics and Sports Medicine [address] [place] [address] [address] [place] [address] Discharge Disposition: Discharge to home or self care 06/18/2024 10:15 AM CDT Office Visit [facility] Medical [facility] Orthopedics and Sports Medicine [address] [place] [address] [address] [place] [address] Ammon Langford MD Nondisplaced fracture of greater trochanter of right femur, initial encounter for closed fracture (HCC) (Primary Dx) 06/01/2024 Telephone [facility] Neuro Sleep [address] [facility] [address] 6[address] [place] [address] Riya Luo RN 05/30/2024 Telemedicine [facility] Stroke [address] [place] [address] Sudeep Prajapati MD Pompe disease ([facility]) (Primary Dx); Restrictive lung mechanics due to neuromuscular disease ([facility]) from Last 3 Months Allergies Active Allergy Reactions Criticality Noted Date Comments Codeine Shortness of breath,Nausea only,Rash High Reaction: Short of breath, Sulfa (Sulfonamide Antibiotics) Rash Medium 04/14/2022 Reaction: Rash, Reaction: Rash, Reaction: Rash, Medications cholecalciferol (VITAMIN D-3) 400 unit capsule Active cetirizine (ZyrTEC) 10 mg tabletIndicatio ns:Allergic Rhinitis Take 1 tablet (10 mg total) by mouth daily Active atorvastatin (LIPITOR) 80 mg tablet TAKE 1 TABLET(80 MG) BY MOUTH EVERY NIGHT 30 tablet 11 05/03/2023 Active escitalopram (LEXAPRO) 10 mg tablet Take 1 tablet (10 mg total) by mouth daily 04/30/2023 Active magnesium oxide 500 mg capsule Take 500 mg by mouth nightly Active cyanocobalamin, vitamin B-12, 5,000 mcg tablet, sublingual Place 5,000 mcg under the tongue every 30 (thirty) days Active aspirin 81 mg enteric coated tablet Take 1 tablet (81 mg total) by mouth daily 90 tablet 11 05/29/2023 Active acetaminophen (TYLENOL) 500 mg tablet Take 1 tablet (500 mg total) by mouth every 6 (six) hours as needed for pain Active Active Problems Problem Noted Date Diagnosed Date 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 Pompe disease 05/23/2022 Left leg pain 09/25/2021 Balance disorder 09/25/2021 S/P CABG x 4 02/03/2021 Coronary artery disease invo lving [place] heart without angina pectoris 01/24/2021 Overview (01/26/2021): Added automatically from request for surgery [id number] Hypertension 11/06/2012 Shortness of breath 11/06/2012 Hypercholesterolemia 11/06/2012 Immunizations Immunization Administration Dates Next Due Influenza, Quadrivalent, Hig h Dose, Preservative Free, Intrr 12/14/2020 Influenza, Quadrivalent, Rec ombinant, Egg Free, Preservative Free, Intramuscular 12/10/2018 Influenza, Quadrivalent, Spl it, Preservative Free, Intramuscular 12/17/2017 Influenza, Trivalent, Preservative Free, Intramu scular 01/18/2015 Influenza, Unspecified 12/14/2020 Pneumococcal Polysaccharide PPV23 12/17/2017 Social History Tobacco Use Types Packs/Day Years Used Date Smoking Tobacco: Never Tobacco Cessation:Counseling Given: Not Answered OASIS D0700: Social Isolation Answer Da te Recorded Frequency of experiencing loneliness or isolatio n Never 05/09/2022 OASIS A1250: Transportation Answer Date Recorded Lack of Transportation (Medical) No 05/09/2022 Lack of Transportation (Non-Medical) No 05/09/2022 Patient Unable or Declines to Respond No 05/09/2022 OASIS B1300: Health Literacy Answer Fabián e Recorded Frequency of needing help to read materials from doctor or pharmacy Never 05/09/2022 AUDIT-C Answer Date Recorded Q1: How often do you have a drink containing alcohol? Never 09/25/2021 Q2: How many drinks containi ng alcohol do you have on a typical day when you are drinking? Patient does not drink Q3: How often do you have si x or more drinks on one occasion? Never 09/25/2021 Comments Unknown Sex and Gender Information Value Date Recorded Sex Assigned at Not on file Legal Sex Female 12:17 AM TRICHOLOGIST Gender Identity Not on file Sexual Orientation Not on file Last Filed Vital Signs Vital Sign Reading Time Taken Comments Blood Pressure 129/76 06/18/2024 9:59 AM CDT Pulse 76 06/18/2024 9:59 AM CDT Temperature 36.7 C (98 F) 06/05/2022 8:14 AM TRICHOLOGIST Respiratory Rate 18 05/03/2022 11:29 AM TRICHOLOGIST Oxygen Saturation 98% 07/11/2023 1:04 PM CDT Inhaled Oxygen Concentration - - Weight 55.8 kg (123 lb) 06/18/2024 9:59 AM CDT Height 160 cm (5' 3 ) 06/18/2024 9:59 AM CDT Body Mass Index 21.79 06/18/2024 9:59 AM CDT Plan of Treatment Not on file Procedures Procedure Name Priority Date/Time Associated Diagnosis Comments XR HIP RIGHT 2 OR 3 VIEWS Schedule Routine, Read Routine (OP Routine) 06/18/2024 9:47 AM CDT Nondisplaced fracture of greater trochanter of right femur, initial encounter for closed fracture (HCC) from Last 3 Months Results * XR Hip Right 2 or 3 Views (06/18/2024 9:47 AM CDT) Anatomical Region Laterality Modality Lower Extremities, Hip, Pelvis Right D igital Radiography Narrative 06/18/2024 1:07 PM CDT Right hip greater trochanteric periprosthetic fracture shows signs of radiographic healing and callus formation without displacement. This appears quite stable. Ammon Langford MD IMG XR PROCEDURES Final Result from Last 3 Months Insurance [facility] MEDICARE ADVANTAGE COMMERCIAL GENERIC MEDICARE MEDICARE COMMERCIAL GENERIC [facility]F MEDICARE COMMERCIAL GENERIC Advance Directives For more information, please contact: [phone] * Full Code (Latest Code Status on File) Date Activated Date Inactivated Comments 02/03/2021 7:58 PM 02/14/2021 5:13 PM * Full Code Date Activated Date Inactivated Comments 01/25/2021 8:58 AM 02/03/2021 7:39 PM Care Teams Verify Rep Relationship Specialty Start Date End Date Harjit Santos MD PCP - General Family Medicine 03/09/21 Sylvester Patrick MD [address] [facility] [address] [place] [address] Referring Physician Neurology 06/05/22 Sudeep Prajapati MD [address] [facility] NEUROLOGY SLEEP [facility] [address] [place] [address] Consulting Physician Sleep Medicine 04/29/23
--- OUTSIDE RECORDS SUMMARY | 2024-08-08 15:09 | XMS_ITS | CONTINUITY OF CARE DOCUMENT ---
Author Name emily diaz Address Unknown Organization [facility] Address [address] [place] [address] [address] [place] [address] Phone [phone] Care Team Providers Care Boiler Shop Supervisor Name Role Phone emily diaz Unavailable Unavailable
--- OUTSIDE RECORDS SUMMARY | 2024-08-08 15:09 | XMS_ITS | Encounter Summary ---
Author Organization [facility] Address [facility] [place] [address] Care Team Providers Care Tank Worker Name Role Phone Harjit Santos MD Primary Care Provider [phone] Encounter Details Date Type Department Care Team (Late st Contact Info) Description 12/04/[address] [facility] [place] [address] Consuelo Monzon, RN Social History Tobacco Use Types Packs/Day Years Used Date Smoking Tobacco: Never Smokeless Tobacco: Never Comments Unknown Sex and Gender Information Value Date Recorded Sex Assigned at Female 06/18/2024 6:55 AM CDT Legal Sex Female 2:15 PM CDT Gender Identity Female 01/23/2023 9:45 AM CDT Sexual Orientation Not on file documented as of this encounter Plan of Treatment Upcoming Encounters Date Type Department Care Team (Late Contact Info) Description 08/12/2024 8:00 AM CDT Treatment [facility] [place] [address] Sylvester Patrick MD [address] [place] [address] [place] [id number] 08/26/2024 8:00 AM CDT Treatment [facility] [place] [address] Sylvester Patrick MD [address] [place] [address] 09/09/2024 8:00 AM CDT Treatment [facility] [place] [address] Sylvester Patrick MD [address] [place] [address] 09/23/2024 8:00 AM CDT Treatment [facility] [place] [address] Sylvester Patrick MD [address] [place] [address] 10/07/2024 8:00 AM CDT Treatment [facility] [place] [address] Sylvester Patrick MD [address] [place] [address] 10/21/2024 8:00 AM CDT Treatment [facility] [place] [address] Sylvester Patrick MD [address] [place] [address] 11/04/2024 8:00 AM CDT Treatment [facility] [place] [address] Sylvester Patrick MD [address] [place] [address] 11/18/2024 8:00 AM CDT Treatment [facility] [place] [address] Sylvester Patrick MD [address] [place] [address] 12/02/2024 8:00 AM CDT Treatment [facility] [place] [address] Sylvester Patrick MD [address] [place] [address] 12/09/2024 8:00 AM CDT Treatment [facility] [place] [address] Sylvester Patrick MD [address] [place] [address] 12/23/2024 8:00 AM CDT Treatment [facility] [place] [address] Sylvester Patrick MD [address] [place] [address] 01/06/2025 8:00 AM CDT Treatment [facility] [place] [address] Sylvester Patrick MD [address] [place] [address] 01/20/2025 8:00 AM CDT Treatment [facility] [place] [address] Sylvester Patrick MD [address] [place] [address] 02/03/2025 8:00 AM CDT Treatment [facility] [place] [address] Sylvester Patrick MD [address] [place] [address] 02/17/2025 8:00 AM SEARCH ENGINE OPTIMIZATION STRATEGIST Treatment [facility] [place] [address] Sylvester Patrick MD [address] [place] [address] 03/03/2025 8:00 AM SEARCH ENGINE OPTIMIZATION STRATEGIST Treatment [facility] [place] [address] Sylvester Patrick MD [address] [place] [address] documented as of this encounter Visit Diagnoses Not on filedocumented in this encounter Care Teams Tank Worker Relationship Specialty Start Date End Date Harjit Santos MD [address] [place] [address] PCP - General FAMILY PRACTICE 04/14/22 documented as of this encounter
--- OUTSIDE RECORDS SUMMARY | 2024-08-08 15:09 | XMS_ITS | CONTINUITY OF CARE DOCUMENT ---
Author Name emily diaz Address Unknown Organization [facility] Address [address] [place] [address] [address] [place] [address] Phone [phone] Care Team Providers Care Dinkey Operator Name Role Phone emily diaz Unavailable Unavailable
--- OUTSIDE RECORDS SUMMARY | 2024-08-08 15:09 | XMS_ITS | Clinical Summary ---
Author Organization [facility] Address [facility] [place] [address] Care Team Providers Care Windows Application Administrator Name Role Phone Harjit Santos MD Primary Care Provider [phone] Allergies Active Allergy Reactions Criticality Noted Date Comments Codeine Shortness of Breath High 04/14/2022 Sulfa Antibiotics Rash Low 04/14/2022 Medications albuterol sulfate HFA (VENTOLIN HFA) 108 (90 Base) MCG/ACT inhaler Inhale 2 puffs into the lungs every 6 (six) hours as needed for Wheezing or Shortness of breath. 18 g Active Active Problems Problem Noted Date Diagnosed Date Pompe's disease ([facility]) 11/23/2022 Encounters Date Type Department Care Team Description 07/29/2024 8:00 AM CDT Treatment [facility] [place] [address] Sylvester Patrick MD Infusion Therapy 07/29/2024 Travel 07/15/2024 8:00 AM CDT Treatment [facility] [place] [address] Sylvester Patrick MD Infusion Therapy 07/15/2024 Travel 07/01/2024 8:00 AM CDT Treatment [facility] [place] [place] [address] Sylvester Patrick MD Infusion Therapy 07/01/2024 Travel 06/17/2024 8:00 AM CDT Treatment [facility] [place] [address] Sylvester Patrick MD Infusion Therapy 06/17/2024 Travel 06/03/2024 8:00 AM MEDICAL H[facility] SALES Treatment [facility] [place] [address] Sylvester Patrick MD Infusion Therapy 06/03/2024 Travel from Last 3 Months Social History Tobacco Use Types Packs/Day Years Used Date Smoking Tobacco: Never Smokeless Tobacco: Never Tobacco Cessation:Counseling Given: Not Answered Comments Unknown Sex and Gender Information Value Date Recorded Sex Assigned at Female 06/18/2024 6:55 AM CDT Legal Sex Female 2:15 PM CDT Gender Identity Female 01/23/2023 9:45 AM CDT Sexual Orientation Not on file Last Filed Vital Signs Vital Sign Reading Time Taken Comments Blood Pressure 126/61 07/29/2024 1:45 PM CDT Pulse 70 07/29/2024 1:45 PM CDT Temperature 36.7 C (98.1 F) 07/29/2024 7:54 AM CDT Respiratory Rate 20 07/29/2024 1:45 PM CDT Oxygen Saturation 99% 07/29/2024 1:45 PM CDT Inhaled Oxygen Concentration - - Weight 56.3 kg (124 lb 3.2 oz) 07/29/2024 7:44 A M CDT Height 160 cm (5' 3 ) 07/29/2024 7:44 AM CDT Body Mass Index 22 07/29/2024 7:44 AM CDT Plan of Treatment Upcoming Encounters Date Type Department Care Team (Late st Contact Info) Description 08/12/2024 8:00 AM CDT Treatment [facility] [place] [address] Sylvester Patrick MD [address] [facility] [address] [place] [phone] 08/26/2024 8:00 AM CDT Treatment [facility] [place] [address] Sylvester Patrick MD [address] [place] [address] 09/09/2024 8:00 AM CDT Treatment [facility] [place] [address] Sylvester Patrick MD [address] [place] [address] 09/23/2024 8:00 AM CDT Treatment [facility] [place] [address] Sylvester Patrick MD [address] [place] [address] 10/07/2024 8:00 AM CDT Treatment [facility] [place] [address] Sylvester Patrick MD [address] [place] [phone] 10/21/2024 8:00 AM CDT Treatment [facility] [place] [address] Sylvester Patrick MD [address] [place] [phone] 11/04/2024 8:00 AM CDT Treatment [facility] [place] [address] Sylvester Patrick MD [address] [place] [phone] 11/18/2024 8:00 AM CDT Treatment [facility] [place] [address] Sylvester Patrick MD [address] [place] [address] 12/02/2024 8:00 AM CDT Treatment [facility] [place] [address] Sylvester Patrick MD [address] [place] [address] 12/09/2024 8:00 AM CDT Treatment [facility] [place] [place] [address] Sylvester Patrick MD [address] [place] [address] 12/23/2024 8:00 AM CDT Treatment [facility] [place] [address] Sylvester Patrick MD [address] [place] [id number] 01/06/2025 8:00 AM CDT Treatment [facility] [place] [address] Sylvester Patrick MD [address] [place] [address] 01/20/2025 8:00 AM CDT Treatment [facility] [place] [address] Sylvester Patrick MD [address] [place] [address] 02/03/2025 8:00 AM CDT Treatment [facility] [place] [address] Sylvester Patrick MD [address] [place] [address] 02/17/2025 8:00 AM MEDICAL HOSPITAL SALES Treatment [facility] [place] [address] Sylvester Patrick MD [address] [place] [address] 03/03/2025 8:00 AM MEDICAL HOSPITAL SALES Treatment [facility] [place] [address] Sylvester Patrick MD [address] [place] [address] Health Maintenance Due Date Last Done Comments Colorectal Cancer Screening Colonoscopy (10 Years) 1950 Hepatitis C 09/11/1969 DTaP, Tdap and Td Vaccines ( 1 - Tdap) 09/11/1970 Mammogram Screening 1991 Zoster Vaccines (1 of 2) 09/11/2001 Annual Medicare Wellness Visit 09/11/2016 Dexa Scan (General) 09/11/2016 Pneumococcal Vaccine: 50+ Years (2 of 2 - PCV) 12/17/2018 12/17/2017 COVID-19 Vaccine (4 - 2023-2 5 season) 2023 01/06/2021, 05/31/2020, 05/08/2020 RSV Immunization or 60+ Years (1 - 1-dose 75+ series) 09/11/2026 Meningococcal B Vaccine Aged Out No l onger eligible based on patient's age to complete this topic Meningococcal Vaccine Aged Out No jewel carol eligible based on patient's age to complete this topic RSV Immunizations Under 20 Months Aged Out No longer eligible b ased on patient's age to complete this topic Insurance MEDICARE GENERIC - COMMERCIAL Care Teams Windows Application Administrator Relationship Specialty Start Date End Date Harjit Santos MD [address] [address] PCP - General FAMILY PRACTICE 04/14/22
--- OUTSIDE RECORDS SUMMARY | 2024-08-08 15:09 | XMS_ITS | Clinical Summary ---
Author Organization [facility] Address [address] [place] [address] Care Team Providers Care Grading Clerk Name Role Phone Harjit Santos MD Primary Care Provider [phone] Source Comments [facility],non-owned Affiliates and Associated Physician Practices is amultiple site organization consisting of ambulatory clinics and hospital sitesin [place], [place], [place] and [place]. This disclosure is being madepursuant to the Care Everywhere program and may not contain all information available regarding this patient. Last updated 17.[facility] Allergies Active Allergy Reactions Criticality Noted Date Comments Codeine Nausea and/or Vomiting,Rash,Shortness of Breath High 04/14/2022 Reaction: Short of breath, Reaction: Short of breath, Sulfa Antibiotics Rash Medium 04/14/2022 Reaction: Rash, Sulfa Drugs Rash Medium 04/14/2022 Reaction: Rash, Reaction: Rash, Reaction: Rash, Medications * Be aware that medications may not be up to date on this document. Alwaysverify current medications with the patient. aspirin EC (Ecotrin) 81 MG tablet Take 1 (one) tablet by mouth once daily 1 Active atorvastatin (Lipitor) 80 MG tablet Take 1 (one) tablet by mouth at bedtime 1 Active vitamin D3 (Cholecalcifer ol) 10 MCG (400 UNIT) capsule Take 1 (one) capsule by mouth once daily Active mupirocin (Bactroban) 2 % ointment APPLY TOPICALLY IN EACH NOSTRIL TWICE DAILY 2 Active cetirizine (ZyrTEC ALLERGY) 10 MG tablet Take 1 (one) tablet by mouth once daily Active acetaminophen (TYLENOL) 500 MG tablet Take 1 (one) tablet by mouth every 4 hours as needed for Fever or Pain Maximum allowable Acetaminophen amount = 4 Grams (4000 mg) / 24 hours. Active escitalopram (Lexapro) 10 MG tablet Take 1 (one) tablet by mouth once daily Active magnesium 250 MG tablet Take 2 (two) tablets by mouth once daily Active multivitamin daily tablet Take 1 (one) tablet by mouth daily with food Active Active Problems Problem Noted Date Diagnosed Date Pompe disease 05/23/2022 Abnormality of gait due to impairment of balance 04/27/2022 FONSECA (dyspnea on exertion) 04/27/2022 Left leg weakness 04/27/2022 Family History Medical History Relation Name Comments CAD (Coronary Artery Disease) Father CVA Mother Diabetes; unknown type Mother Relation Name Status Comments Father Mother Social History Tobacco Use Types Packs/Day Years Used Date Smoking Tobacco: Never Passive Smoke Exposure: Never Smokeless Tobacco: Never Tobacco Cessation:Counseling Given: No Alcohol Use Standard Drinks/Week Comments Never 0 (1 standard drink = 0.6 oz pur e alcohol) PHQ-2 Answer Date Recorded Patient Health Questionnaire-2 Score 0 01/02/2023 Comments Unknown Sex and Gender Information Value Date Recorded Sex Assigned at Not on file Legal Sex Female 11:14 AM REVENUE RESEARCH ANALYST Gender Identity Not on file Sexual Orientation Not on file Last Filed Vital Signs Vital Sign Reading Time Taken Comments Blood Pressure 131/77 11/29/2023 12:45 PM CDT Pulse 66 11/29/2023 12:45 PM CDT Temperature 36.2 C (97.2 F) 01/16/2023 11:46 AM CDT Respiratory Rate 16 01/16/2023 11:11 AM CDT Oxygen Saturation 99% 01/16/2023 11:11 AM CDT Inhaled Oxygen Concentration - - Weight 60.3 kg (133 lb) 11/29/2023 12:45 PM CDT Height 160 cm (5' 3 ) 11/29/2023 12:45 PM CDT Body Mass Index 23.56 11/29/2023 12:45 PM CDT Plan of Treatment Upcoming Encounters Date Type Department Care Team (Late st Contact Info) Description 09/04/2024 9:20 AM CDT Office Visit [facility] [address] [place] [address] Sylvester Patrick MD [address] [place] [address] Health Maintenance Due Date Last Done Comments BONE DENSITY TESTING 1950 COLOGUARD (AGES 45-75) - COLON CA SCREENING 1950 COLON MONITORING 1950 COLONOSCOPY - COLON CA SCREENING 1950 CT COLONOGRAPHY - COLON CA SCREENING 1950 Colorectal Cancer Screening 1950 FIT - COLON CA SCREENING 1950 FLEX SIG - COLON CA SCREENING 1950 MAMMOGRAM 1950 MEDICARE AWV 12 MONTHS 1950 HEPATITIS C SCREENING 09/07/1969 DTAP/TDAP/TD VACCINES (1 - Tdap) 09/11/1970 PNEUMOCOCCAL VACCINE 50+ (1 of 1 - PCV) 09/11/2001 ZOSTER VACCINE (1 of 2) 09/11/2001 Respiratory Syncytial Virus (RSV) Vaccine Pt: or over 60 yrs (1 - Risk 60-74 years 1-dose series) 2011 COVID-19 VACCINE ( - season) 2023 DEPRESSION SCREENING 04/08/2024 08/01/2022 INFLUENZA VACCINE (Season Ended) 2024 12/14/2020, 12/10/2018, 12/17/2017, Additional history exists HEPATITIS B VACCINE Aged Out No longe r eligible based on patient's age to complete this topic HIB VACCINE Aged Out No longer eligi ble based on patient's age to complete this topic HPV VACCINE Aged Out No longer eligi ble based on patient's age to complete this topic MENINGOCOCCAL (Group B) VACCINE SHARED DECISION-MAKING Aged Out No longer eligible based on patient's age to complete this topic MENINGOCOCCAL GROUPS A/C/Y/W VACCINE Aged Out No longer eligible based on patient's age to complete this topic Insurance MEDICARE MEDICARE SUPPLE[place] [address] Care Teams Grading Clerk Relationship Specialty Start Date End Date Harjit Santos MD [address] [place] [address] PCP - General Family Medicine 04/27/22
--- OUTSIDE RECORDS SUMMARY | 2024-08-08 15:09 | XMS_ITS | Clinical Summary ---
Author Organization [facility] [address] Address [address] [place] [address] Care Team Providers Care Associate Program Manager Name Role Phone Harjit Santos MD Primary Care Provider + [phone] Sylvester Patrick MD Unavailable Sudeep Prajapati MD Unavailable Allergies Active Allergy Reactions Criticality Noted Date [...] MG) BY MOUTH EVERY NIGHT 30 tablet 05/03/2023 Active escitalopram (LEXAPRO) 10 mg tablet [...] 4 02/03/2021 Coronary artery disease invo lving shinnecock heart without angina pectoris 01/24/2021 Overview (01/26/2021): Added automatically from request for surgery [id number] Hypertension 11/06/2012 Shortness of breath 11/06/2012 Hypercholesterolemia 11/06/2012 Encounters Date Type Department Care Team Description 06/22/2024 Orders Only [facility] Orthopedics and Sports Medicine [address] [place] [address] [address] [address] Ammon Langford MD Nondisplaced fracture of greater trochanter of right femur, initial encounter for closed fracture (HCC) (Primary Dx) 06/19/2024 Telephone [facility] Orthopedics and Sports Medicine [address] [place] [address] [address] [address] Ammon Langford MD PT orders 06/18/2024 10:15 AM CDT Office Visit [facility] Orthopedics and Sports Medicine [address] [place] [address] [address] [address] Ammon Langford MD Nondisplaced fracture of greater trochanter of right femur, initial encounter for closed fracture (HCC) (Primary Dx) 06/18/2024 7:47 AM CDT - 06/18/2024 11:59 PM CDT Hospital Encounter [facility] Orthopedics and Sports Medicine [address] [place] [address] [address] [address] Discharge Disposition: Discharge to home or self care 06/01/2024 Telephone [facility] Neuro Sleep [address] [facility] 6th [address] [place] [address] Riya Luo RN 05/30/2024 Telemedicine [facility] Stroke [address] [facility] 6th [address] [place] [address] Sudeep Prajapati MD Pompe disease (HCC) (Primary Dx); 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) from Last 3 Months Immunizations Immunization Administration Dates Next Due Influenza, Quadrivalent, Hig h Dose, Preservative Free, Intrr 12/14/2020 Influenza, Quadrivalent, Rec ombinant, Egg Free, Preservative Free, Intramuscular 12/10/2018 Influenza, Quadrivalent, Spl it, Preservative Free, Intramuscular 12/17/2017 Influenza, Trivalent, Preservative Free, Intramu scular 01/18/2015 Influenza, Unspecified 12/14/2020 Pneumococcal Polysaccharide PPV23 12/17/2017 Surgical History Surgery Date Site/Laterality Comments PARAESOPHAGEAL HERNIA REPAIR CORONARY ARTERY BYPASS GRAFT 01/27/2021 Coronary artery bypass grafting x 4 (GONZALES to LAD, saphenous vein graft sequential to diagonal branch and obtuse marginal branch, and saphenous vein graft to posterior descending branch) APPENDECTOMY CATARACT EXTRACTION Bilateral CARPAL TUNNEL RELEASE Left CHOLECYSTECTOMY TOTAL HIP ARTHROPLASTY Bilateral ELBOW SURGERY THORACOTOMY Left bochdalek hernia repair LUMBAR SPINE SURGERY Medical History Medical History Date Comments NSTEMI (non-ST elevated myoc ardial infarction) (HCC) HTN (hypertension) HLD (hyperlipidemia) Muscular dystrophy (HCC) Noted b y Cardiology in January 2021 note, muscular dystrophy causing weak diaphragm Anxiety Kidney infection TIA (transient ischemic attack) Family History Medical History Relation Name Comments Diabetes Brother Coronary artery disease Father Heart disease Father Hypertension Father Coronary artery disease Mother Diabetes Mother Heart disease Mother Hypertension Mother Stroke Mother Relation Name Status Comments Brother Father (Age 53) Mother (Age 76) Social History Tobacco Use Types Packs/Day Years [...] on file Legal Sex Female 12:17 AM 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 Gender Identity Not on file Sexual Orientation Not on file Obstetrics History Last Filed Vital Signs Vital Sign Reading Time Taken Comments Blood Pressure 129/76 06/18/2024 9:59 AM CDT Pulse 76 06/18/2024 9:59 AM CDT Temperature 36.7 C (98 F) 06/05/2022 8:14 AM 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 SUPERVISOR Respiratory Rate 18 05/03/2022 11:29 AM 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 SUPERVISOR Oxygen Saturation 98% 07/11/2023 1:04 PM CDT Inhaled Oxygen Concentration - - Weight 55.8 kg (123 lb) 06/18/2024 9:59 AM CDT Height 160 cm (5' 3 ) 06/18/2024 9:59 AM CDT Body Mass Index 21.79 06/18/2024 9:59 AM CDT Plan of Treatment Health Maintenance Due Date Last Done Comments Breast Cancer Screening-Mammogram 1950 Colon Cancer Screening-Colonoscopy 1950 Depression Screening 1950 Hepatitis C Screening 1950 Osteoporosis Screening-Bone Density Scan 1950 DTaP/Tdap/Td Vaccine (1 - Tdap) 09/11/1962 Hepatitis B Screening 09/11/1969 Zoster Vaccine (1 of 2) 09/11/2001 Well Visit 65+ 09/11/2016 Pneumococcal vaccine 65+ (2 of 2 - PCV) 12/17/2018 12/17/2017 Fall Risk Assessment 02/14/2022 02/14/2021 Covid-19 Vaccine (4 - 2023-2 5 season) 2023 01/06/2021, 05/31/2020, 05/08/2020 Influenza Vaccine (#1) 2023 , 12/14/2020, 12/10/2018, Additional history exists Procedures Procedure Name Priority Date/Time Associated Diagnosis [...] formation without displacement. This appears quite stable. us Ammon Langford MD IMG XR PROCEDURES Final Result from Last 3 Months Insurance [facility] MEDICARE ADVANTAGE [facility]IC[facility] Address: [facility] [address] [place] [address] COMMERCIAL GENERIC MEDICARE MEDICARE COMMERCIAL GENERIC [facility] MDCR HMO REF [facility] MEDICARE Address: [address] [address] [place] [address] MEDICARE COMMERCIAL GENERIC Advance Directives For more information, please contact: [phone] * Full Code (Latest Code Status on File) Date Activated Date Inactivated Comments 02/03/2021 7:58 PM 02/14/2021 5:13 PM * Full Code Date Activated Date Inactivated Comments 01/25/2021 8:58 AM 02/03/2021 7:39 PM Care Teams Associate Program Manager Relationship Specialty Start Date End Date Harjit Santos MD PCP - General Family Medicine 03/09/21 Sylvester Patrick MD [address] [place] [address] [address] [place] [address] Referring Physician Neurology 06/05/22 Sudeep Prajapati MD [address] [facility] NEUROLOGY SLEEP [facility] [address] [place] [address] Consulting Physician Sleep Medicine 04/29/23
--- OUTSIDE RECORDS SUMMARY | 2024-08-08 15:09 | XMS_ITS | Encounter Summary ---
Author Organization [facility] Address [address] [place] [address] Care Team Providers Care Electrician Constructor Supervisor Name Role Phone Harjit Santos MD Primary Care Provider [phone] Encounter Details Date Type Department Care Team (Late st Contact Info) Description 11/23/2022 Therapy Plan [facility] [place] [address] Eric Martinez MD [address] [address] Social History Tobacco Use Types Packs/Day Years [...] Info) Description 08/12/2024 8:00 AM CDT Treatment [facility] [place] [address] Sylvester Patrick MD [address] [address] [place] [address] 08/26/2024 8:00 AM CDT Treatment [facility] [place] [address] Sylvester Patrick MD [address] [place] [address] 09/09/2024 8:00 AM CDT Treatment [facility] [place] [address] Sylvester Patrick MD [address] [place] [address] 09/23/2024 8:00 AM CDT Treatment [facility] [place] [address] Sylvester Patrick MD [address] [place] [address] 10/07/2024 8:00 AM CDT Treatment [facility] [place] [address] Sylvester Patrick MD [address] [place] [address] 10/21/2024 8:00 AM CDT Treatment [facility] [place] [address] Sylvester Patrick MD [address] [place] [address] 11/04/2024 8:00 AM CDT Treatment [facility] [place] [address] Sylvester Patrick MD [address] [place] [address] 11/18/2024 8:00 AM CDT Treatment [facility] [place] [address] Sylvester Patrick MD [address] [place] [address] 12/02/2024 8:00 AM CDT Treatment [facility] [place] [address] Sylvester Patrick MD [address] [place] [address] 12/09/2024 8:00 AM CDT Treatment [facility] [place] [address] Sylvester Patrick MD [address] [place] [address] 12/23/2024 8:00 AM CDT Treatment [facility] [place] [address] Sylvester Patrick MD [address] [place] [address] 01/06/2025 8:00 AM CDT Treatment [facility] [place] [address]Sylvester Wood MD [address] [place] [address] 01/20/2025 8:00 AM CDT Treatment [facility] [place] [address] Sylvester Patrick MD [address] [place] [address] 02/03/2025 8:00 AM CDT Treatment [facility] [place] [address] Sylvester Patrick MD [address] [place] [address] 02/17/2025 8:00 AM HUMANITIES PROFESSOR Treatment [facility] [place] [address] Sylvester Patrick MD [address] [place] [address] 03/03/2025 8:00 AM HUMANITIES PROFESSOR Treatment [facility] [place] [address] Sylvester Patrick MD [address] [place] [address] documented as of this encounter Visit Diagnoses Diagnosis Pompe's disease (CMS/HCC HHS/HCC)- Primary Glycogenosis Pompe's disease (CMS/HCC HHS/HCC)- Primary Glycogenosis Pompe's disease (CMS/HCC HHS/HCC)- Primary Glycogenosis Pompe's disease (CMS/HCC HHS/HCC)- Primary Glycogenosis Pompe's disease (CMS/HCC HHS/HCC)- Primary Glycogenosis Pompe's disease (CMS/HCC HHS/HCC)- Primary Glycogenosis Pompe's disease (CMS/HCC HHS/HCC)- Primary Glycogenosis Pompe's disease (CMS/HCC HHS/HCC)- Primary Glycogenosis Pompe's disease (CMS/HCC HHS/HCC)- Primary Glycogenosis Pompe's disease (CMS/HCC HHS/HCC)- Primary Glycogenosis Pompe's disease (CMS/HCC HHS/HCC)- Primary Glycogenosis Pompe's disease (CMS/HCC HHS/HCC)- Primary Glycogenosis Pompe's disease (CMS/HCC HHS/HCC)- Primary Glycogenosis Pompe's disease (CMS/HCC HHS/HCC)- Primary Glycogenosis Pompe's disease (CMS/HCC HHS/HCC)- Primary Glycogenosis Pompe's disease (CMS/HCC HHS/HCC)- Primary Glycogenosis Pompe's disease (CMS/HCC HHS/HCC)- Primary Glycogenosis documented in this encounter Care Teams Electrician Constructor Supervisor Relationship Specialty Start Date End Date Harjit Santos MD [address] [address] PCP - General FAMILY PRACTICE 04/14/22 documented as of this encounter
== END 2024-08-07 19:39 | disposition short-term general hospital (02) ==
LOC: EXPBETH 18:39
PROVIDERS: Emergency Provider Registered Nurse; PCP Family Medicine
DX: R50.9 Fever, unspecified (principal); E74.02 Pompe disease; N39.0 Urinary tract infection, site not specified; Z20.822 Contact with and (suspected) exposure to COVID-19; I10 Essential (primary) hypertension; E78.5 Hyperlipidemia, unspecified; Z86.73 Personal history of transient ischemic attack (TIA), and cerebral infarction without residual deficits; M19.90 Unspecified osteoarthritis, unspecified site; Z95.1 Presence of aortocoronary bypass graft; Z96.643 Presence of artificial hip joint, bilateral; Z98.42 Cataract extraction status, left eye; Z98.41 Cataract extraction status, right eye; Z79.82 Long term (current) use of aspirin
CPT/HCPCS: 71046; 81003; 87086; 87186; 87426; 87804; 93005; 99213; G0463

== ENCOUNTER 2024-08-07 20:03 | Inpatient (IN) | payer MEDICARE, SELFPAY ==
--- NOTE | ~2024-08-07 | CT_ITS ---
CT abdomen pelvis w con Ordering provider: Alley Nguyen PA-C History: 73 years Female with . left upper abdominal discomfort, fever . Comparison: November 29, 2022 Technique: CT abdomen and pelvis with IV and without oral contrast. Automated exposure control and it erative reconstruction technique were employed. The dose-length product was 337.07 mGy-cm. 100 mL Omn ipaque 350 was given IV. Findings: VISUALIZED LOWER CHEST: Dependent atelectatic changes. Postoperative changes in the mediastinum. UPPER ABDOMINAL ORGANS: Liver: Normal. Slightly dilated CBD measuring 8 mm. Gallbladder: Normal. Spleen: Normal. Stomach/duodenum: Slightly thickened wall of the duodenum which may indicate duodenitis. Pancreas: Normal. Slightly prominent pancreatic duct. Adrenals: Normal. Kidneys: Normal. PELVIC ORGANS: The bladder is normal. BOWEL AND MESENTERY: Colon: No evidence of diverticulitis. Fecal impaction in the rectum is noted. No evidence of appendic itis. Small Bowel: Normal. No obstruction. Peritoneum/mesentery: No free air or free fluid. No mesenteric lymphadenopathy. RETROPERITONEUM: Mild atheromatous disease of the abdominal aorta. No retroperitoneal lymphadenopat hy. MUSCULOSKELETAL: Superficial soft tissues: The superficial soft tissues are normal. Bones: Age appropriate degenerative changes of the spine. Postoperative changes in the lower spine. B ilateral hip arthroplasty. Artifacts are seen in the area of the pelvis. IMPRESSION: 1. No evidence of appendicitis, diverticulitis or intestinal obstruction. 2. Slightly thickened wall of the first part of the duodenum which may indicate duodenitis. 3. Fecal impaction in the rectum. Reviewed, dictated and finalized at location A. IMPRESSION: 1. No evidence of appendicitis, diverticulitis or intestinal obstruction. 2. Slightly thickened wall of the first part of the duodenum which may indicat e duodenitis. 3. Fecal impaction in the rectum.
[2024-08-07 20:14] VITALS: BP 139/75; PULSE 126; RESP 22; TEMP 37.4; O2SAT 97
[2024-08-07 21:01] LABS: Basophils Absolute Auto 0.1 K/mm3 (0.0-0.1); Basophils Percent Auto 0.3 % (0.2-1.2); Eosinophils Absolute Auto 0.1 K/mm3 (0-0.3); Eosinophils Percent Auto 0.2 % (0-4.4); Hematocrit 34.3 % (37.0-47.0); Hemoglobin 10.7 g/dL (12.0-15.0); Immature Granulocyte Absolute 0.21 K/mm3 (0.00-0.031); Immature Granulocyte Percent A 0.7 % (0-0.5); Lymphocytes Absolute Auto 0.74 K/mm3 (0.9-3.2); Lymphocytes Percent Auto 2.4 % (18.3-44.2); Mean Corpuscular HGB Conc 31.2 g/dl (32-36); Mean Corpuscular Hemoglobin 27.2 pg (26-34); Mean Corpuscular Volume 87.1 fl (80-100); Mean Platelet Volume 9.1 fl (7.4-10.4); Monocytes Absolute Auto 1.7 K/mm3 (0.1-0.6); Monocytes Percent Auto 5.4 % (2.6-8.5); Neutrophils Absolute Auto 27.7 K/mm3 (1.3-6.7); Platelet Count Result 295 k/mm3 (150-375); Red Blood Count 3.94 M/mm3 (4.2-5.4); Red Cell Distribution Width 14.1 % (11.5-14.5); White Blood Count 30.5 K/mm3 (4.5-10.0)
--- NOTE | 2024-08-07 21:07 | ED.FEVER ---
HPI - Fever General Chief Complaint: Fever Stated Complaint: Fever, chills, tremors has Pompe Disease Time Seen by Provider: 08/07/24 20:37 History of Present Illness HPI Narrative: Patient is a 73-year-old female who presents to the emergency department this evening from local urgent care due to concern for sepsis. Patient initially presented to the ER injured care with 102° F fever and tremors. Patient had a chest x-ray and urinalysis obtained revealing a left-sided pleural effusion, small and a urinary tract infection. Viral swabs including COVID and influenza were negative. Patient does have a history of Pompe disease and follows up with an home appliance technician at [facility] where she receives enzyme replacement therapy. Patient was noted to be tachycardic and given her fever, urgent Care was concerned for sepsis and set the patient to our facility for further evaluation. Patient states that she does have a history of coronary artery disease and has noticed recently that when she lays flat she has a difficult time breathing. Denies any history of CHF. No clinical evidence of fluid overload. She does use a breathing machine at night but states that it is not a BiPAP, she calls it a vent like machine. Otherwise she is denying any current chest pain or shortness of breath, any nausea vomiting or abdominal. No additional symptoms or concerns at this time. Related Data Home Medications Medication Instructions Recorded Confirmed Last Taken Type acetaminophen 325 mg tablet 325 mg PO Q6H PRN fever or pain 03/01/21 08/07/24 Unknown History (Tylenol) aspirin 81 mg tablet,delayed 81 mg PO DAILY 03/01/21 08/07/24 Unknown History release (Adult Aspirin Regimen) magnesium 250 mg tablet 500 mg PO DAILY 11/12/22 08/07/24 Unknown History Allergies Allergy/AdvReac Type Severity Reaction Status Date / Time carbamazepine Allergy Unknown Verified 08/07/24 18:51 codeine Allergy Unknown Verified 08/07/24 18:51 fenofibrate Allergy Unknown Verified 08/07/24 18:51 Sulfa (Sulfonamide Allergy Unknown Verified 08/07/24 18:51 Antibiotics) duloxetine (From Cymbalta) AdvReac Intermediate Other Verified 08/07/24 18:51 Review of Systems Review of Systems: All systems are reviewed and are negative unless stated otherwise in the [facility]. 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 History of mumps Herpesviral infection, unspecified Left carpal tunnel syndrome Cubital tunnel syndrome on left Surgical History Surgical History History of knee replacement, total History of quadruple bypass History of open heart surgery History of total replacement of both hip joints History of cholecystectomy History of bilateral cataract extraction Status post repair of paraesophageal diaphragmatic hernia History of cardiac catheterization History of elbow surgery Left cubital tunnel release History of carpal tunnel surgery of left wrist History of thoracotomy History of lumbar surgery History of appendectomy Family History Family History Father , age 53 Acute myocardial infarction Family history of coronary artery disease Hypertension Sibling Macular degeneration AMD (acid maltase deficiency) Mother , age 76 Family history of elevated blood lipids Diabetes mellitus Family history of diabetes mellitus in first degree relative Patient's mother is Family history of coronary artery disease Cerebrovascular accident Sibling Diabetes mellitus Hypertension Daughter Allergies Hypertension Social History Social History Social History: Surrogate decision-maker: Horacio Arce, . CODE STATUS: Full code. Smoking status: Never smoker Second hand tobacco smoke exposure: No Alcohol intake: never Substance use: never Substance use type: does not use Lack of Transportation: No Lack of Food: Never True Current Housing: I Have Housing Concerned About Future Housing: No Difficulty Paying Gas/Electric Bills: No Difficulty Paying for Meds: No Currently Unemployed: No Education: High School Diploma/GED Difficulty w/ Childcare or Family Care: No Living arrangements: with family Additional living arrangements comments: Lives with her in [place]. She has an adult daughter. 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 Gender identity (if verbalized by the patient): Female Spiritual care concerns: No Exam Narrative: General: Alert, awake, afebrile, in no acute distress. HEENT: PERRL, no rhinorrhea, no post nasal drip, oropharynx clear. Neck: Trachea midline, no JVD, no lymphadenopathy. Cardiovascular: Tachycardic with regular rhythm, no murmurs, rubs or gallops, no peripheral edema. Respiratory: Clear to auscultation bilaterally, no tachypnea, no wheezing, no rhonchi, no rubs, no respiratory distress. Abdomen: Soft, nontender, nondistended, no rebound, no guarding, no peritoneal signs. Musculoskeletal: No joint swelling or deformity, normal muscle tone. Skin: No rashes or petechia, no signs of infection. Psychiatric: Alert and oriented, normal behavior and judgment for situation. Neurological: Alert and oriented to person, place, and time. Follows all commands. No focal deficits, speech is clear and fluent. Course Vital Signs Vital signs: Vital Signs Temperature 99.3 F 08/07/24 20:14 Pulse Rate 126 H 08/07/24 20:14 Respiratory Rate 22 H 08/07/24 20:14 Blood Pressure 139/75 08/07/24 20:14 Pulse Oximetry 97 08/07/24 20:14 Oxygen Delivery Room Air 08/07/24 20:14 Temperature 99 F 08/07/24 21:09 Pulse Rate 111 H 08/07/24 21:09 Respiratory Rate 14 08/07/24 21:09 Blood Pressure 128/60 08/07/24 21:09 Pulse Oximetry 96 08/07/24 21:09 Oxygen Delivery Room Air 08/07/24 20:14 MDM - Fever MDM Narrative Medical decision making narrative: The patient was evaluated by myself in the emergency department. History is obtained from patient who is an independent historian and physical exam was performed. External medical records were reviewed at this time. IV was established and pertinent tests were ordered. Patient was administered 1 L IV fluid bolus with normal saline. EKG was obtained which revealed sinus tachycardia rate of 112 beats per minute, no evidence of acute ischemia. EKG was independently interpreted by me and is currently pending official cardiology read. Laboratory results obtained revealing a leukocytosis of 30.5, otherwise unremarkable. Urinalysis obtained at urgent care was noted to be nitrite positive, no leukocyte esterases. Patient was administered 1 g of IV Rocephin at this time due to concern for UTI. Blood cultures were obtained prior to antibiotic administration. Patient was continued on maintenance fluids at a rate of 100 cc per hour. Imaging studies obtained at urgent care included CXR which was independently interpreted by me revealing: IMPRESSION: Right basilar atelectatic changes. Minimal effusion in the posterior costophrenic angle. Differential diagnosis considerations include sepsis secondary to infectious process such as pneumonia/urinary tract infection, dehydration, electrolyte derangements. Comorbidities impacting this visit include history of Pompe disease. I have evaluated and discussed social determinants of health with the patient that could potentially impact subsequent diagnosis and treatment plans. On repeat assessment of the patient, reevaluation revealed that the patient is doing well and is in no acute distress. Patient symptoms have improved since she arrived to our emergency department. Repeat vital signs were all reviewed and noted to be stable. Differential diagnosis and treatment plan were discussed with the patient at bedside. Patient agrees with discussion and after shared medical decision making agrees with admission. All questions were answered to the patient's satisfaction. Case was discussed with the on-call WAITSTAFF CAPTAIN Miriam at 2220 and she accepted admission. Lab Data 08/07/24 20:55 08/07/24 20:55 Labs: Lab Results 08/07/24 08/07/24 Range/Units 20:55 20:55 WBC 30.5 H (4.5-10.0) K/mm3 RBC 3.94 L (4.2-5.4) M/mm3 Hgb 10.7 L (12.0-15.0) g/dL Hct 34.3 L (37.0-47.0) % MCV 87.1 (80-100) fl MCH 27.2 (26-34) pg MCHC 31.2 L (32-36) g/dl RDW 14.1 (11.5-14.5) % Plt Count 295 (150-375) k/mm3 MPV 9.1 (7.4-10.4) fl Immature Gran % (Auto) 0.7 H (0-0.5) % Neut % (Auto) 91.0 H (45.5-73.1) % Lymph % (Auto) 2.4 L (18.3-44.2) % Wetzel % (Auto) 5.4 (2.6-8.5) % Eos % (Auto) 0.2 (0-4.4) % Baso % (Auto) 0.3 (0.2-1.2) % Lymph # (Auto) 0.74 L (0.9-3.2) K/mm3 Wetzel # (Auto) 1.7 H (0.1-0.6) K/mm3 Eos # (Auto) 0.1 (0-0.3) K/mm3 Baso # (Auto) 0.1 (0.0-0.1) K/mm3 Abs Immat Gran (auto) 0.21 H (0.00-0.031) K/mm3 Absolute Neuts (auto) 27.7 H (1.3-6.7) K/mm3 Absolute Nucleated RBC 0.000 (0.0-0.012) K/mm3 Band Neutrophils % Not Reportable Nucleated RBC % 0.0 (0.0-0.2) % Platelet Estimate Slightly increased (Adequate) Hypochromasia 1+ Bite Cells 1+ Acanthocytes (Spur) 1+ Schistocytes None seen PT 14.2 (11.1-14.7) Seconds INR 1.1 APTT 27.4 (22.3-36.8) Seconds Sodium 139 (137-145) mmol/L Potassium 3.5 (3.4-5.0) mmol/L Chloride 106 (98-107) mmol/L Carbon Dioxide 24 (22-30) mmol/L Anion Gap 9 (4-12) mmol/L BUN 20 H D (7-17) mg/dL Creatinine 0.58 L (0.7-1.0) mg/dL Estim Creat Clear Calc 61 ml/min Estimated GFR > 60 (59 - ) Glucose 118 H (65-110) mg/dL Lactic Acid 1.3 (0.7-2.0) mmol/L Calcium 9.6 (8.4-10.2) mg/dL Magnesium 1.7 (1.6-2.3) mg/dL Total Bilirubin 0.8 (0.2-1.3) mg/dL AST 32 (14-36) U/L ALT 36 H (6-35) U/L Alkaline Phosphatase 141 H (38-126) U/L C-Reactive Protein 0.5 (<1.0) mg/dL NT-Pro-B Natriuret Pep 151 H Cancelled (19.9-100) pg/mL Total Protein 8.0 (6.3-8.2) g/dL Albumin 4.5 (3.5-5.1) g/dL Discharge Plan Discharge Clinical Impression: Sepsis, Acute UTI Patient Disposition: Still a Patient Condition: Stable Patient Language: Albanian Prescriptions: No Action aspirin [Adult Aspirin Regimen] 81 mg tablet,delayed release (DR/EC) 81 mg PO DAILY acetaminophen [Tylenol] 325 mg tablet 325 mg PO Q6H PRN (Reason: fever or pain) atorvastatin 80 mg tablet 80 mg PO DAILY Qty: 90 0RF Rx Instructions: cardio Nexviazyme 100 mg recon soln 1,089 mg IV ONCE Qty: 1 0RF Rx Instructions: infusion for Pompee's disease magnesium 250 mg tablet 500 mg PO DAILY Follow-up/Referrals: Harjit Santos MD [Primary Care Provider] - Time of Disposition: 22:28
[2024-08-07 21:09] VITALS: BP 128/60; PULSE 111; RESP 14; TEMP 37.2; O2SAT 96
--- NOTE | 2024-08-07 21:11 | ECG_ITS ---
Test Date: 2024-08-07 19:13:59 Measurements Intervals [place] Rate: 109 P: -15 MD: 120 QRS: 12 QRSD: 78 T: 60 QT: 227 QTc: 306 Interpretive Statements SINUS TACHYCARDIA NONSPECIFIC ST & T-WAVE ABNORMALITY ABNORMAL RHYTHM ECG No previous ECG available for comparison Electronically Signed On 08-08-2024 11:46:42 CDT by Real Rutledge M.D.
[2024-08-07] MEDS: SODIUM CHLORIDE 0.9% IV 1,000 ML 999 ML IV CONT (21:12)
[2024-08-07 21:13] LABS: INR 1.1; Prothrombin Time 14.2 Seconds (11.1-14.7)
[2024-08-07 21:14] LABS: Partial Thromboplastin Time 27.4 Seconds (22.3-36.8)
[2024-08-07 21:15] LABS: Lactic Acid Reflex 1.3 mmol/L (0.7-2.0)
[2024-08-07 21:17] LABS: Alanine Aminotransferase 36 U/L (6-35); Albumin Level 4.5 g/dL (3.5-5.1); Alkaline Phosphatase 141 U/L (38-126); Anion Gap 9 mmol/L (4-12); Aspartate Amino Transferase 32 U/L (14-36); Bilirubin,Total 0.8 mg/dL (0.2-1.3); Blood Urea Nitrogen 20 mg/dL (7-17); CRP 0.5 mg/dL (<1.0); Calcium 9.6 mg/dL (8.4-10.2); Carbon Dioxide 24 mmol/L (22-30); Chloride 106 mmol/L (98-107); Estimated CRCL calculation 61 ml/min; Estimated Glomerular Filt Rate > 60; Glucose 118 mg/dL (65-110); Magnesium 1.7 mg/dL (1.6-2.3); Potassium 3.5 mmol/L (3.4-5.0); Sodium 139 mmol/L (137-145)
[2024-08-07 21:22] LABS: Hypochromasia 1+; Platelet Estimate Slightly Increased (Adequate)
[2024-08-07 21:23] LABS: Acanthocytes 1+; Bite Cells 1+
[2024-08-07 21:25] LABS: Schistocytes None Seen
[2024-08-07 21:32] LABS: NT Pro B Type Natriuretic Pept 151 pg/mL (19.9-100)
[2024-08-07 22:27] VITALS: BP 126/55; PULSE 110; RESP 15; TEMP 36.8; O2SAT 96
--- NOTE | 2024-08-07 22:45 | PM.IMHP ---
H&P: HPI History of Present Illness Date/Time: 08/07/24 22:45 Chief Complaint: Fever. 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 She felt fine when she got up this morning and around 14:00 or so “my teeth started to chatter and my arms started to shake.” With further questioning she does mention dysuria and urgency recently but she no other complaints and specifically denies headache, neck ache, sinus congestion, sore throat, cough, vomiting, and diarrhea. She went to urgent care at which time she was found to have a temperature 101.9° F and her urine dipstick was nitrate positive though negative for leukocytes. She was then directed to the emergency department with concerns for possible sepsis. At the time my evaluation she feels just fine. In the ED: Temperature was 99.3°, blood pressure 139/75, pulse 126, respiratory 22, SpO2 97% on room air. Labs are significant for WBC count 30.5, hemoglobin 10.7, BUN 20, creatinine 0.58, lactic acid 1.3, CRP 0.5. CT of the abdomen and pelvis showed slightly thickened wall of the 1st part of the duodenum which may indicate duodenitis and fecal impaction in the rectum. She was given ceftriaxone 1 g for suspected urinary tract infection given results obtained at urgent care and she is being admitted in this setting for further treatment. Review of Systems Review of Systems: Twelve systems were reviewed. She has occasional rhinorrhea which is unchanged. She had a 4 vessel bypass done in 2020 and has lost about 30 lb since that time however weight has been pretty stable as she drinks Ensure multiple times a day however has been cutting back as she believes that it may be causing her some constipation. She endorses occasional discomfort in the left side of the abdomen which has been ongoing and intermittent issue. She wears what sounds like a trilogy unit or something similar at home due to respiratory muscle weakness as a result of Pompe. Except as documented, all other systems were reviewed and are negative. 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 History of mumps Herpesviral infection, unspecified Left carpal tunnel syndrome Cubital tunnel syndrome on left Surgical History Surgical History (Updated 08/08/24 @ 05:16 by Alley Nguyen PA-C) History of four vessel coronary artery bypass graft (01/2021) History of knee replacement, total History of open heart surgery History of total replacement of both hip joints History of cholecystectomy History of bilateral cataract extraction Status post repair of paraesophageal diaphragmatic hernia History of cardiac catheterization History of elbow surgery Left cubital tunnel release History of carpal tunnel surgery of left wrist History of thoracotomy History of lumbar surgery History of appendectomy Family History Family History Father , age 53 Acute myocardial infarction Family history of coronary artery disease Hypertension Sibling Macular degeneration AMD (acid maltase deficiency) Mother , age 76 Family history of elevated blood lipids Diabetes mellitus Family history of diabetes mellitus in first degree relative Patient's mother is Family history of coronary artery disease Cerebrovascular accident Sibling Diabetes mellitus Hypertension Daughter Allergies Hypertension Social History Social History (Updated 08/08/24 @ 05:16 by Alley Nguyen PA-C) Social History: Surrogate decision-maker: Horacio Arce, . CODE STATUS: Full code. Smoking status: Never smoker Second hand tobacco smoke exposure: No Alcohol intake: never Substance use: never Substance use type: does not use Do You Feel Safe in your Home?: Yes Lack of Transportation: No Lack of Food: Never True Current Housing: I Have Housing Concerned About Future Housing: No Difficulty Paying Gas/Electric Bills: No Difficulty Paying for Meds: No Currently Unemployed: No Education: High School Diploma/GED Difficulty w/ Childcare or Family Care: No Living arrangements: with family Additional living arrangements comments: Lives with her in [place]. She has an adult daughter. 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 Spiritual care concerns: No Meds Home Medications and Allergies Home Medications Medication Instructions Recorded Confirmed Type acetaminophen 325 mg tablet 325 mg PO Q6H PRN fever or pain 03/01/21 08/08/24 History (Tylenol) aspirin 81 mg tablet,delayed 81 mg PO DAILY 03/01/21 08/08/24 History release (Adult Aspirin Regimen) atorvastatin 80 mg tablet 80 mg PO DAILY #90 tabs 04/03/21 08/08/24 Rx avalglucosidase boris-ngpt 100 mg 1,089 mg IV ONCE #1 ea 07/23/22 08/08/24 Rx intravenous solution (Nexviazyme) magnesium 250 mg tablet 500 mg PO DAILY 11/12/22 08/08/24 History acetaminophen 500 mg tablet 500 mg PO QAM 08/08/24 08/08/24 History (Acetaminophen Extra Strength) Allergies Allergy/AdvReac Type Severity Reaction Status Date / Time carbamazepine Allergy Unknown Verified 08/07/24 18:51 codeine Allergy Unknown Verified 08/07/24 18:51 fenofibrate Allergy Unknown Verified 08/07/24 18:51 Sulfa (Sulfonamide Allergy Unknown Verified 08/07/24 18:51 Antibiotics) duloxetine (From Cymbalta) AdvReac Intermediate Other Verified 08/07/24 18:51 Vital Signs Vital Signs - 24 hr 08/07/24 20:14 08/07/24 21:09 08/07/24 22:27 Temperature 99.3 F 99 F 98.3 F Pulse Rate 126 H 111 H 110 H Respiratory Rate 22 H 14 15 Blood Pressure 139/75 128/60 126/55 L Pulse Oximetry 97 96 96 Oxygen Delivery Room Air Exam Narrative: General: Nontoxic-appearing female sitting up in bed in no acute distress. Weight: 56.25 kg. BMI: 22.0. HEENT: PERRL, EOMI. Sclera anicteric. Moist mucous membranes. Neck: Supple. Respiratory: Lungs are clear to auscultation bilaterally. Cardiovascular: Regular rate and rhythm with S1-S2. Gastrointestinal: Abdomen is soft and nondistended with positive bowel sounds. She is a bit tender to palpation throughout the left side of the abdomen. No guarding or rebound tenderness. Skin: Warm and dry. No rash or lesions on limited exam. Extremities: No cyanosis, clubbing, or edema. Radial and pedal pulses intact. Neurological: Alert. Cranial nerves 2-12 are grossly intact. No gross focal deficits to casual conversation. Psychiatric: Pleasant and cooperative with normal mood and affect. Judgment and insight intact. H&P: Results Labs Labs: Short CBC 08/07/24 Range/Units 20:55 WBC 30.5 H (4.5-10.0) K/mm3 Hgb 10.7 L (12.0-15.0) g/dL Hct 34.3 L (37.0-47.0) % Plt Count 295 (150-375) k/mm3 BMP 08/07/24 20:55 Sodium 139 Potassium 3.5 Chloride 106 Carbon Dioxide 24 BUN 20 H D Creatinine 0.58 L Glucose 118 H Calcium 9.6 Liver Function 08/07/24 Range/Units 20:55 Total Bilirubin 0.8 (0.2-1.3) mg/dL AST 32 (14-36) U/L ALT 36 H (6-35) U/L Alkaline Phosphatase 141 H (38-126) U/L Albumin 4.5 (3.5-5.1) g/dL Impressions Abdomen/Pelvis CT 08/07/24 23:53 IMPRESSION: 1. No evidence of appendicitis, diverticulitis or intestinal obstruction. 2. Slightly thickened wall of the first part of the duodenum which may indicate duodenitis. 3. Fecal impaction in the rectum. Assessment and Plan Assessment and plan (1) Fever: Code(s): R50.9 - Fever, unspecified Status: Acute (2) Fecal impaction: Code(s): K56.41 - Fecal impaction Status: Acute (3) Pompe disease: Code(s): E74.02 - Pompe disease Status: Acute (4) Normocytic anemia: Code(s): D64.9 - Anemia, unspecified Status: Acute Plan The patient presented to the emergency department from urgent care with concerns for sepsis after she was found to be febrile with reports what sounds like rigors earlier today as detailed in the HPI. Labs, imaging, EKG, and all reports were personally reviewed. Urine was reportedly nitrite positive at urgent care though was negative for bacteria and leukocyte esterase. None the less we will continue with empiric ceftriaxone given her fever and significantly elevated WBC count. A urine sample has not yet been collected and is pending at the time of this dictation. Blood cultures and urine cultures ordered. CT of the abdomen pelvis showed findings of fecal impaction in the rectum and we discussed starting a bowel regimen of MiraLax and perhaps even an enema however she does not seem to tolerate MiraLax very well but she is willing to try Dulcolax suppository in the morning. CT scan also shows slightly thickened wall of the 1st part of the duodenum which may indicate duodenitis which I suppose could be causing her intermittent abdominal discomfort. She was encouraged to follow-up with her primary care provider for possible GI referral; with her Pompe disease it is possible that an EGD or any other procedure, if deemed necessary, would need to be done at a tertiary care facility. Check iron studies, B12, and folate for evaluation of anemia. Vital signs have been stable since arrival. She was encouraged to bring ventilator from home for her to use while hospitalized as we do not have the equivalent here. Her home medications will be reviewed and resumed as appropriate. Findings and treatment plan were discussed with the patient. Questions were solicited and answered to satisfaction. The patient's medical management will be taken over by the hospitalist team in a.m. Quality VTE Prophylaxis VTE prophylaxis: pharmacologic ordered Hospitalist [facility] Advance Care Plan I have confirmed that the patient's Advanced Care Plan is present, code status is documented, or surrogate decision maker is listed in patient medical record.: Yes Medication Reconciliation I have utilized all available resources to obtain, update and review the patients current medications (includes all prescriptions, OTC, herbals, cannabis, and nutritional supplements).: Yes
[2024-08-07 23:46] VITALS: BP 148/85; PULSE 96; RESP 15; O2SAT 98
[2024-08-08] VITALS: BP 140/72; PULSE 98; RESP 16; TEMP 36.9; O2SAT 100
[2024-08-08] MEDS: SODIUM CHLORIDE 0.9% IV 1,000 ML 100 ML IV CONT (01:03)
[2024-08-08 05:10] VITALS: BP 127/62; PULSE 82; RESP 16; TEMP 36.5; O2SAT 100
[2024-08-08 05:50] LABS: Basophils Absolute Auto 0.1 K/mm3 (0.0-0.1); Basophils Percent Auto 0.2 % (0.2-1.2); Eosinophils Absolute Auto 0.1 K/mm3 (0-0.3); Eosinophils Percent Auto 0.4 % (0-4.4); Hematocrit 31.3 % (37.0-47.0); Hemoglobin 9.6 g/dL (12.0-15.0); Immature Granulocyte Absolute 0.15 K/mm3 (0.00-0.031); Immature Granulocyte Percent A 0.7 % (0-0.5); Lymphocytes Absolute Auto 2.17 K/mm3 (0.9-3.2); Lymphocytes Percent Auto 9.6 % (18.3-44.2); Mean Corpuscular HGB Conc 30.7 g/dl (32-36); Mean Corpuscular Hemoglobin 27.2 pg (26-34); Mean Corpuscular Volume 88.7 fl (80-100); Mean Platelet Volume 9.2 fl (7.4-10.4); Monocytes Absolute Auto 1.1 K/mm3 (0.1-0.6); Neutrophils Absolute Auto 18.9 K/mm3 (1.3-6.7); Neutrophils Percent Auto 84.1 % (45.5-73.1); Platelet Count Result 278 k/mm3 (150-375); Red Blood Count 3.53 M/mm3 (4.2-5.4); Red Cell Distribution Width 14.3 % (11.5-14.5); White Blood Count 22.5 K/mm3 (4.5-10.0)
[2024-08-08 05:56] LABS: Alanine Aminotransferase 31 U/L (6-35); Albumin Level 3.9 g/dL (3.5-5.1); Alkaline Phosphatase 114 U/L (38-126); Anion Gap 9 mmol/L (4-12); Aspartate Amino Transferase 30 U/L (14-36); Bilirubin,Total 0.6 mg/dL (0.2-1.3); Blood Urea Nitrogen 13 mg/dL (7-17); Calcium 9.2 mg/dL (8.4-10.2); Carbon Dioxide 23 mmol/L (22-30); Chloride 108 mmol/L (98-107); Estimated CRCL calculation 71 ml/min; Estimated Glomerular Filt Rate > 60; Glucose 100 mg/dL (65-110); Magnesium 1.8 mg/dL (1.6-2.3); Potassium 3.5 mmol/L (3.4-5.0); Sodium 140 mmol/L (137-145)
[2024-08-08 06:03] LABS: Iron 29 ug/dL (37-170)
[2024-08-08 06:07] LABS: Percent Iron Saturation 8 % (20-50)
[2024-08-08 06:08] LABS: Procalcitonin 1.6 ng/mL
[2024-08-08 06:17] VITALS: BMI 21.2
[2024-08-08 06:46] LABS: Acanthocytes 2+; Ovalocytes 1+; Platelet Estimate Adequate (Adequate); Schistocytes None Seen
[2024-08-08 07:11] LABS: Folic Acid 9.3 ng/mL (2.76->20)
[2024-08-08] MEDS: BISACODYL 10 MG SUPPOSITORY RECTAL (09:00)
[2024-08-08] MEDS: ASPIRIN 81 MG ENTERIC TABLET PO (09:00)
[2024-08-08] MEDS: MAGNESIUM OXIDE 400 MG TABLET PO (09:00)
[2024-08-08] MEDS: ENOXAPARIN 40 MG/0.4 ML SYRINGE SUB-Q (09:00)
[2024-08-08] MEDS: ACETAMINOPHEN 325 MG TABLET 650 MG PO (09:08)
--- NOTE | 2024-08-08 09:08 | P.PNIM_ITS ---
Progress Note: A&P Assessment and Plan (1) Fever: Code(s): R50.9 - Fever, unspecified Status: Acute Assessment and Plan: Afebrile today and overnight -Pending urine culture -VSS since admission (2) Fecal impaction: Code(s): K56.41 - Fecal impaction Status: Acute Assessment and Plan: Bowel regimen: -Dulcolax suppository given this AM after large BM, per pt request She was encouraged to follow-up with her primary care provider for possible GI referral; with her Pompe disease it is possible that an EGD or any other procedure, if deemed necessary, would need to be done at a tertiary care facility. (3) Pompe disease: Code(s): E74.02 - Pompe disease Status: Acute Assessment and Plan: Pt uses BIPAP at home for this, encouraged to bring her travel machine in due to her preferable route is nasal mask. (4) Normocytic anemia: Code(s): D64.9 - Anemia, unspecified Status: Acute Assessment and Plan: Abnormal iron panel today with an iron saturation of 8%. Total iron 29, TIBC WDL, ferritin WDL, MCV WDL, HGB 9.6 -Plan for Venofer infusion 500mg today and once more in the AM of 08/09 -Plan for pt to f/u with PCP at D/C for further management Plan -Trend labs on 08/09 AM to trend WBC -Venofer infusion 500mg 08/08 and 08/09 -Maintain hemodynamic status overnight -Continue IV abx this evening -Pending blood and urine culture - performed clean AM of 08/08 -Hopeful D/C 08/09 if remains hemodynamically stable Subjective Date/time seen: 08/08/24 0950 Interval history: Pt resting comfortably in bed. Pt reports that she just took a large, formed BM and feels a lot better. Be has been hemodynamically stable overnight and her WBC count is down trending. Pt still c/o mild LUQ pain but states she intermittently has this pain. Pt also updated me that she wears a BIPAP at home due to her Pompe disease. I encouraged pt to bring her travel machine due to her preferable route is nasal mask. Also explained to be about her low iron and the need for iron supplementation, pt agreeable; explained need to f/u with her PCP on this. Review of Systems Review of Systems: All systems reviewed & are unremarkable except as noted in HPI and below Gastrointestinal: Comments: intermittent LUQ pain Exam Const: General: comfortable and no acute distress HENMT: Face/Nose/Sinus: Normal nares present Mouth: Yes moist mucous membranes Eyes: General: appearance normal, both eyes and all related structures Sclera: sclerae normal Neck: Neck: supple and no JVD Carotids: no bruits Resp: Effort & Inspection: normal respiratory effort Auscultation: clear to auscultation bilaterally Cardio: Rate: regular rate Rhythm: regular rhythm GI: Auscultation: normal bowel sounds Other: Very mild TTP LUQ Skin: General skin exam: normal color and no rashes or lesions noted Wounds: no wounds Neuro: Speech: normal speech Motor exam (neuro): 5/5 motor strength present throughout Sensory Exam: normal sensation Extrem: General: normal to inspection Psych: Mental Status: mental status grossly normal Affect: normal affect Objective Data Vital Signs Vital Signs: Vital Signs - 24 hr 08/07/24 20:14 08/07/24 21:09 08/07/24 22:27 Temperature 99.3 F 99 F 98.3 F Pulse Rate 126 H 111 H 110 H Respiratory Rate 22 H 14 15 Blood Pressure 139/75 128/60 126/55 L Pulse Oximetry 97 96 96 Oxygen Delivery Room Air 08/07/24 23:46 08/08/24 00:00 08/08/24 05:10 Temperature 98.4 F 97.7 F Pulse Rate 96 98 82 Respiratory Rate 15 16 16 Blood Pressure 148/85 H 140/72 127/62 Pulse Oximetry 98 100 100 Oxygen Delivery Intake/Output Intake/Output: Intake & Output 08/05/24 08/06/24 08/07/24 08/08/24 23:59 23:59 23:59 23:59 Intake Total 1050 480 Balance 1050 480 Meds/Results Medications: Active Medications Generic Name Dose Route Start Last Admin Trade Name Freq PRN Reason Stop Dose Admin Acetaminophen 650 mg 08/08/24 05:26 Acetaminophen 325 Mg Tablet PO Q6H PRN Mild Pain (1-3) or Fever Aspirin 81 mg 08/08/24 09:00 08/08/24 09:00 Aspirin 81 Mg Enteric Tablet PO 81 mg DAILY EVE Administration Atorvastatin Calcium 80 mg 08/08/24 09:00 08/08/24 09:00 Atorvastatin 40 Mg Tablet PO 80 mg DAILY EVE Administration Enoxaparin Sodium 40 mg 08/08/24 09:00 08/08/24 09:00 Enoxaparin 40 Mg/0.4 Ml Syringe SUB-Q 40 mg DAILY EVE Administration Ceftriaxone Sodium 1 gm in 50 mls @ 100 mls/hr 08/08/24 21:00 Rocephin 1 Gm/Ns 50 Ml IVPB Q24H [facility] Magnesium Oxide 400 mg 08/08/24 09:00 08/08/24 09:00 Magnesium Oxide 400 Mg Tablet PO 400 mg DAILY EVE Administration Radiology Results: ITS Impressions Abdomen/Pelvis CT 08/07/24 23:53 IMPRESSION: 1. No evidence of appendicitis, diverticulitis or intestinal obstruction. 2. Slightly thickened wall of the first part of the duodenum which may indicate duodenitis. 3. Fecal impaction in the rectum. Labs Labs: Laboratory Results - last 24 hr 08/07/24 08/07/24 08/08/24 20:55 20:55 05:30 WBC 30.5 H 22.5 H RBC 3.94 L 3.53 L Hgb 10.7 L 9.6 L Hct 34.3 L 31.3 L MCV 87.1 88.7 MCH 27.2 27.2 MCHC 31.2 L 30.7 L RDW 14.1 14.3 Plt Count 295 278 MPV 9.1 9.2 Immature Gran % (Auto) 0.7 H 0.7 H Neut % (Auto) 91.0 H 84.1 H Lymph % (Auto) 2.4 L 9.6 L [place] % (Auto) 5.4 5.0 Eos % (Auto) 0.2 0.4 Baso % (Auto) 0.3 0.2 Lymph # (Auto) 0.74 L 2.17 [place] # (Auto) 1.7 H 1.1 H Eos # (Auto) 0.1 0.1 Baso # (Auto) 0.1 0.1 Abs Immat Gran (auto) 0.21 H 0.15 H Absolute Neuts (auto) 27.7 H 18.9 H Absolute Nucleated RBC 0.000 0.000 Band Neutrophils % Not Reportable Not Reportable Nucleated RBC % 0.0 0.0 Platelet Estimate Slightly increased Adequate Hypochromasia 1+ Ovalocytes 1+ Bite Cells 1+ Acanthocytes (Spur) 1+ 2+ Schistocytes None seen None seen PT 14.2 INR 1.1 APTT 27.4 Sodium 139 140 Potassium 3.5 3.5 Chloride 106 108 H Carbon Dioxide 24 23 Anion Gap 9 9 BUN 20 H D 13 D Creatinine 0.58 L 0.49 L Estim Creat Clear Calc 61 71 Estimated GFR > 60 > 60 Glucose 118 H 100 Lactic Acid 1.3 Calcium 9.6 9.2 Magnesium 1.7 1.8 Iron TIBC % Saturation Ferritin Total Bilirubin 0.8 0.6 AST 32 30 ALT 36 H 31 Alkaline Phosphatase 141 H 114 C-Reactive Protein 0.5 NT-Pro-B Natriuret Pep 151 H Cancelled Total Protein 8.0 7.0 Albumin 4.5 3.9 Vitamin B12 707.0 Folate 9.3 Procalcitonin 1.6 TSH (Reflex) 08/08/24 05:31 WBC RBC Hgb Hct MCV MCH MCHC RDW Plt Count MPV Immature Gran % (Auto) Neut % (Auto) Lymph % (Auto) [place] % (Auto) Eos % (Auto) Baso % (Auto) Lymph # (Auto) [place] # (Auto) Eos # (Auto) Baso # (Auto) Abs Immat Gran (auto) Absolute Neuts (auto) Absolute Nucleated RBC Band Neutrophils % Nucleated RBC % Platelet Estimate Hypochromasia Ovalocytes Bite Cells Acanthocytes (Spur) Schistocytes PT INR APTT Sodium Potassium Chloride Carbon Dioxide Anion Gap BUN Creatinine Estim Creat Clear Calc Estimated GFR Glucose Lactic Acid Calcium Magnesium Iron 29 L TIBC 348 % Saturation 8 L Ferritin 39.40 Total Bilirubin AST ALT Alkaline Phosphatase C-Reactive Protein NT-Pro-B Natriuret Pep Total Protein Albumin Vitamin B12 Folate Procalcitonin TSH (Reflex) 1.210 Quality VTE Prophylaxis VTE prophylaxis: pharmacologic ordered
[2024-08-08 09:55] LABS: Add Urine Microscopic? YES; Appearance Urine Clear (Clear); Bacteria Urine None Seen /hpf; Bilirubin Urine Negative (Negative); Blood Urine Trace (Negative); Color Urine Yellow (Yellow); Glucose Urine UA Negative (Negative); Ketones Urine Negative (Negative); Leukocyte Esterase Ur Trace LEU/UL (Negative); Nitrate Urine Negative (Negative); Non Pathogenic Casts 0-2; Protein Urine Negative (Negative); Specific Grav Ur 1.016 (1.001-1.035); Squamous Epithelial Cell Urine Occasional /hpf (Few); WBC Urine 0-5 /hpf (0-3)
[2024-08-08 10:15] LABS: IFOB Positive Control Positive; Immunochemical Fecal Occult Bl Negative (N)
[2024-08-08] MEDS: IRON SUCROSE COMPLEX 400 MG, IRON SUCROSE COMPLEX 100 MG in SODIUM CHLORIDE 0.9% IV 250 ML 78.57 MG IVPB (11:43)
--- NOTE | 2024-08-08 13:56 | PCRCNOTE ---
RT checked on patient about having a home bipap. Pt did not bring hers in and states she will be fine tonight without using the hospital's bipap. Pt knows if she changes her mind that our bipaps are available to her.
[2024-08-08 14:28] VITALS: BP 134/65; PULSE 80; RESP 17; TEMP 36.6; O2SAT 99
[2024-08-08 21:33] VITALS: BP 138/67; PULSE 74; RESP 16; TEMP 36.6; O2SAT 100
[2024-08-08] MEDS: ATORVASTATIN 40 MG TABLET 80 MG PO (21:35)
[2024-08-09 05:29] VITALS: BP 127/74; PULSE 74; RESP 16; TEMP 36.4; O2SAT 99
[2024-08-09 05:41] LABS: Basophils Absolute Auto 0.1 K/mm3 (0.0-0.1); Basophils Percent Auto 0.5 % (0.2-1.2); Eosinophils Absolute Auto 0.2 K/mm3 (0-0.3); Eosinophils Percent Auto 1.3 % (0-4.4); Hematocrit 34.5 % (37.0-47.0); Hemoglobin 10.1 g/dL (12.0-15.0); Immature Granulocyte Absolute 0.05 K/mm3 (0.00-0.031); Immature Granulocyte Percent A 0.4 % (0-0.5); Lymphocytes Percent Auto 12.7 % (18.3-44.2); Mean Corpuscular HGB Conc 29.3 g/dl (32-36); Mean Corpuscular Hemoglobin 26.7 pg (26-34); Mean Corpuscular Volume 91.3 fl (80-100); Mean Platelet Volume 9.6 fl (7.4-10.4); Monocytes Absolute Auto 0.8 K/mm3 (0.1-0.6); Monocytes Percent Auto 6.4 % (2.6-8.5); Neutrophils Absolute Auto 9.9 K/mm3 (1.3-6.7); Neutrophils Percent Auto 78.7 % (45.5-73.1); Platelet Count Result 283 k/mm3 (150-375); Red Blood Count 3.78 M/mm3 (4.2-5.4); Red Cell Distribution Width 14.6 % (11.5-14.5); White Blood Count 12.6 K/mm3 (4.5-10.0)
[2024-08-09 05:52] LABS: Alanine Aminotransferase 33 U/L (6-35); Albumin Level 4.1 g/dL (3.5-5.1); Alkaline Phosphatase 101 U/L (38-126); Anion Gap 10 mmol/L (4-12); Aspartate Amino Transferase 26 U/L (14-36); Bilirubin,Total 0.5 mg/dL (0.2-1.3); Blood Urea Nitrogen 10 mg/dL (7-17); Calcium 9.5 mg/dL (8.4-10.2); Carbon Dioxide 26 mmol/L (22-30); Chloride 107 mmol/L (98-107); Estimated CRCL calculation 69 ml/min; Estimated Glomerular Filt Rate > 60; Glucose 91 mg/dL (65-110); Magnesium 1.9 mg/dL (1.6-2.3); Potassium 3.7 mmol/L (3.4-5.0); Sodium 143 mmol/L (137-145)
[2024-08-09 06:04] LABS: Platelet Estimate Adequate (Adequate)
[2024-08-09 06:05] LABS: Acanthocytes 2+; Anisocytosis 1+; Burr Cells 1+; Poikilocytosis 2+
[2024-08-09 06:06] LABS: Schistocytes Rare
--- NOTE | 2024-08-09 07:33 | P.PNIM_ITS ---
Progress Note: A&P Assessment and Plan (1) Fever: Code(s): R50.9 - Fever, unspecified Status: Acute Assessment and Plan: Afebrile today and overnight -Pending urine culture -VSS since admission -WBC down considerably -Send home with empirical abx until culture results -->Macrobid (2) Fecal impaction: Code(s): K56.41 - Fecal impaction Status: Acute Assessment and Plan: Bowel regimen: -Dulcolax suppository given this AM after large BM, per pt request She was encouraged to follow-up with her primary care provider for possible GI referral; with her Pompe disease it is possible that an EGD or any other procedure, if deemed necessary, would need to be done at a tertiary care facility. (3) Pompe disease: Code(s): E74.02 - Pompe disease Status: Acute Assessment and Plan: Pt uses BIPAP at home for this, encouraged to bring her travel machine in due to her preferable route is nasal mask. (4) Normocytic anemia: Code(s): D64.9 - Anemia, unspecified Status: Acute Assessment and Plan: Abnormal iron panel today with an iron saturation of 8%. Total iron 29, TIBC WDL, ferritin WDL, MCV WDL, HGB 9.6 -Plan for Venofer infusion 500mg today and once more in the AM of 08/09 -Plan for pt to f/u with PCP at D/C for further management Plan -Trend labs on 08/09 AM to trend WBC -Venofer infusion 500mg 08/08 and 08/09 -Maintain hemodynamic status overnight -Continue IV abx this evening -Pending blood and urine culture - performed clean AM of 08/08 -Hopeful D/C 08/09 if remains hemodynamically stable Subjective Date/time seen: 08/09/24 Review of Systems Review of Systems: Twelve systems were reviewed. She has occasional rhinorrhea which is unchanged. She had a 4 vessel bypass done in 2020 and has lost about 30 lb since that time however weight has been pretty stable as she drinks Ensure multiple times a day however has been cutting back as she believes that it may be causing her some constipation. She endorses occasional discomfort in the left side of the abdomen which has been ongoing and intermittent issue. She wears what sounds like a trilogy unit or something similar at home due to respiratory muscle weakness as a result of Pompe. Except as documented, all other systems were reviewed and are negative. All systems reviewed & are unremarkable except as noted in HPI and below Objective Data Vital Signs Vital Signs: Vital Signs - 24 hr 08/08/24 09:00 08/08/24 14:28 08/08/24 21:33 Temperature 97.9 F 97.9 F Pulse Rate 80 74 Respiratory Rate 17 16 Blood Pressure 134/65 138/67 Pulse Oximetry 99 100 Oxygen Delivery Room Air 08/08/24 21:36 08/09/24 05:29 Temperature 97.5 F L Pulse Rate 74 Respiratory Rate 16 Blood Pressure 127/74 Pulse Oximetry 99 Oxygen Delivery Room Air Intake/Output Intake/Output: Intake & Output 08/06/24 08/07/24 08/08/24 08/09/24 23:59 23:59 23:59 23:59 Intake Total 1050 2690 340 Output Total 3 Balance 1050 2690 337 Meds/Results Medications: Active Medications Generic Name Dose Route Start Last Admin Trade Name Freq PRN Reason Stop Dose Admin Acetaminophen 650 mg 08/08/24 05:26 08/08/24 09:08 Acetaminophen 325 Mg Tablet PO 650 mg Q6H PRN Administration Mild Pain (1-3) or Fever Aspirin 81 mg 08/08/24 09:00 08/08/24 09:00 Aspirin 81 Mg Enteric Tablet PO 81 mg DAILY EVE Administration Atorvastatin Calcium 80 mg 08/08/24 21:00 08/08/24 21:35 Atorvastatin 40 Mg Tablet PO 80 mg HS EVE Administration Enoxaparin Sodium 40 mg 08/08/24 09:00 08/08/24 09:00 Enoxaparin 40 Mg/0.4 Ml Syringe SUB-Q 40 mg DAILY EVE Administration Ceftriaxone Sodium 1 gm in 50 mls @ 100 mls/hr 08/08/24 21:00 08/08/24 21:35 Rocephin 1 Gm/Ns 50 Ml IVPB 100 mls/hr Q24H EVE Administration Iron Sucrose 400 mg/ Iron 275 mls @ 78.571 mls/hr 08/09/24 10:00 Sucrose 100 mg/ Sodium IVPB 08/09/24 13:29 Chloride ONCE ONE Magnesium Oxide 400 mg 08/08/24 09:00 08/08/24 09:00 Magnesium Oxide 400 Mg Tablet PO 400 mg DAILY EVE Administration Radiology Results: ITS Impressions Abdomen/Pelvis CT 08/07/24 23:53 IMPRESSION: 1. No evidence of appendicitis, diverticulitis or intestinal obstruction. 2. Slightly thickened wall of the first part of the duodenum which may indicate duodenitis. 3. Fecal impaction in the rectum. Labs Labs: Laboratory Results - last 24 hr 08/08/24 08/08/24 08/09/24 09:39 09:40 05:15 WBC 12.6 H RBC 3.78 L Hgb 10.1 L Hct 34.5 L MCV 91.3 MCH 26.7 MCHC 29.3 L RDW 14.6 H Plt Count 283 MPV 9.6 Immature Gran % (Auto) 0.4 Neut % (Auto) 78.7 H Lymph % (Auto) 12.7 L Price % (Auto) 6.4 Eos % (Auto) 1.3 Baso % (Auto) 0.5 Lymph # (Auto) 1.60 Price # (Auto) 0.8 H Eos # (Auto) 0.2 Baso # (Auto) 0.1 Abs Immat Gran (auto) 0.05 H Absolute Neuts (auto) 9.9 H Absolute Nucleated RBC 0.000 Band Neutrophils % Not Reportable Nucleated RBC % 0.0 Platelet Estimate Adequate Poikilocytosis 2+ Anisocytosis 1+ [place] Cells 1+ Acanthocytes (Spur) 2+ Schistocytes Rare Sodium 143 Potassium 3.7 Chloride 107 Carbon Dioxide 26 Anion Gap 10 BUN 10 Creatinine 0.51 L Estim Creat Clear Calc 69 Estimated GFR > 60 Glucose 91 Calcium 9.5 Magnesium 1.9 Total Bilirubin 0.5 AST 26 ALT 33 Alkaline Phosphatase 101 Total Protein 7.0 Albumin 4.1 Urine Color Yellow Urine Appearance Clear Urine pH 6.0 Ur Specific [place] 1.016 Urine Protein Negative Urine Glucose (UA) Negative Urine Ketones Negative Ur Blood (Man) Trace Urine Nitrate Negative Urine Bilirubin Negative Urine Urobilinogen 1.0 Ur Leukocyte Esterase Trace H Urine RBC 3-5 H Urine WBC 0-5 Ur Squamous Epith Cells Occasional Urine Bacteria None seen Urine Casts 0-2 Stl Occult Blood (IFOB) Negative Quality VTE Prophylaxis VTE prophylaxis: pharmacologic ordered
--- NOTE | 2024-08-09 08:53 | PM.DS ---
DS: Admitting Diagnosis Discharge Date 08/09/2024 Admitting Diagnosis Fecal impaction, fever DS: Discharge Diagnosis Discharge Diagnosis (1) Fever: Code(s): R50.9 - Fever, unspecified Status: Acute Assessment and Plan: Afebrile since admission. -Pending urine culture -Blood cultures negative -VSS since admission -WBC down considerably -Send home with empirical abx until culture results -->Keflex 500mg PO BID x5 days (2) Fecal impaction: Code(s): K56.41 - Fecal impaction Status: Acute Assessment and Plan: Bowel regimen: -Dulcolax suppository given yesterday AM after large BM, per pt request -Pt reports several formed BMs since yesterday She was encouraged to follow-up with her primary care provider for possible GI referral; with her Pompe disease it is possible that an EGD or any other procedure, if deemed necessary, would need to be done at a tertiary care facility. (3) Pompe disease: Code(s): E74.02 - Pompe disease Status: Acute Assessment and Plan: Pt uses BIPAP at home for this, encouraged to bring her travel machine in due to her preferable route is nasal mask. (4) Normocytic anemia: Code(s): D64.9 - Anemia, unspecified Status: Acute Assessment and Plan: Abnormal iron panel today with an iron saturation of 8%. Total iron 29, TIBC WDL, ferritin WDL, MCV WDL, HGB 9.6 -Plan for Venofer infusion 500mg 08/08 and 08/09 -Plan for pt to f/u with PCP at D/C for further management DS: Summary Hospital Course Reason for hospitalization: Fecal impaction, fever Hospital Course: 73-year-old female with a history of stroke, coronary artery disease, hypertension, hyperlipidemia, and Pomnpe disease came to the emergency department from urgent care for fever and chills that started on 08/07. Continues to complain of mild dysuria but denies any other symptoms. When she was at urgent care she reported that her temperature was almost 102° F and her urine showed trace nitrites but negative for leukocytes. When she got to the emergency department here, her pulse was tachycardic in the 120s and she was mildly tachypneic 22 RR. Her white blood cell count in the ED was 30.5 here but has since decreased significantly to 12.6 today. Patient has been hemodynamically stable since admission. CT of the abdomen and pelvis showed slightly thickened wall of the 1st part of the duodenum which may indicate duodenitis and fecal impaction in the rectum.. Patient denying abdominal pain. She was given ceftriaxone 1 g with a suspected UTI. Pending urine culture results. Will be sent home Keflex x4 days, will follow culture. Patient ended up having large bowel movement yesterday morning. Patient also found to have a low iron saturation of 8%, x2 500 mg Venofer infusions were given while inpatient, to follow up with primary care provider. Status at Discharge Cognitive/behavioral status at discharge: A&Ox4 Functional status at discharge: independent ambulation Overall status at discharge: patient is back to baseline Time Spent with Patient Time attestation: Total time spent providing and/or coordinating discharge services: Time spent: Less than 30 minutes Exam Const: General: comfortable and no acute distress HENMT: Face/Nose/Sinus: Normal nares present Mouth: Yes moist mucous membranes Eyes: General: appearance normal, both eyes and all related structures Sclera: sclerae normal Neck: Neck: supple and no JVD Carotids: no bruits Resp: Effort & Inspection: normal respiratory effort Auscultation: clear to auscultation bilaterally Cardio: Rate: regular rate Rhythm: regular rhythm GI: Inspection: non-distended GI Palp: Yes Soft to palpation and No Tenderness to palpation present (GI) Skin: General skin exam: normal color and no rashes or lesions noted Wounds: no wounds Neuro: Motor exam (neuro): Normal motor muscle tone present throughout Sensory Exam: normal sensation Extrem: General: normal to inspection Psych: Mental Status: mental status grossly normal Affect: normal affect DS: Data Data Completed and Pending Completed studies during hospitalization: CXR, a/p CT Pending studies at discharge: Urine culture Labs on day of discharge: Labs from last 24 hours 08/09/24 08/08/24 08/08/24 05:15 09:40 09:39 WBC 12.6 H RBC 3.78 L Hgb 10.1 L Hct 34.5 L MCV 91.3 MCH 26.7 MCHC 29.3 L RDW 14.6 H Plt Count 283 MPV 9.6 Immature Gran % (Auto) 0.4 Neut % (Auto) 78.7 H Lymph % (Auto) 12.7 L [place] % (Auto) 6.4 Eos % (Auto) 1.3 Baso % (Auto) 0.5 Lymph # (Auto) 1.60 [place] # (Auto) 0.8 H Eos # (Auto) 0.2 Baso # (Auto) 0.1 Abs Immat Gran (auto) 0.05 H Absolute Neuts (auto) 9.9 H Absolute Nucleated RBC 0.000 Band Neutrophils % Not Reportable Nucleated RBC % 0.0 Platelet Estimate Adequate Poikilocytosis 2+ Anisocytosis 1+ [place] Cells 1+ Acanthocytes (Spur) 2+ Schistocytes Rare Sodium 143 Potassium 3.7 Chloride 107 Carbon Dioxide 26 Anion Gap 10 BUN 10 Creatinine 0.51 L Estim Creat Clear Calc 69 Estimated GFR > 60 Glucose 91 Calcium 9.5 Magnesium 1.9 Total Bilirubin 0.5 AST 26 ALT 33 Alkaline Phosphatase 101 Total Protein 7.0 Albumin 4.1 Urine Color Yellow Urine Appearance Clear Urine pH 6.0 Ur Specific [place] 1.016 Urine Protein Negative Urine Glucose (UA) Negative Urine Ketones Negative Ur Blood (Man) Trace Urine Nitrate Negative Urine Bilirubin Negative Urine Urobilinogen 1.0 Ur Leukocyte Esterase Trace H Urine RBC 3-5 H Urine WBC 0-5 Ur Squamous Epith Cells Occasional Urine Bacteria None seen Urine Casts 0-2 Stl Occult Blood (IFOB) Negative Preliminary micro results at discharge 08/07/24 20:55 Blood Culture - Preliminary Blood 08/07/24 20:55 Blood Culture - Preliminary Blood Discharge Plan Discharge Attending physician on discharge: Benita Rizvi Discharging Clinician: Benita Rizvi Patient Disposition: Home Activity: august shower Diet: heart healthy Patient Instructions: Antibiotic Form, Iron Deficiency Anemia (GEN), Fecal Impaction (GEN) Patient Language: Hungarian Stand Alone Forms: General Discharge Information Follow-up/Referrals: Harjit Santos MD [Primary Care Provider] - 2 Weeks (Update on admission, follow-up care for normocytic anemia with need for iron infusion inpatient.) Discharge Medications: New cephalexin 500 mg capsule 500 mg PO Q12H 5 Days Qty: 10 0RF Continued aspirin [Adult Aspirin Regimen] 81 mg tablet,delayed release (DR/EC) 81 mg PO DAILY acetaminophen [Tylenol] 325 mg tablet 325 mg PO Q6H PRN (Reason: fever or pain) atorvastatin 80 mg tablet 80 mg PO DAILY Qty: 90 0RF Rx Instructions: cardio Nexviazyme 100 mg recon soln 1,089 mg IV ONCE Qty: 1 0RF Patient Comments: every other saturday Rx Instructions: infusion for Pompee's disease magnesium 250 mg tablet 500 mg PO DAILY Discontinued acetaminophen [Acetaminophen Extra Strength] 500 mg tablet 500 mg PO QAM Date of admission: 08/07/24 22:25 Primary Care Provider: Harjit Santos Admitting Provider: Stefano Spencer Attending physician on admission: Stefano Spencer Condition: Stable Quality VTE Prophylaxis VTE prophylaxis: pharmacologic ordered Hospitalist MIPS Heart Failure (Exclusion) Patient has history of Heart Transplant or Left Ventricular Assistive Device?: No IF YES, STOP HERE Heart Failure (Qualifier) Patient has current or prior documentation of LVEF less than or equal to 40%, or mod/servere depressed LVSF?: No IF NO, STOP HERE
[2024-08-09] MEDS: ACETAMINOPHEN 325 MG TABLET 650 MG PO (09:36)
[2024-08-09] MEDS: MAGNESIUM OXIDE 400 MG TABLET PO (09:36)
[2024-08-09] MEDS: ASPIRIN 81 MG ENTERIC TABLET PO (09:36)
[2024-08-09] MEDS: IRON SUCROSE COMPLEX 400 MG, IRON SUCROSE COMPLEX 100 MG in SODIUM CHLORIDE 0.9% IV 250 ML 78.57 MG IVPB (09:38)
--- NOTE | 2024-08-11 08:10 | PC.NURSE ---
Urine cx is negative. JIM Block aware.
== END 2024-08-09 15:17 | disposition home or self-care (01) | DRG 690 ==
LOC: ANHED 22:28 → ANH3MED 23:22
PROVIDERS: Physician Assistant; Admitting Provider Internal Medicine; Emergency Provider Emergency Medicine; PCP Family Medicine
DX: N39.0 Urinary tract infection, site not specified (principal); E74.02 Pompe disease; K56.41 Fecal impaction; R50.9 Fever, unspecified; G47.33 Obstructive sleep apnea (adult) (pediatric); D64.9 Anemia, unspecified; E78.5 Hyperlipidemia, unspecified; I10 Essential (primary) hypertension; I25.10 Atherosclerotic heart disease of native coronary artery without angina pectoris; M19.90 Unspecified osteoarthritis, unspecified site; Z20.822 Contact with and (suspected) exposure to COVID-19; Z86.73 Personal history of transient ischemic attack (TIA), and cerebral infarction without residual deficits; Z96.643 Presence of artificial hip joint, bilateral; Z96.659 Presence of unspecified artificial knee joint; Z90.49 Acquired absence of other specified parts of digestive tract; Z95.1 Presence of aortocoronary bypass graft
CPT/HCPCS: 36415; 71046; 74177; 80053; 81001; 81003; 82274; 82607; 82728; 82746; 83540; 83550; 83605; 83735; 83880; 84145; 84443; 85025; 85610; 85730; 86140; 87040; 87077; 87086; 87186; 87426; 87804; 93005; 96365; 99213; 99285; A9270; G0463; J0696; J1650; J1756; J7030; J7050; Q9967

== ENCOUNTER 2024-10-05 12:57 | Outpatient (CLI) | payer MEDICARE, SELFPAY ==
--- NOTE | ~2024-10-05 | XR_ITS ---
Left elbow Technique: AP, oblique, and lateral views were obtained. Clinical History: Pain Findings: No acute fracture or dislocation is seen. Osseous alignment is anatomic. Joint spaces are p reserved. There is no displacement of the fat pads, and soft tissues are unremarkable. Impression: Unremarkable radiographs. Reviewed, dictated and finalized at location . Impression: Unremarkable radiographs.
--- OUTSIDE RECORDS SUMMARY | 2024-10-05 13:12 | XMS_ITS | Clinical Summary ---
Author Organization [facility] [address] Address [address] [place] [address] Care Team Providers Care System Safety Engineer Name Role Phone Harjit Santos MD Primary Care Provider [phone] Sylvester Patrick MD Unavailable Sudeep Prajapati MD Unavailable Allergies Active Allergy Reactions Criticality Noted Date Comments Codeine Shortness of breath,Nausea only,Rash High Reaction: Short of breath, Sulfa (Sulfonamide Antibiotics) Rash Medium 04/14/2022 Reaction: Rash, Reaction: Rash, Reaction: Rash, Medications cholecalciferol (VITAMIN D-3) 400 unit capsule Active cetirizine (ZyrTEC) 10 mg tabletIndicatio ns:Allergic Rhinitis Take 1 tablet (10 mg total) by mouth daily Active escitalopram (LEXAPRO) 10 mg tablet Take 1 tablet (10 mg total) by mouth daily 04/30/2023 Active magnesium oxide 500 mg capsule Take 500 mg by mouth nightly Active cyanocobalamin, vitamin B-12, 5,000 mcg tablet, sublingual Place 5,000 mcg under the tongue every 30 (thirty) days Active acetaminophen (TYLENOL) 500 mg tablet Take 1 tablet (500 mg total) by mouth every 6 (six) hours as needed for pain Active aspirin 81 mg enteric coated tablet Take 1 tablet (81 mg total) by mouth daily 90 tablet 11 08/19/2024 Active atorvastatin (LIPITOR) 80 mg tablet TAKE 1 TABLET(80 MG) BY MOUTH EVERY NIGHT 30 tablet 11 08/24/2024 Active Active Problems Problem Noted Date Diagnosed Date 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 Pompe disease 05/23/2022 Left leg pain 09/25/2021 Balance disorder 09/25/2021 S/P CABG x 4 02/03/2021 Coronary artery disease invo lving [place] heart without angina pectoris 01/24/2021 Overview (01/26/2021): Added automatically from request for surgery [id number] Hypertension 11/06/2012 Shortness of breath 11/06/2012 Hypercholesterolemia 11/06/2012 Encounters Date Type Department Care Team Description 09/22/2024 Orders Only [facility] and [facility] Medicine [address] [place] [address] [address] [place] [address] Ammon Langford MD Nondisplaced fracture of greater trochanter of right femur, initial encounter for closed fracture (HCC) (Primary Dx) 09/22/2024 Telephone [facility] [address] [place] [address] [address] [place] [address] Ammon Langford MD 08/19/2024 10:15 AM CDT Office Visit [facility] Cardiology [address] [place] [address] Fred Meyers MD Coronary artery disease involving [place] coronary artery of [place] heart without angina pectoris (Primary Dx); S/P CABG x 4; History of non-ST elevation myocardial infarction (NSTEMI); Primary hypertension from Last 3 Months Immunizations Immunization Administration [...] on file Legal Sex Female 12:17 AM NEGATIVE NOTCHER Gender Identity Not on file Sexual Orientation Not on file Obstetrics History Last Filed Vital Signs Vital Sign Reading Time Taken Comments Blood Pressure 112/70 08/19/2024 10:30 AM CDT Pulse 79 08/19/2024 10:30 AM CDT Temperature 36.7 C (98 F) 06/05/2022 8:14 AM NEGATIVE NOTCHER Respiratory Rate 18 05/03/2022 11:29 AM NEGATIVE NOTCHER Oxygen Saturation 98% 08/19/2024 10:30 AM CDT Inhaled Oxygen Concentration - - Weight 53.1 kg (117 lb) 08/19/2024 10:30 AM CDT Height 160 cm (5' 3) 08/19/2024 10:30 AM CDT Body Mass Index 20.73 08/19/2024 10:30 AM CDT Plan of Treatment Health Maintenance [...] season) 2023 01/06/2021, 05/31/2020, 05/08/2020 Influenza Vaccine (Season Ended) 2024 12/14/2020, 12/14/2020, 12/10/2018, Additional history exists Procedures Procedure Name Priority Date/Time Associated Diagnosis Comments POCT LIPID PANEL Routine 08/19/2024 10:2 2 AM CDT Coronary artery disease involving [place] coronary artery of [place] heart without angina pectoris from Last 3 Months Results * (ABNORMAL) POCT lipid panel (08/19/2024 10:22 AM CDT) Cholesterol, POC 110 <200 MG/DL HDL, POC 36(A) >=40 mg/dL Triglycerides, POC 172(A) <=149 mg/dL LDL Cholesterol POC 40 <=129 mg/dL Chol/HDL Ratio, POC 1.1 NONE Non-HDL Cholesterol, POC 75 NONE mg/dL Cholesterol Total, POC 110 30 - 199 mg/dL Capillary blood 08/19/2024 1 0:22 AM CDT Fred Meyers MD POINT OF CARE TEST ORDERABLES Fi nal Result from Last 3 Months Insurance [facility] MEDICARE ADVANTAGE [facility] MEDICARE Address: [address] [address] [place] [address] COMMERCIAL GENERIC MEDICARE MEDICARE COMM[facility]CIAL GENERIC [facility] MEDICARE Address: [address] [address] [place] [address] MEDICARE COMMERCIAL GENERIC Advance Directives For more information, please contact: [phone] * Full Code (Latest Code Status on File) Date Activated Date Inactivated Comments 02/03/2021 7:58 PM 02/14/2021 5:13 PM * Full Code Date Activated Date Inactivated Comments 01/25/2021 8:58 AM 02/03/2021 7:39 PM Care Teams System Safety Engineer Relationship Specialty Start Date End Date Harjit Santos MD PCP - General Family Medicine 03/09/21 Sylvester Patrick MD [address] [place] [address] [address] [place] [address] Referring Physician Neurology 06/05/22 Sudeep Prajapati MD [address] [facility] NEUROLOGY SLEEP [facility] [address] [place] [address] Consulting Physician Sleep Medicine 04/29/23
--- OUTSIDE RECORDS SUMMARY | 2024-10-05 13:12 | XMS_ITS | Encounter Summary ---
Author Organization [facility] Address [address] [place] [address] Care Team Providers Care Table Hand Name Role Phone Harjit Santos MD Primary Care Provider Sylvester Patrick MD Unavailable Sudeep Prajapati MD Unavailable Encounter Details Date Type Department Care Team (Late st Contact Info) Description 09/22/2024 Telephone [facility] Orthopedics and Sports Medicine [address] [place] [address] [address] [place] [address] Ammon Langford MD [address] [place] [address] [address] [place] [address] Social History Tobacco Use Types Packs/Day Years Used Date Smoking Tobacco: Never OASIS D0700: Social Isolation Answer Da te [...] on file Legal Sex Female 12:17 AM REGIONAL 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 Gender Identity Not on file Sexual Orientation Not on file documented as of this encounter Miscellaneous Notes * Telephone Encounter - Rosalinda Murillo - 09/22/2024 2:18 PM CDT Janell at [facility] is requesting a continuation of therapy for rt femur fx [phone] documented in this encounter Plan of Treatment Not on file documented as of this encounter Visit Diagnoses Not on filedocumented in this encounter Care Teams Table Hand Relationship Specialty Start Date End Date Harjit Santos MD PCP - General Family Medicine 03/09/21 Sylvester Patrick MD [address] [place] [address] [address] [place] [place], [place] [id number] Referring Physician Neurology 06/05/22 Sudeep Prajapati MD [address] [facility] NEUROLOGY SLEEP [facility] [address] [place] [address] Consulting Physician Sleep Medicine 04/29/23 documented as of this encounter
--- OUTSIDE RECORDS SUMMARY | 2024-10-05 13:12 | XMS_ITS | Clinical Summary ---
Author Organization [facility] Address [address] [address] Phone Care Team Providers Care Senior Computer Specialist Name Role Phone Huma Candelario MD Primary Care Provider [phone] Allergies Active Allergy Reactions Criticality Noted Date [...] 2:15 PM CDT Height 160 cm (5' 3) 01/07/2019 2:15 PM CDT Body Mass Index 24.98 01/07/2019 2:15 PM CDT Plan of Treatment Health Maintenance Due Date Last Done Comments Hepatitis C Virus (HCV) Screening 1950 TdaP Immunization 1950 Cologuard 09/11/1996 Colonoscopy 09/11/1996 Colorectal Cancer Screening 09/11/1996 Immunochemical Fecal Occult Blood 09/11/1996 Zoster Immunization (1 of 2) 09/11/2001 Pneumococcal Immunization (50+ years) (2 of 2 - PCV) 12/17/2018 12/17/2017 SARS-COV-2 Immunization ( season) 2023 01/06/2021, 05/31/2020, 05/08/2020 Influenza Immunization (Season Ended) 2024 12/14/2020, 12/14/2020, 12/10/2018, Additional history exists Respiratory Syncytial Virus (RSV) Immunization (Adult) (1 - 1-dose 75+ series) 09/11/2026 Pneumococcal Immunization Combined Discontinued 12/17/2017 Hepatitis B Immunization Aged Out No longer eligible based on patient's age to complete this topic Human Papillomavirus (HPV) Immunization Aged Out No longer eligible based on patient's age to complete this topic Meningococcal Immunization (ACWY) Aged Out No longer eligible based on patient's age to complete this topic Rotavirus Immunization Aged Out No lo nger eligible based on patient's age to complete this topic Insurance MEDICARE COMMERCIAL GENERIC Care Teams Senior Computer Specialist Relationship Specialty Start Date End Date Huma Candelario MD PCP - General Family Medicine 09/04/17
--- OUTSIDE RECORDS SUMMARY | 2024-10-05 13:12 | XMS_ITS | Clinical Summary ---
Author Organization [facility] Address [address] [place] [address] Care Team Providers Care Ror Engineer Name Role Phone Harjit Santos MD Primary Care Provider [phone] Source Comments [facility],non-owned Affiliates and Associated Physician Practices is amultiple site organization consisting of ambulatory clinics and hospital sitesin [place], [place], [place] and [place]. This disclosure is being madepursuant to the Care Everywhere program and may not contain all information available regarding this patient. Last updated 17.[facility] Allergies Active Allergy Reactions Criticality Noted Date Comments Codeine Nausea and/or Vomiting,Rash,Shortness of Breath High 04/14/2022 Reaction: Short of breath, Reaction: Short of breath, Sulfa Antibiotics Rash Medium 04/14/2022 Reaction: Rash, Sulfa Drugs Rash Medium 04/14/2022 Reaction: Rash, Reaction: Rash, Reaction: Rash, Sulfacetamide Rash Medium 09/04/2024 Medications * Be aware that medications may [...] tablet by mouth daily with food Active nitrofurantoin monohyd macro crystals (Macrobid) 100 MG capsule Take 1 (one) capsule by mouth every 12 hours 5 Active Active Problems Problem Noted Date Diagnosed Date Meralgia paraesthetica, left 09/04/2024 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 Pompe disease 05/23/2022 Abnormality of gait due to impairment of balance 04/27/2022 FONSECA (dyspnea on exertion) 04/27/2022 Left leg weakness 04/27/2022 Encounters Date Type Department Care Team Description 09/04/2024 10:30 AM CDT - 09/04/2024 11:59 PM CDT Hospital Encounter [facility] Imaging Services - Radiology [address] [place] [address] Discharge Disposition: Home or Self Care 09/04/2024 9:20 AM CDT Office Visit [facility] Neurosciences [address] [place] [phone] Sylvester Patrick MD Pompe disease (HCC) (Primary Dx); Neuromuscular respiratory weakness (HCC); Chronic left shoulder pain; Meralgia paraesthetica, left 09/04/2024 Results Follow-Up [facility] Neurosciences [address] [place] [phone] Sylvester Patrick MD 09/04/2024 Travel 08/10/2024 Telephone [facility] Neurosciences [address] [facility] [address] [place] [address] Sylvester Patrick MD Infusion from Last 3 Months Family History Medical History Relation Name Comments [...] on file Legal Sex Female 11:14 AM BURNER MACHINE OPERATOR Gender Identity Not on file Sexual Orientation Not on file Last Filed Vital Signs Vital Sign Reading Time Taken Comments Blood Pressure 127/63 09/04/2024 9:15 AM CDT Pulse 70 09/04/2024 9:15 AM CDT Temperature 36.2 C (97.2 F) 01/16/2023 11:46 AM CDT Respiratory Rate 16 01/16/2023 11:11 AM CDT Oxygen Saturation 99% 01/16/2023 11:11 AM CDT Inhaled Oxygen Concentration - - Weight 53.1 kg (117 lb) 09/04/2024 9:15 AM CDT Height 162.6 cm (5' 4) 09/04/2024 9:15 AM CDT Body Mass Index 20.08 09/04/2024 9:15 AM CDT Plan of Treatment Upcoming Encounters Date Type Department Care Team (Late st Contact Info) Description 02/12/2025 11:00 AM BURNER MACHINE OPERATOR Office Visit [facility]sciences [address] [facility] [address] [place] [phone] Sylvesetr Patrick MD [address] [facility] [address] [place] [address] Health Maintenance Due Date Last Done [...] 60-74 years 1-dose series) 2011 COVID-19 VACCINE (1 - season) 2023 DEPRESSION SCREENING 04/08/2024 08/01/2022 [...] on patient's age to complete this topic Procedures Procedure Name Priority Date/Time Associated Diagnosis Comments XR SHOULDER LEFT 2VW OR MORE Routine 09/04/2024 10:51 AM CDT Chronic left shoulder pain from Last 3 Months Results * XR Shoulder Left 2Vw or More (09/04/2024 10:51 AM CDT) Anatomical Region Laterality Modality Upper Extremity Computed Radiogr aphy 09/04/2024 11:1 1 AM CDT Impressions 09/04/2024 11:12 AM CDT IMPRESSION: No significant degenerative change of the left glenohumeral joint. Old fracture deformity of proximal left humerus. > Interpreting Provider: Peng Wellington MD on 09/04/2024 11:12 AM Narrative 09/04/2024 11:12 AM CDT PROCEDURE: XR SHOULDER LEFT 2VW OR MORE DATE/TIME OF EXAM: 09/04/2024 10:55 AM CLINICAL INFORMATION: None relevant/not provided if blank. Indication: M25.512: Pain in left shoulder G89.29: Other chronic pain Additional History: COMPARISON: None. FINDINGS: 3 view examination of the left shoulder demonstrates generalized osteopenia. There is an old fracture deformity of the proximal third of the left humerus. Left glenohumeral joint appears well preserved without narrowing osteophyte formation or bone erosion. Left AC joint is unremarkable. Procedure Note Peng Wellington MD - 09/04/2024 PROCEDURE: XR SHOULDER LEFT 2VW OR MORE DATE/TIME OF EXAM: 09/04/2024 10:55 AM CLINICAL INFORMATION: None relevant/not provided if blank. Indication: M25.512: Pain in left shoulder G89.29: Other chronic pain Additional History: COMPARISON: None. FINDINGS: 3 view examination of the left shoulder demonstrates generalized osteopenia. There is an old fracture deformity of the proximal third ofthe left humerus. Left glenohumeral joint appears well preserved without narrowing osteophyte formation or bone erosion. Left AC joint is unremarkable. IMPRESSION: No significant degenerative change of the left glenohumeral joint. Old fracture deformity of proximal left humerus. > Interpreting Provider: Peng Wellington MD on 09/04/2024 11:12 AM Sylvester Patrick MD DIAGNOSTIC IMAGING ORDERABLES Fi nal Result from Last 3 Months Insurance MEDICARE MEDICARE SUPPLEMENT PAYOR GENERIC Care Teams Ror Engineer Relationship Specialty Start Date End Date Harjit Santos MD [address] [place] [address] PCP - General Family Medicine 04/27/22
--- OUTSIDE RECORDS SUMMARY | 2024-10-05 13:12 | XMS_ITS | Referral Summary ---
Author Organization [facility] [address] [facility] [address] Address [address] [place] [address] Care Team Providers Care Library Clerk Name Role Phone Harjit Santos MD Primary Care Provider Sylvester Patrick MD Unavailable Sudeep Prajapati MD Unavailable Encounters Date Type Department Care Team Description 09/22/2024 Orders Only [facility] Orthopedics and Sports Medicine [address] [facility] [address] [place] [phone] Ammon Langford MD Nondisplaced fracture of greater trochanter of right femur, initial encounter for closed fracture (HCC) (Primary Dx) 09/22/2024 Telephone [facility] Orthopedics and Sports Medicine [address] [facility] [address] [place] [phone] Ammon Langford MD 08/19/2024 10:15 AM CDT Office Visit [facility] Medical Group Cardiology [address] [place] [address] Fred Meyers MD Coronary artery disease involving [place] coronary artery of [place] heart without angina pectoris (Primary Dx); S/P CABG x 4; History of non-ST elevation myocardial infarction (NSTEMI); Primary hypertension from Last 3 Months Allergies Active Allergy [...] 4 02/03/2021 Coronary artery disease invo lving ch[place]im[place] heart without angina pectoris 01/24/2021 Overview (01/26/2021): Added automatically from request for surgery [id number] Hypertension 11/06/2012 Shortness of breath 11/06/2012 Hypercholesterolemia [...] on file Legal Sex Female 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 Gender Identity Not on file Sexual Orientation Not on file Last Filed Vital Signs Vital Sign Reading Time Taken Comments Blood Pressure 112/70 08/19/2024 10:30 AM CDT Pulse 79 08/19/2024 10:30 AM CDT Temperature 36.7 C (98 F) 06/05/2022 8:14 AM CHARTERED WEALTH MANAGER Respiratory Rate 18 05/03/2022 11:29 AM CHARTERED WEALTH MANAGER Oxygen Saturation 98% 08/19/2024 10:30 AM CDT Inhaled Oxygen Concentration - - Weight 53.1 kg (117 lb) 08/19/2024 10:30 AM CDT Height 160 cm (5' 3) 08/19/2024 10:30 AM CDT Body Mass Index 20.73 08/19/2024 10:30 AM CDT Plan of Treatment Not on file Procedures Procedure Name Priority Date/Time Associated Diagnosis Comments POCT LIPID PANEL Routine 08/19/2024 10:2 2 AM CDT Coronary artery disease involving ch[place] coronary artery of chit[place] heart without angina pectoris from Last 3 [...] nal Result from Last 3 Months Insurance [facility] MEDICARE ADVANTAGE [facility] MEDICARE Address: [address] [address] [place] [address] COMMERCIAL GENERIC MEDICARE MEDICARE COMMERCIAL GENERIC [facility] MDCR HMO REF [facility] MEDICARE Address: [address] [address] [place] [address] MEDICARE COMMERCIAL GENERIC Advance Directives For more information, please contact: [phone] * Full Code (Latest Code Status on File) Date Activated Date Inactivated Comments 02/03/2021 7:58 PM 02/14/2021 5:13 PM * Full Code Date Activated Date Inactivated Comments 01/25/2021 8:58 AM 02/03/2021 7:39 PM Care Teams Library Clerk Relationship Specialty Start Date End Date Harjit Santos MD PCP - General Family Medicine 03/09/21 Sylvester Patrick MD [facility] [address] [place] [address] Referring Physician Neurology 06/05/22 Sudeep Prajapati MD [address] [facility] NEUROLOGY SLEEP [facility] [address] [place] [address] Consulting Physician Sleep Medicine 04/29/23
--- OUTSIDE RECORDS SUMMARY | 2024-10-05 13:12 | XMS_ITS | Encounter Summary ---
Author Organization [facility] Address [address] [place] [address] Care Team Providers Care Tailor Fitter Name Role Phone Harjit Santos MD Primary Care Provider [phone] Encounter Details Date Type Department Care Team (Late Contact Info) Description 09/04/2024 Results Follow-Up [facility] [address] [facility] [address] [place] [address] Sylvester Patrick MD [address] [place] [address] Social History Tobacco Use Types Packs/Day Years Used Date Smoking Tobacco: Never Passive Smoke Exposure: Never Smokeless Tobacco: Never Alcohol Use Standard Drinks/Week Comments Never 0 (1 standard drink = 0.6 oz pur e alcohol) PHQ-2 Answer Date Recorded Patient Health Questionnaire-2 Score 0 01/02/2023 Comments Unknown Sex and Gender Information Value Date Recorded Sex Assigned at Not on file Legal Sex Female 11:14 AM 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 ENGINE TESTER Gender Identity Not on file Sexual Orientation Not on file documented as of this encounter Plan of Treatment Upcoming Encounters Date Type Department Care Team (Late Contact Info) Description 02/12/2025 11:00 AM DIESEL ENGINE TESTER Office Visit [facility] [address] [facility] [address] [place] [address] Sylvester Patrick MD [address] [place] [address] documented as of this encounter Visit Diagnoses Not on filedocumented in this encounter Care Teams Tailor Fitter Relationship Specialty Start Date End Date Harjit Santos MD [address] [place] [address] PCP - General Family Medicine 04/27/22 documented as of this encounter
== END 2024-10-05 12:58 | disposition home or self-care (01) ==
PROVIDERS: PCP Family Medicine; Visit Provider Orthopaedic Surgery
DX: M25.522 Pain in left elbow (principal)
CPT/HCPCS: 73080

== ENCOUNTER 2024-10-30 11:07 | Emergency (ER) | payer MEDICARE, SELFPAY ==
--- OUTSIDE RECORDS SUMMARY | 2024-10-30 11:11 | XMS_ITS | Clinical Summary ---
Author Organization [facility] Address [address] [address] Phone Care Team Providers Care Screedman Name Role Phone Huma Candelario MD Primary [...] 2 - PCV) 12/17/2018 12/17/2017 SARS-COV-2 Immunization (2023- season) 2023 01/06/2021, 05/31/2020, 05/08/2020 Influenza Immunization (#1) 12/07/202411/2020, 12/14/2020, 12/10/2018, Additional history exists Respiratory Syncytial [...] topic Insurance MEDICARE COMMERCIAL GENERIC Care Teams Screedman Relationship Specialty Start Date End Date Huma Candelario MD PCP - General Family Medicine 09/04/17
--- OUTSIDE RECORDS SUMMARY | 2024-10-30 11:11 | XMS_ITS | Referral Summary ---
Author Organization [facility] [address] [facility] [address] Address [address] [place] [address] Care Team Providers Care Attending Urologist Name Role Phone Harjit Santos MD Primary Care Provider Sylvester Patrick MD Unavailable Sudeep Prajapati MD Unavailable Encounters Date Type Department Care Team Description 10/28/2024 10:30 AM CDT Telemedicine [facility] [address] [facility] 6th Floor [address] [place] [address] Sudeep Prajapati MD 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); Pompe disease (HCC) 10/21/2024 Documentation [facility] [address] [facility] 6th Floor [address] [place] [address] Riya Luo RN 09/22/2024 Orders Only [facility] Orthopedics and Sports Medicine [address] [facility] [address] [place] [phone] Ammon Langford MD Nondisplaced fracture of greater trochanter of right femur, initial encounter for closed fracture (HCC) (Primary Dx) 09/22/2024 Telephone [facility] Orthopedics and Sports Medicine [address] [facility] [address] [place] [phone] Ammon Langford MD 08/19/2024 10:15 AM CDT Office Visit [facility] Cardiology [address] [place] [address] Fred Meyers MD Coronary artery disease involving chilkoot coronary artery of chilkoot heart without angina pectoris (Primary Dx); S/P [...] 4 02/03/2021 Coronary artery disease invo lving chilkoot heart without angina pectoris 01/24/2021 Overview (01/26/2021): Added automatically from request for surgery [id number] Hypertension 11/06/2012 Shortness of breath 11/06/2012 Hypercholesterolemia [...] on file 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 Gender Identity Not on file Sexual Orientation Not on file Last Filed Vital Signs Vital Sign Reading Time Taken Comments Blood Pressure 112/70 08/19/2024 10:30 AM CDT Pulse 79 08/19/2024 10:30 AM CDT Temperature 36.7 C (98 F) 06/05/2022 8:14 AM WATER FILTER CLEANER Respiratory Rate 18 05/03/2022 11:29 AM WATER FILTER CLEANER Oxygen Saturation 98% 08/19/2024 10:30 AM CDT Inhaled Oxygen Concentration - - Weight 55.8 kg (123 lb) 10/28/2024 10:46 AM CDT Height 160 cm (5' 3) 10/28/2024 10:46 AM CDT Body Mass Index 21.79 10/28/2024 10:46 AM CDT Plan of Treatment Not on file Procedures Procedure Name Priority Date/Time Associated Diagnosis Comments POCT LIPID PANEL Routine 08/19/2024 10:2 2 AM CDT Coronary artery disease involving chilkoot coronary artery of chilkoot heart without angina pectoris from Last 3 [...] nal Result from Last 3 Months Insurance [facility] MEDICARE ADVANTAGE [facility] Address: [facility] [address] [place] [address] COMMERCIAL GENERIC MEDICARE MEDICARE COMMERCIAL [facility]IC [facility] MEDIC[facility] Address: [address] [address] [place] [address] MEDICARE COMMERCIAL GENERIC Advance Directives For more information, please contact: [phone] * Full Code (Latest Code Status on File) Date Activated Date Inactivated Comments 02/03/2021 7:58 PM 02/14/2021 5:13 PM * Full Code Date Activated Date Inactivated Comments 01/25/2021 8:58 AM 02/03/2021 7:39 PM Care Teams Attending Urologist Relationship Specialty Start Date End Date Harjit Santos MD PCP - General Family Medicine 03/09/21 Sylvester Patrick MD [address] [address] [place] [address] Referring Physician Neurology 06/05/22 Sudeep Prajapati MD [address] [facility] NEUROLOGY SLEEP MED, [facility] [address] [place] [address] Consulting Physician Sleep Medicine 04/29/23
--- OUTSIDE RECORDS SUMMARY | 2024-10-30 11:11 | XMS_ITS | Clinical Summary ---
Author Organization [facility] [employer] Address [address] [place] [address] Care Team Providers Care Sixth Grade Teacher Name Role Phone Harjit Santos MD Primary Care Provider [phone] Source Comments [facility] [employer],non-owned Affiliates and Associated Physician Practices is amultiple site organization consisting of ambulatory clinics and hospital sitesin [place], [place] and [place]. This disclosure is being madepursuant to the Care Everywhere program and may not contain all information available regarding this patient. Last updated 17.[facility] [employer] Allergies Active Allergy Reactions Criticality Noted Date [...] - 09/04/2024 11:59 PM CDT Hospital Encounter [facility] Imaging Services - Radiology [address] [place] [address] Discharge Disposition: Home or Self Care 09/04/2024 9:20 AM CDT Office Visit [facility] Neurosciences [address] [place] [phone] Sylvester Patrick MD Pompe disease (HCC) (Primary Dx); Neuromuscular respiratory weakness (HCC); Chronic left shoulder pain; Meralgia paraesthetica, left 09/04/2024 Results Follow-Up [facility] Neurosciences [address] [place] [phone] Sylvester Patrick MD 09/04/2024 Travel 08/10/2024 Telephone [facility] Neurosciences [address] 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 Gender Identity Not on file Sexual Orientation [...] st Contact Info) Description 02/12/2025 11:00 AM FOOD SERVICE REPRESENTATIVE Office Visit [facility]sciences [address] [facility] [address] [place] [phone] Sylvester Patrick MD [address] [facility] 200 [place] [address] Health Maintenance Due Date Last [...] 2023 DEPRESSION SCREENING 04/08/2024 08/01/2022 INFLUENZA VACCINE (#1) 2024 , 12/10/2018, 12/17/2017, Additional history exists HEPATITIS B [...] MEDICARE MEDICARE SUPPLEMENT PAYOR GENERIC Care Teams Sixth Grade Teacher Relationship Specialty Start Date End Date Harjit Santos MD [address] [place] [address] PCP - General Family Medicine 04/27/22
--- OUTSIDE RECORDS SUMMARY | 2024-10-30 11:11 | XMS_ITS | Clinical Summary ---
Author Organization [facility] Address [facility] [place] [address] Care Team Providers Care Oven Tender Name Role Phone Harjit Santos MD Primary Care Provider [phone] Allergies Active Allergy Reactions Criticality Noted Date Comments Codeine Shortness of Breath High 04/14/2022 Sulfa Antibiotics Rash Low 04/14/2022 Medications albuterol sulfate HFA (VENTOLIN HFA) 108 (90 Base) MCG/ACT inhaler Inhale 2 puffs into the lungs every 6 (six) hours as needed for Wheezing or Shortness of breath. 18 g 3 Active Active Problems Problem Noted Date Diagnosed Date Pompe's disease ([facility]) 11/23/2022 Encounters Date Type Department Care Team Description 10/21/2024 8:00 AM CDT Treatment [facility] [place] [address] Sylvester Patrick MD Infusion Therapy 10/21/2024 Travel 10/07/2024 8:00 AM CDT Treatment [facility] [place] [address] Sylvester Patrick MD Infusion Therapy 10/07/2024 Travel 09/23/2024 8:00 AM CDT Treatment [facility] [place] [address] Sylvester Patrick MD Infusion Therapy 09/23/2024 Travel 09/10/2024 8:00 AM CDT Treatment [facility] [place] [address] Sylvester Patrick MD Infusion Therapy 09/10/2024 Travel 08/26/2024 8:00 AM CDT Treatment [facility] [place] [address] Sylvester Patrick MD Infusion Therapy 08/26/2024 Travel from Last 3 Months Social History [...] Sign Reading Time Taken Comments Blood Pressure 124/74 10/21/2024 1:30 PM CDT Pulse 78 10/21/2024 1:30 PM CDT Temperature 36.7 C (98.1 F) 10/21/2024 7:59 AM CDT Respiratory Rate 20 10/21/2024 1:30 PM CDT Oxygen Saturation 99% 10/21/2024 1:30 PM CDT Inhaled Oxygen Concentration - - Weight 56.2 kg (124 lb) 10/21/2024 7:46 AM CDT Height 160 cm (5' 3) 10/21/2024 7:46 AM CDT Body Mass Index 21.97 10/21/2024 7:46 AM CDT Plan of Treatment Upcoming Encounters Date Type Department Care Team (Late st Contact Info) Description 11/04/2024 8:00 AM CDT Treatment [facility] [place] [address] Sylvester Patrick MD [address] [facility] [address] [place] [address] 11/18/2024 8:00 AM CDT Treatment [facility] [place] [address] None, Provider, 12/02/2024 8:00 AM CDT Treatment [facility] [place] [address] None, Provider, 12/16/2024 8:00 AM CDT Treatment [facility] [place] [address] None, Provider, 12/30/2024 8:00 AM CDT Treatment [facility] [place] [address] None, Provider, 01/13/2025 8:00 AM CDT Treatment [facility] [place] [address] None, Provider, 02/03/2025 8:00 AM CDT Treatment [facility] [place] [address] Sylvester Patrick MD [address] [place] [phone] 02/17/2025 8:00 AM BUN MACHINE OPERATOR Treatment [facility] [place] [address] Sylvester Patrick MD [address] [place] [phone] 03/03/2025 8:00 AM BUN MACHINE OPERATOR Treatment [facility] [place] [address] Sylvester Patrick MD [address] [facility] [address] [place] [address] Health Maintenance Due [...] Insurance MEDICARE GENERIC - COMMERCIAL Care Teams Oven Tender Relationship Specialty Start Date End Date Harjit Santos MD [address] [address] PCP - General FAMILY PRACTICE 04/14/22
--- OUTSIDE RECORDS SUMMARY | 2024-10-30 11:11 | XMS_ITS | Encounter Summary ---
Author Organization [facility] Address [address] [place] [address] Care Team Providers Care Retort Or Condenser Press Operator Name Role Phone Harjit Santos MD Primary Care Provider [phone] Encounter Details Date Type Department Care Team (Late st Contact Info) Description 11/23/[address] [facility] [place] [address] Eric Martinez MD [address] [address] Social History Tobacco Use Types [...] Info) Description 11/04/2024 8:[address] [facility] [place] [address] Sylvester Patrick MD [address] [address] [place] [phone] 11/18/2024 8:00 AM CDT Treatment [facility] [place] [address] None, Provider, 12/02/2024 8:00 AM CDT Treatment [facility] [place] [address] None, Provider, 12/16/2024 8:00 AM CDT Treatment [facility] [place] [address] None, Provider, 12/30/2024 8:00 AM CDT Treatment [facility] [place] [address] None, Provider, 01/13/2025 8:00 AM CDT Treatment [facility] [place] [address] None, Provider, 02/03/2025 8:00 AM CDT Treatment [facility] [place] [address] Sylvester Patrick MD [address] [place] [address] 02/17/2025 8:00 AM SILVICULTURE FORESTER Treatment [facility] [place] [address] Sylvester Patrick MD [address] [place] [address] 03/03/2025 8:00 AM SILVICULTURE FORESTER Treatment [facility] [place] [address] Sylvester Patrick MD [address] [facility] [address] [place] [address] documented as of this encounter Visit Diagnoses [...] Glycogenosis documented in this encounter Care Teams Retort Or Condenser Press Operator Relationship Specialty Start Date End Date Harjit Santos MD [address] [place] [address] PCP - General FAMILY PRACTICE 04/14/22 documented as of this encounter
--- OUTSIDE RECORDS SUMMARY | 2024-10-30 11:11 | XMS_ITS | Clinical Summary ---
Author Organization [facility] [address] Address [address] [place] [address] Care Team Providers Care Commercial Loan Specialist Name Role Phone Harjit Santos MD Primary Care Provider [phone] Sylvester Patrick MD Unavailable Sudeep Prajapati MD [...] 4 02/03/2021 Coronary artery disease invo lving reno-sparks heart without angina pectoris 01/24/2021 Overview (01/26/2021): Added automatically from request for surgery [id number] Hypertension 11/06/2012 Shortness of breath 11/06/2012 Hypercholesterolemia 11/06/2012 Encounters Date Type Department Care Team Description 10/28/2024 10:30 AM CDT Telemedicine [facility] Neuro Sleep [address] [place] [address] Sudeep Prajapati MD 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); Pompe disease (HCC) 10/21/2024 Documentation [facility] Neuro Sleep [address] [facility] 6th Floor [address] [place] [address] Riya Luo RN 09/22/2024 Orders Only [facility] Orthopedics and Sports Medicine [address] [place] [address] [address] [address] Ammon Langford MD Nondisplaced fracture of greater trochanter of right femur, initial encounter for closed fracture (HCC) (Primary Dx) 09/22/2024 Telephone [facility] Orthopedics and Sports Medicine [address] [place] [address] [address] [phone] Ammon Langford MD 08/19/2024 10:15 AM CDT Office Visit [facility] Group Cardiology [address] [facility] [address] [place] [address] Fred Meyers MD Coronary artery disease involving reno-sparks coronary artery of reno-sparks heart without angina pectoris (Primary Dx); S/P [...] on file Legal Sex Female 12:17 AM GEOTHERMAL 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 PUMP 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 Gender Identity Not on file Sexual Orientation Not on file Obstetrics History Last Filed Vital Signs Vital Sign Reading Time Taken Comments Blood Pressure 112/70 08/19/2024 10:30 AM CDT Pulse 79 08/19/2024 10:30 AM CDT Temperature 36.7 C (98 F) 06/05/2022 8:14 AM GEOTHERMAL HEAT PUMP MACHINIST Respiratory Rate 18 05/03/2022 11:29 AM GEOTHERMAL HEAT PUMP MACHINIST Oxygen Saturation 98% 08/19/2024 10:30 AM CDT Inhaled Oxygen Concentration - - Weight 55.8 kg (123 lb) 10/28/2024 10:46 AM CDT Height 160 cm (5' 3) 10/28/2024 10:46 AM CDT Body Mass Index 21.79 10/28/2024 10:46 AM CDT Plan of Treatment Health Maintenance [...] 2023 01/06/2021, 05/31/2020, 05/08/2020 Influenza Vaccine (#1) 2024 , 12/14/2020, 12/10/2018, Additional history exists Procedures Procedure Name Priority Date/Time Associated Diagnosis Comments POCT LIPID PANEL Routine 08/19/2024 10:2 2 AM CDT Coronary artery disease involving reno-sparks coronary artery of reno-sparks heart without angina pectoris from Last 3 [...] nal Result from Last 3 Months Insurance [facility] MEDICARE ADVANTAGE COMMERCIAL GENERIC MEDICARE MEDICARE COMMERCIAL GENERIC [facility] REF MEDICARE COMMERCIAL GENERIC Advance Directives For more information, please contact: [phone] * Full Code (Latest Code Status on File) Date Activated Date Inactivated Comments 02/03/2021 7:58 PM 02/14/2021 5:13 PM * Full Code Date Activated Date Inactivated Comments 01/25/2021 8:58 AM 02/03/2021 7:39 PM Care Teams Commercial Loan Specialist Relationship Specialty Start Date End Date Harjit Santos MD PCP - General Family Medicine 03/09/21 Sylvester Patrick MD [facility] 200 [place] [address] Referring Physician Neurology 06/05/22 Sudeep Prajapati MD [address] [facility] NEUROLOGY SLEEP [facility] 600 [place] [address] Consulting Physician Sleep Medicine 04/29/23
--- OUTSIDE RECORDS SUMMARY | 2024-10-30 11:11 | XMS_ITS | Encounter Summary ---
Author Organization [facility] Address [address] [place] [address] Care Team Providers Care Refining Supervisor Name Role Phone Harjit Santos MD Primary Care Provider [phone] Encounter Details Date Type Department Care Team (Late Contact Info) Description 09/04/2024 Results Follow-Up [facility] [facility] [address] [place] [address] Sylvester Patrick MD [address] [place] [address] Social History Tobacco Use Types [...] on file Legal Sex Female 11:14 AM DIRECTOR DESIGN Gender Identity Not on file Sexual Orientation Not on file documented as of this encounter Plan of Treatment Upcoming Encounters Date Type Department Care Team (Late Contact Info) Description 02/12/2025 11:00 AM DIRECTOR DESIGN Office [facility] [facility] [address] [place] [address] Sylvester Patrick MD [address] [place] [address] documented as of this encounter Visit Diagnoses Not on filedocumented in this encounter Care Teams Refining Supervisor Relationship Specialty Start Date End Date Harjit Santos MD [address] [place] [address] PCP - General Family Medicine 04/27/22 documented as of this encounter
--- OUTSIDE RECORDS SUMMARY | 2024-10-30 11:11 | XMS_ITS | Encounter Summary ---
Author Organization [facility] Address [facility] [place] [address] Care Team Providers Care Zinc Miner Blasting Name Role Phone Harjit Santos MD Primary Care Provider [phone] Encounter Details Date Type Department Care Team (Late st Contact Info) Description 12/04/2023 Therapy Plan [facility] [place] [address] Consuelo Monzon, RN Social History Tobacco Use [...] Department Care Team (Late Contact Info) Description 11/04/2024 8:00 AM CDT Treatment [facility] [place] [address] Sylvester Patrick MD [address] [place] [address] [place] [phone] 11/18/2024 8:00 AM CDT Treatment [facility] [place] [facility] [place] [address] None, Provider, 12/02/2024 8:00 AM CDT Treatment [facility] [place] [address] None, Provider, 12/16/2024 8:00 AM CDT Treatment [facility] [place] [address] None, Provider, 12/30/2024 8:00 AM CDT Treatment [facility] [place] [address] None, Provider, 01/13/2025 8:00 AM CDT Treatment [facility] [place] [address] None, Provider, 02/03/2025 8:00 AM CDT Treatment [facility] [place] [address] Sylvester Patrick MD [address] [place] [address] 02/17/2025 8:00 AM MANUAL TESTER Treatment [facility] [place] [address] Sylvester Patirck MD [address] [place] [address] 03/03/2025 8:00 AM MANUAL TESTER Treatment [facility] [place] [address] Sylvester Patrick MD [address] [place] [address] documented as of this encounter Visit Diagnoses Not on filedocumented in this encounter Care Teams Zinc Miner Blasting Relationship Specialty Start Date End Date Harjit Santos MD [address] [address] PCP - General FAMILY PRACTICE 04/14/22 documented as of this encounter
[2024-10-30 11:14] VITALS: BP 114/78; PULSE 105; RESP 16; TEMP 36.7; O2SAT 99
--- NOTE | 2024-10-30 11:25 | ED_ITS ---
HPI - Female Genitourinary General Chief complaint: Urogenital-Female Stated complaint: Urinary Problem Time Seen by Provider: 10/30/24 11:25 Source: patient and family Mode of arrival: ambulatory Limitations: no limitations History of Present Illness HPI Narrative: 74 yo F presents with urinary frequency, urgency, burning and chills. Symptoms for approx. 1 wk. Denies N/V. Afebrile. All systems reviewed and negative except as noted above. Related Data Home Medications ?Medication ?Instructions ?Recorded ?Confirmed ?Last Taken ?Type aspirin 81 mg tablet,delayed 81 mg PO DAILY 03/01/21 10/30/24 08/07/24 History release (Adult Aspirin Regimen) magnesium 250 mg tablet 500 mg PO DAILY 11/12/22 10/30/24 Unknown History Allergies Allergy/AdvReac Type Severity Reaction Status Date / Time carbamazepine Allergy Unknown Verified 10/30/24 11:10 codeine Allergy Unknown Verified 10/30/24 11:10 fenofibrate Allergy Unknown Verified 10/30/24 11:10 Sulfa (Sulfonamide Allergy Unknown Verified 10/30/24 11:10 Antibiotics) duloxetine (From Cymbalta) AdvReac Intermediate Other Verified 10/30/24 11:10 PMF Past Medical History Medical History Partial tear of common extensor tendon of left elbow Abnormal small bowel x-ray Normocytic anemia Pompe disease Transient ischemic attack Arthritis Hyperlipidemia Hypertension Cerebrovascular accident 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 History of mumps Herpesviral infection, unspecified Left carpal tunnel syndrome Cubital tunnel syndrome on left Surgical History Surgical History History of four vessel coronary artery bypass graft (01/2021) History of knee replacement, total History of open heart surgery History of total replacement of both hip joints History of cholecystectomy History of bilateral cataract extraction Status post repair of paraesophageal diaphragmatic hernia History of cardiac catheterization History of elbow surgery Left cubital tunnel release History of carpal tunnel surgery of left wrist History of thoracotomy History of lumbar surgery History of appendectomy Family History Family History Father , age 53 Acute myocardial infarction Family history of coronary artery disease Hypertension Sibling Macular degeneration AMD (acid maltase deficiency) Mother , age 76 Family history of elevated blood lipids Diabetes mellitus Family history of diabetes mellitus in first degree relative Patient's mother is Family history of coronary artery disease Cerebrovascular accident Sibling Diabetes mellitus Hypertension Daughter Allergies Hypertension Social History Social History Social History: Surrogate decision-maker: Horacio Arce, . CODE STATUS: Full code. Smoking status: Never smoker Second hand tobacco smoke exposure: No Alcohol intake: never Substance use: never Substance use type: does not use Do You Feel Safe in your Home?: Yes Lack of Transportation: No Lack of Food: Never True Current Housing: I Have Housing Concerned About Future Housing: No Difficulty Paying Gas/Electric Bills: No Difficulty Paying for Meds: No Currently Unemployed: No Education: High School Diploma/GED Difficulty w/ Childcare or Family Care: No Living arrangements: with family Additional living arrangements comments: Lives with her in [place]. She has an adult daughter. 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 Spiritual care concerns: No Comments At time of signature, agree with nursing past medical, surgical, social and family history. There is no relevant family history pertinent to the presenting complaint. Exam Narrative: GENERAL: This is a well-nourished, well-developed patient, in no apparent distress. HEAD: normocephalic, atraumatic. EYES: PERRL. Sclera clear/white. Vision is grossly intact. EARS: External ears normal NOSE: External nose normal NECK: Neck supple, non-tender without lymphadenopathy, masses or thyromegaly. CARDIOVASCULAR: Regular rate and rhythm without murmurs, gallops, or rubs. RESPIRATORY: Clear to auscultation. Breath sounds equal bilaterally. No wheezes, rales, or rhonchi. SKIN: warm, Dry, intact with no suspicious lesions or rash, good texture and turgor. NEURO: awake, alert, and oriented to person, place and time. There were no obvious focal neurologic abnormalities. EXTREMITIES: No joint tenderness, effusion, or edema noted. Course Course Level of Care: Express Care Visit Vital Signs Vital signs: Vital Signs Temperature 36.7 C 10/30/24 11:14 Pulse Rate 105 H 10/30/24 11:14 Respiratory Rate 16 10/30/24 11:14 Blood Pressure 114/78 10/30/24 11:14 Pulse Oximetry 99 10/30/24 11:14 Oxygen Delivery Room Air 10/30/24 11:14 Temperature 36.7 C 10/30/24 11:14 Pulse Rate 105 H 10/30/24 11:14 Respiratory Rate 16 10/30/24 11:14 Blood Pressure 114/78 10/30/24 11:14 Pulse Oximetry 99 10/30/24 11:14 Oxygen Delivery Room Air 10/30/24 11:14 reviewed MDM - Female Genitourinary MDM Narrative Medical decision making narrative: urinalysis positive blood, nitrite, leukocytes. Pt well appearing, nontoxic. Will treat with augmentin. Lab Data Labs: Lab Results 10/30/24 Range/Units 11:49 POC Urine Color Yellow POC Urine Clarity Clear POC Urine pH 5.5 POC Ur Specif New Point 1.000 POC Urine Protein Negative (Negative) POC Ur Glucose (UA) Negative (Negative) POC Urine Ketones Negative (Negative) POC Urine Blood Trace (Negative) POC Urine Nitrite Positive (Negative) POC Urine Bilirubin Negative (Negative) POC Urine Urobilinogen 0.2 POC U Leukocyte Esteras 1+ (Negative) Discharge Plan Discharge Clinical Impression: Urinary tract infection Patient Disposition: Home Condition: Stable Instructions: Antibiotic Form, Urinary Tract Infection in Women (ED) Additional Instructions: Take antibiotic as prescribed until gone. Drink plenty of water to prevent dehydration. Follow up with your doctor as needed. If you have severe pain, vomiting, fever go to the ER. Patient Language: Turkish Prescriptions: New amoxicillin-pot clavulanate [Augmentin] 500-125 mg tablet 1 tablet PO BID 7 Days Qty: 14 0RF No Action aspirin [Adult Aspirin Regimen] 81 mg tablet,delayed release (DR/EC) 81 mg PO DAILY linaclotide 72 mcg capsule 72 mcg capsule 0RF Linzess 145 mcg capsule 145 mcg PO DAILY Qty: 90 3RF atorvastatin 80 mg tablet 80 mg PO DAILY Qty: 90 0RF Rx Instructions: cardio Nexviazyme 100 mg recon soln 1,089 mg IV ONCE Qty: 1 0RF Patient Comments: every other saturday Rx Instructions: infusion for Pompee's disease magnesium 250 mg tablet 500 mg PO DAILY Follow-up/Referrals: Harjit Santos MD [Primary Care Provider] - Time of Disposition: 11:57
[2024-10-30 11:53] LABS: EDUAAPPEAR Clear; EDUABILI Negative (Negative); EDUABLOOD Trace (Negative); EDUACOLOR1 Yellow; EDUAGLUCOSE Negative (Negative); EDUAKETONE Negative (Negative); EDUALEUKO 1+ (Negative); EDUANITRATE Positive (Negative); EDUAPH 5.5; EDUAPROTEIN Negative (Negative); EDUASPGRAVITY 1.000; EDUAUROBILI 0.2
== END 2024-10-30 12:02 | disposition home or self-care (01) ==
PROVIDERS: Emergency Provider Nurse Practitioner Family; PCP Family Medicine
DX: N39.0 Urinary tract infection, site not specified (principal); I10 Essential (primary) hypertension; E78.5 Hyperlipidemia, unspecified; M19.90 Unspecified osteoarthritis, unspecified site; Z86.73 Personal history of transient ischemic attack (TIA), and cerebral infarction without residual deficits; Z79.82 Long term (current) use of aspirin; Z95.1 Presence of aortocoronary bypass graft; Z96.643 Presence of artificial hip joint, bilateral; Z98.42 Cataract extraction status, left eye; Z98.41 Cataract extraction status, right eye
CPT/HCPCS: 81003; 99213; G0463